=== PATIENT | female | born 1980 | race Caucasian/White ===

== ENCOUNTER 2019-05-23 13:44 | Day surgery (SDC) | payer MEDICAID ==
[2019-05-23] VITALS (8 sets, daily range): BP systolic 81–105; BP diastolic 53–72
[~2019-05-23] VITALS: Ht 157.4 cm; Wt 50.0 kg
[~2019-05-23 13:44] MED LIST: CEPH250S PO; DOXY-233 PO; IBP600T1 PO; LANS15CA5 PO; LORA10TA2 PO; METH0.2T45 PO; ONDN4T PO; PROM12.59 PO
--- NOTE | 2019-05-23 13:57 | ED Abdominal Pain ---
General Stated Complaint: R SIDE ABD PAIN, N/V Source of Information: Patient History of Present Illness Date Seen by Provider: May 23, 2019 Time Seen by Provider: 13:54 Initial Comments To ER with severe right-sided lower abdominal pain that began last night associated with nausea and vomiting. History of a partial hysterectomy but she still has both ovaries. States that her only medical history is of degenerative disc disease and scoliosis, she states that she is also diabetic but doesn't take any medications for it. She is from [facility], just moved here. Keeps her eyes closed when talking to us, has a shaved head, no teeth. Timing/Duration: 1-2 Days Severity/Quality: Moderate Radiation: No Radiation Activities at Onset: None Allergies and Home Medications Allergies Coded Allergies: Bleach (Sodium Hypochlorite) (Unverified Allergy, Unknown, 05/23/19) Latex, Natural Rubber (Unverified Allergy, Unknown, 05/23/19) Penicillins (Verified Allergy, Unknown, 05/23/19) alprazolam (Unverified Allergy, Unknown, 05/23/19) cinnamon (Unverified Allergy, Unknown, 05/23/19) clonidine (Verified Allergy, Unknown, 05/23/19) codeine (Verified Allergy, Unknown, 05/23/19) cyclobenzaprine (Unverified Allergy, Unknown, 05/23/19) hydrocodone (Verified Allergy, Unknown, 05/23/19) iodine (Verified Allergy, Unknown, 05/23/19) RASH methocarbamol (Unverified Allergy, Unknown, 05/23/19) pneumococcal vaccine (Unverified Allergy, Unknown, 05/23/19) tramadol (Unverified Allergy, Unknown, 05/23/19) Uncoded Allergies: BEES (Allergy, Unknown, 05/23/19) BODY POWDER (Allergy, Unknown, 05/23/19) FLU SHOT (Allergy, Unknown, 05/23/19) STEROIDS (Allergy, Unknown, 05/23/19) WASP (Allergy, Unknown, 05/23/19) Home Medications Doxycycline Monohydrate 100 Mg Tablet, 100 MG PO BID Prescribed by: XANDER BRANDT on 11/11/121845 Ibuprofen 600 Mg Tab, 600 MG PO Q6H Prescribed by: XANDER BRANDT on 11/11/121845 Methylergonovine Maleate 0.2 Mg Tab, 1 EACH PO TID Prescribed by: XANDER BRANDT on 11/11/12 1846 Ondansetron Hcl 4 Mg Tab, 1 TAB PO BID, (Reported) Patient Home Medication List Home Medication List Reviewed: Yes Review of Systems Review of Systems Constitutional: see HPI EENTM: No Symptoms Reported Respiratory: No Symptoms Reported Cardiovascular: No Symptoms Reported Gastrointestinal: See HPI, Abdominal Pain, Nausea Genitourinary: No Symptoms Reported Musculoskeletal: no symptoms reported Skin: no symptoms reported Psychiatric/Neurological: No Symptoms Reported Endocrine: No Symptoms Reported Hematologic/Lymphatic: No Symptoms Reported Past Vxkdrhe-Ajgyzt-Tctcxl Hx Patient Social History Recent Foreign Travel: No Past Medical History Asthma Reproductive Disorders: No Female Reproductive Disorders: Menstrual Problems Sexually Transmitted Disease: No HIV/AIDS: No Bladder Infection Cervical ADD/ADHD, Bipolar, Schizophrenia, Depression Family Medical History No Pertinent Family Hx Physical Exam Vital Signs Vital Signs - First Documented 05/23/19 13:44 Temp 38.1 Pulse 98 Resp 18 B/P (MAP) 84/44 (57) Pulse Ox 99 O2 Delivery Room Air Capillary Refill : Height/Weight/BMI Height: '" Weight: 97lbs. oz. [id number]; BMI Method:Stated General Appearance: WD/WN, no apparent distress HEENT: PERRL/EOMI, normal ENT inspection Respiratory: no respiratory distress, no accessory muscle use Gastrointestinal: normal bowel sounds, soft, tenderness Extremities: normal range of motion, non-tender Neurologic/Psychiatric: alert, normal mood/affect, oriented x 3 Skin: normal color, warm/dry Progress/Results/Core Measures Results/Orders Lab Results Laboratory Tests Test 05/23/19 13:55 05/23/19 14:13 Range/Units White Blood Count 10.7 4.3-11.0 10^3/uL Red Blood Count 4.92 4.35-5.85 10^6/uL Hemoglobin 14.7 11.5-16.0 G/DL Hematocrit 42 35-52 % Mean Corpuscular Volume 86 80-99 FL Mean Corpuscular Hemoglobin 30 25-34 PG Mean Corpuscular Hemoglobin Concent 35 32-36 G/DL Red Cell Distribution Width 12.7 10.0-14.5 % Platelet Count 160 130-400 10^3/uL Mean Platelet Volume 10.9 H 7.4-10.4 FL Neutrophils (%) (Auto) 92 H 42-75 % Lymphocytes (%) (Auto) 4 L 12-44 % Monocytes (%) (Auto) 3 0-12 % Eosinophils (%) (Auto) 1 0-10 % Basophils (%) (Auto) 0 0-10 % Neutrophils # (Auto) 9.8 H 1.8-7.8 X 10^3 Lymphocytes # (Auto) 0.5 L 1.0-4.0 X 10^3 Monocytes # (Auto) 0.4 0.0-1.0 X 10^3 Eosinophils # (Auto) 0.1 0.0-0.3 10^3/uL Basophils # (Auto) 0.0 0.0-0.1 10^3/uL Neutrophils % (Manual) 92 % Lymphocytes % (Manual) 2 % Monocytes % (Manual) 3 % Eosinophils % (Manual) 1 % Band Neutrophils 2 % Toxic Granulation 1+ Dohle Bodies MODERATE Blood Morphology Comment NORMAL Sodium Level 138 135-145 MMOL/L Potassium Level 3.9 3.6-5.0 MMOL/L Chloride Level 107 98-107 MMOL/L Carbon Dioxide Level 22 21-32 MMOL/L Anion Gap 9 5-14 MMOL/L Blood Urea Nitrogen 15 7-18 MG/DL Creatinine 0.75 0.60-1.30 MG/DL Estimat Glomerular Filtration Rate > 60 BUN/Creatinine Ratio 20 Glucose Level 110 H 70-105 MG/DL Calcium Level 9.5 8.5-10.1 MG/DL Corrected Calcium 9.1 8.5-10.1 MG/DL Total Bilirubin 0.6 0.1-1.0 MG/DL Aspartate Amino Transf (AST/SGOT) 12 5-34 U/L Alanine Aminotransferase (ALT/SGPT) 7 0-55 U/L Alkaline Phosphatase 56 40-136 U/L Total Protein 6.6 6.4-8.2 GM/DL Albumin 4.5 3.2-4.5 GM/DL Urine Color ORANGE Urine Clarity SL CLOUDY Urine pH 6.5 5-9 Urine Specific [place] 1.020 1.016-1.022 Urine Protein 1+ H NEGATIVE Urine Glucose (UA) NEGATIVE NEGATIVE Urine Ketones 1+ H NEGATIVE Urine Nitrite NEGATIVE NEGATIVE Urine Bilirubin 1+ H NEGATIVE Urine Urobilinogen 2.0 < = 1.0 MG/DL Urine Leukocyte Esterase 2+ H NEGATIVE Urine RBC (Auto) NEGATIVE NEGATIVE Urine RBC NONE /HPF Urine WBC 10-25 H /HPF Urine Crystals NONE /LPF Urine Bacteria MODERATE H /HPF Urine Casts NONE /LPF Urine Mucus MODERATE H /LPF Urine Culture Indicated YES Urine Opiates Screen NEGATIVE NEGATIVE Urine Oxycodone Screen NEGATIVE NEGATIVE Urine Methadone Screen NEGATIVE NEGATIVE Urine Propoxyphene Screen NEGATIVE NEGATIVE Urine Barbiturates Screen NEGATIVE NEGATIVE Ur Tricyclic Antidepressants Screen NEGATIVE NEGATIVE Urine Phencyclidine Screen NEGATIVE NEGATIVE Urine Amphetamines Screen NEGATIVE NEGATIVE Urine Methamphetamines Screen NEGATIVE NEGATIVE Urine Benzodiazepines Screen NEGATIVE NEGATIVE Urine Cocaine Screen NEGATIVE NEGATIVE Urine Cannabinoids Screen NEGATIVE NEGATIVE My Orders Orders - MARTIN HUFF [employer] Cbc With Automated Diff (05/23/19 13:52) Comprehensive Metabolic Panel (05/23/19 13:52) Ua Culture If Indicated (05/23/19 13:52) Drug Screen Stat (Urine) (05/23/19 13:52) Ed Iv/Invasive Line Start (05/23/19 13:52) Ns Iv 1000 Ml (Sodium Chloride 0.9%) (05/23/19 14:00) Ketorolac Injection (Toradol Injection) (05/23/19 14:00) Ct Abd/Pelvis Wo(Kidney Stone) (05/23/19 13:52) Ondansetron Injection (Zofran Injectio (05/23/19 14:15) Manual Differential (05/23/19 13:55) Medications Given in ED Current Medications Medications Dose Ordered Sig/Delon Route Start Time Stop Time Status Last Admin Dose Admin Ketorolac Tromethamine 15 mg ONCE ONCE IVP 05/23/19 14:00 05/23/19 14:01 DC 05/23/19 14:15 15 MG Ondansetron HCl 8 mg ONCE ONCE IVP 05/23/19 14:15 05/23/19 14:16 DC 05/23/19 14:15 8 MG Vital Signs/I&O 05/23/19 13:44 Temp 38.1 Pulse 98 Resp 18 B/P (MAP) 84/44 (57) Pulse Ox 99 O2 Delivery Room Air Departure Communication (Admissions) Time/Spoke to Admitting Phy: 15:[address] Bills, recommends appendectomy Impression Primary Impression: Urinary tract infection Additional Impressions: Right lower quadrant pain Appendicolith Disposition: ADMITTED INPATIENT Condition: Stable Admissions Decision to Admit Reason: Admit from ER (General) Decision to Admit/Date: May 23, 2019 Time/Decision to Admit Time: 15:39 Departure-Patient Inst. Referrals: NO,LOCAL PHYSICIAN (PCP/Family) Primary Care Physician MARTIN HUFF APRN May 23, 2019 13:57
[2019-05-23] MEDS ORDERED: NS IV 1000 ML 1,000 ML IV SCH (14:00)
[2019-05-23] MEDS ORDERED: KETOROLAC 30 MG/ML VIAL IVP ONE (14:00)
[2019-05-23 14:03] LABS: BASOPHILS % (AUTO) 0 % (0-10); EOSINOPHILS # (AUTO) 0.1 10^3/uL (0.0-0.3); EOSINOPHILS % (AUTO) 1 % (0-10); HEMATOCRIT 42 % (35-52); HEMOGLOBIN 14.7 G/DL (11.5-16.0); LYMPHOCYTES # (AUTO) 0.5 X 10^3 (1.0-4.0); LYMPHOCYTES % (AUTO) 4 % (12-44); MEAN CORPUSCULAR HEMOGLOBIN 30 PG (25-34); MEAN CORPUSCULAR HGB CONC 35 G/DL (32-36); MEAN CORPUSCULAR VOLUME 86 FL (80-99); MEAN PLATELET VOLUME 10.9 FL (7.4-10.4); MONOCYTES # (AUTO) 0.4 X 10^3 (0.0-1.0); MONOCYTES % (AUTO) 3 % (0-12); NEUTROPHILS # (AUTO) 9.8 X 10^3 (1.8-7.8); NEUTROPHILS % (AUTO) 92 % (42-75); PLATELET COUNT 160 10^3/uL (130-400); RED CELL DISTRIBUTION WIDTH 12.7 % (10.0-14.5); WHITE BLOOD COUNT 10.7 10^3/uL (4.3-11.0)
[2019-05-23] MEDS ORDERED: ONDANSETRON 4 MG/2 ML (SDV) Z0FRAN IVP ONE (14:15)
[2019-05-23 14:20] LABS: CLARITY,URINE SL CLOUDY; COLOR,URINE ORANGE; GLUCOSE, URINE (UA) NEGATIVE (NEGATIVE); KETONES,URINE 1+ (NEGATIVE); LEUKOCYTE ESTERASE ,URINE 2+ (NEGATIVE); NITRITE,URINE NEGATIVE (NEGATIVE); PH,URINE 6.5 (5-9); PROTEIN,URINE 1+ (NEGATIVE)
[2019-05-23 14:27] LABS: ALANINE AMINOTRANSFERASE 7 U/L (0-55); ALBUMIN 4.5 GM/DL (3.2-4.5); ALKALINE PHOSPHATASE 56 U/L (40-136); BILIRUBIN,TOTAL 0.6 MG/DL (0.1-1.0); BUN/CREATININE RATIO 20; CALCIUM 9.5 MG/DL (8.5-10.1); CARBON DIOXIDE 22 MMOL/L (21-32); CHLORIDE 107 MMOL/L (98-107); CREATININE SERUM 0.75 MG/DL (0.60-1.30); GFR ESTIMATED > 60; GLUCOSE 110 MG/DL (70-105); POTASSIUM 3.9 MMOL/L (3.6-5.0); SODIUM 138 MMOL/L (135-145); TOTAL PROTEIN 6.6 GM/DL (6.4-8.2)
[2019-05-23 14:33] LABS: AMPHETAMINE SCREEN, URINE NEGATIVE (NEGATIVE); BARBITURATE SCREEN URINE NEGATIVE (NEGATIVE); BENZODIAZEPINES SCREEN URINE NEGATIVE (NEGATIVE); CANNABINOID SCREEN, URINE NEGATIVE (NEGATIVE); COCAINE SCREEN URINE NEGATIVE (NEGATIVE); METHADONE STAT NEGATIVE (NEGATIVE); METHAMPHETAMINE SCREEN URINE S NEGATIVE (NEGATIVE); OPIATE SCREEN URINE NEGATIVE (NEGATIVE); OXYCODONE STAT NEGATIVE (NEGATIVE); PROPOXYPHENE STAT NEGATIVE (NEGATIVE); TRICYCLIC ANTIDEPRESSANTS SCRE NEGATIVE (NEGATIVE)
[2019-05-23 14:34] LABS: BAND NEUTROPHILS 2 %; EOSINOPHILS % (MANUAL) 1 %; LYMPHOCYTES % (MANUAL) 2 %; MONOCYTES % (MANUAL) 3 %; NEUTROPHILS % (MANUAL) 92 %; RBC MORPH NORMAL
[2019-05-23 14:35] LABS: TOXIC GRANULATION/VACUOLAZATIO 1+
[2019-05-23 14:45] LABS: BACTERIA,URINE MODERATE /HPF
[2019-05-23 14:46] LABS: BILIRUBIN,URINE 1+ (NEGATIVE)
--- NOTE | 2019-05-23 15:19 | Diagnostic Imaging Report ---
CLINICAL INDICATION: Patient with nausea, vomiting, right lower quadrant pain, and fever with onset last night and is worse today. Patient has history of kidney stones. EXAM: CT exam of the abdomen and pelvis is performed without IV or oral contrast using stone protocol. Coronal and sagittal reformatted images were created. Auto Exposure Controls were utilized during the CT exam to meet ALARA standards for radiation dose reduction. COMPARISONS: None. FINDINGS: Visualized lung bases: Unremarkable. Liver: Unremarkable as visualized. Gallbladder: Unremarkable. Pancreas: Unremarkable as visualized. Spleen: Unremarkable as visualized. Adrenal glands: Unremarkable. Kidneys/ ureters: Unremarkable as visualized. Aorta: Unremarkable as visualized. Intra-abdominal/retroperitoneal contents: Unremarkable. Intestines: Unremarkable as visualized. Appendix: There is high-density material seen within the proximal appendix. The distal aspect of the appendix is partially obscured by closely adjacent small bowel. There is no adjacent fat stranding and the visualized portion of the appendix is unremarkable. Bladder: Unremarkable as visualized. Pelvic organs: The uterus is surgically resected. The expected regions of the adnexa bilaterally show no significant abnormality. There is a small amount of free fluid in the pelvis. Extra-abdominal/ pelvis regions: Unremarkable. Abdominal wall: Unremarkable. Bones: There is chronic bilateral L5 spondylolysis with grade 1 anterolisthesis of L5 on S1. IMPRESSION: 1: The appendix is not completely visualized, but the proximal and mid portions show no dilation or adjacent fat stranding. There is high density within the proximal appendix which may represent appendicolith or ingested debris. The distal portion of the appendix is obscured by closely adjacent small bowel. There is no adjacent fat stranding seen. If there is continued concern for appendicitis, then repeat CT scan with long oral contrast prep to opacify the distal intestines and cecum would help better evaluate. 2: Small amount of free fluid in the pelvis is seen which may be physiologic. 3: Chronic bilateral L5 spondylolysis with grade 1 anterolisthesis of L5 on S1. Dictated by: Dictated on workstation # [id number]
--- NOTE | 2019-05-23 15:22 | NUR ---
PT RESTING QUIETLY, FAMILY AT BEDSIDE. NO DISTRESS OR DISCOMFORT NOTED. NO OTHER C/O VOICED
[2019-05-23] MEDS ORDERED: metroNIDAZOLE 500MG/100ML IVPB 100 ML IV ONE (15:45)
[2019-05-23] MEDS ORDERED: CIPROFLOXACIN IV 400MG/200ML 200 ML IV ONE (15:45)
--- NOTE | 2019-05-23 15:52 | NUR ---
ANESTHESIA ET MED STUDENTS TO BEDSIDE
[2019-05-23] MEDS ORDERED: ROCURONIUM 10 MG/ML 5 ML SYRINGE IV ONE (16:00)
[2019-05-23] MEDS ORDERED: SEVOFLURANE (ULTANE) 15 ML INHAL SOLN ONE (16:00)
[2019-05-23] MEDS ORDERED: LIDOCAINE PF 2% 5 ML (XYLOCAINE) VIAL ONE (16:00)
[2019-05-23] MEDS ORDERED: ONDANSETRON 4 MG/2 ML (SDV) Z0FRAN ONE (16:00)
[2019-05-23] MEDS ORDERED: SUCCINYLCHOLINE INJ 100 MG/5 ML SYR ONE (16:00)
[2019-05-23] MEDS ORDERED: fentaNYL INJECTION 100 MCG/2 ML AMP ONE (16:00)
[2019-05-23] MEDS ORDERED: proPOfol 200 MG/20 ML (DIPRIVAN) VIAL IV ONE (16:00)
[2019-05-23] MEDS ORDERED: MIDAZOLAM 2 MG/2 ML (VERSED) VIAL ONE (16:01)
[2019-05-23] MEDS ORDERED: BUP/EPI 0.5% 1:200,000 (SENSORCAINE) 30 ML VIAL ONE (16:08)
--- NOTE | 2019-05-23 16:10 | Consultation - Surgery ---
[facility] 05/23/19 1610: History of Present Illness History of Present Illness Patient Consulted On(natalie/time) 05/23/19 16:02 Date Seen by Provider: May 23, 2019 Time Seen by Provider: 16:02 History of Present Illness Kecia is a 38 year old female that presented to [facility] ER with RLQ abdominal pain. General surgery was consulted by Gael lion at the ER. Patient started having pain last nigh with subjective fever and associated N/V. Pain is localized to the RLQ and she denies radiation of pain at this time. It is exacerbated by movement and laying flat on back, She has not had food since 7pm last night and no drink since 4am today. She has not taken any pain Meds or ant- pyretics prior to arrival. Pertinent medical hx includes partial hystrectomy, rupture of ovarian cyst, "tympanostomy" and myringotomy. She also states she has an active right otitis media infection and is taking abx ear drops for it. She admits that her bp usually runs low in the 80s over 50s. Patient was positive for McBurney test and heal strike. CT findings showed appendicolith present and minimal fluid in peritoneum, but no sign of fat stranding or dilation of appendix. Patient states she had a bowel movement yesterday and no blood was noted she has not noticed changes in bowel caliper. Allergies and Home Medications Allergies Coded Allergies: Bleach (Sodium Hypochlorite) (Unverified Allergy, Unknown, 05/23/19) Latex, Natural Rubber (Unverified Allergy, Unknown, 05/23/19) Penicillins (Verified Allergy, Unknown, 05/23/19) alprazolam (Unverified Allergy, Unknown, 05/23/19) cinnamon (Unverified Allergy, Unknown, 05/23/19) clonidine (Verified Allergy, Unknown, 05/23/19) codeine (Verified Allergy, Unknown, 05/23/19) cyclobenzaprine (Unverified Allergy, Unknown, 05/23/19) hydrocodone (Verified Allergy, Unknown, 05/23/19) iodine (Verified Allergy, Unknown, 05/23/19) RASH methocarbamol (Unverified Allergy, Unknown, 05/23/19) pneumococcal vaccine (Unverified Allergy, Unknown, 05/23/19) tramadol (Unverified Allergy, Unknown, 05/23/19) Uncoded Allergies: BEES (Allergy, Unknown, 05/23/19) BODY POWDER (Allergy, Unknown, 05/23/19) FLU SHOT (Allergy, Unknown, 05/23/19) STEROIDS (Allergy, Unknown, 05/23/19) WASP (Allergy, Unknown, 05/23/19) Home Medications Doxycycline Monohydrate 100 Mg Tablet, 100 MG PO BID Prescribed by: XANDER BRANDT on 11/11/121845 Ibuprofen 600 Mg Tab, 600 MG PO Q6H Prescribed by: XANDER BRANDT on 11/11/121845 Methylergonovine Maleate 0.2 Mg Tab, 1 EACH PO TID Prescribed by: XANDER BRANDT on 11/11/121845 Ondansetron Hcl 4 Mg Tab, 1 TAB PO BID, (Reported) Past Rqrxpib-Wblfvv-Bhwwfe Hx Patient Social History Alcohol Use: Denies Use Recreational Drug Use: No Smoking Status: Current Everyday Smoker Type Used: Cigarettes Recent Foreign Travel: No Contact w/Someone Who Travel: No Recent Infectious Disease Expo: No Surgeries History of Surgeries: Yes (BMT) Surgeries: Adenoidectomy, Hysterectomy, Tonsillectomy Respiratory History of Respiratory Disorde: Yes Respiratory Disorders: Asthma Cardiovascular History of Cardiac Disorders: No Neurological History of Neurological Disord: No Reproductive System Hx Reproductive Disorders: No Sexually Transmitted Disease: No HIV/AIDS: No Female Reproductive Disorders: Menstrual Problems, Ovarian Cyst (ruptured ) Genitourinary Genitourinary Disorders: Bladder Infection Gastrointestinal History of Gastrointestinal Di: No Gastrointestinal Disorders: Gastroesophageal Reflux Musculoskeletal History of Musculoskeletal Dis: No Endocrine History of Endocrine Disorders: Yes (HYPOGLYCEMIC. ) Endocrine Disorders: Diabetes, Non-Insulin dep Cancer History of Cancer: Yes Cancer: Cervical Psychosocial History of Psychiatric Problem: Yes Behavioral Health Disorders: ADD/ADHD, Anxiety, Bipolar, Schizophrenia, Depression Integumentary History of Skin or Integumenta: No Blood Transfusions History of Blood Disorders: Yes (ANEMIA) Family Medical History Significant Family History: No Pertinent Family Hx Review of Systems-General Constitutional: fever, weakness EENTM: dental problems (missing teath ), other (bilateral blue tubes in ear, with right ear pain); No vision loss, No hoarseness Cardiovascular: no symptoms reported Gastrointestinal: abdominal pain (RLQ); No constipation; loss of appetite, nausea, vomiting Genitourinary: no symptoms reported Musculoskeletal: no symptoms reported Skin: no symptoms reported Psychiatric/Neurological: No Symptoms Reported Physical Exam-General Problems Physical Exam Vital Signs Vital Signs - First Documented 05/23/19 13:44 Temp 38.1 Pulse 98 Resp 18 B/P (MAP) 84/44 (57) Pulse Ox 99 O2 Delivery Room Air Capillary Refill : Less Than 3 Seconds General Appearance: WD/WN, no apparent distress, thin, other (SHAVED HEAD, SITTING IN BED, SITTING IN BED COMFORTABLY, USING PHONE, CONVERSING WITH FAMILY) Eyes: Bilateral Eye PERRL, Bilateral Eye EOMI HEENT: PERRL/EOMI, normal ENT inspection, pharynx normal, other (bl TYMPANOSTOMY TUBES VISUALIZED, NO ERYTHEMA NOT VISULAIZED; POOR DENTITION) Neck: non-tender, full range of motion Respiratory: chest non-tender, lungs clear, no respiratory distress, no accessory muscle use Cardiovascular: normal peripheral pulses (1/4 DORSAL PEDAL, 2/4 RADIAL ), no edema, tachycardia Gastrointestinal: No distended; guarding; No rebound; tenderness (rlq, Distractable); No hepatomegaly, No spleenomegaly; other (+ heal strike on right and + tenderness Mcburney ) 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, no motor/sensory deficits, alert, oriented x 3 Skin: normal color, warm/dry Lymphatic: no adenopathy Data Review Labs Laboratory Tests 05/23/19 13:55: White Blood Count 10.7, Red Blood Count 4.92, Hemoglobin 14.7, Hematocrit 42, Mean Corpuscular Volume 86, Mean Corpuscular Hemoglobin 30, Mean Corpuscular Hemoglobin Concent 35, Red Cell Distribution Width 12.7, Platelet Count 160, Mean Platelet Volume 10.9H, Neutrophils (%) (Auto) 92H, Lymphocytes (%) (Auto) 4L, Monocytes (%) (Auto) 3, Eosinophils (%) (Auto) 1, Basophils (%) (Auto) 0, Neutrophils # (Auto) 9.8H, Lymphocytes # (Auto) 0.5L, Monocytes # (Auto) 0.4, Eosinophils # (Auto) 0.1, Basophils # (Auto) 0.0, Neutrophils % (Manual) 92, Lymphocytes % (Manual) 2, Monocytes % (Manual) 3, Eosinophils % (Manual) 1, Band Neutrophils 2, Toxic Granulation 1+, Dohle Bodies MODERATE, Blood Morphology Comment NORMAL, Sodium Level 138, Potassium Level 3.9, Chloride Level 107, Carbon Dioxide Level 22, Anion Gap 9, Blood Urea Nitrogen 15, Creatinine 0.75, Estimat Glomerular Filtration Rate > 60, BUN/Creatinine Ratio 20, Glucose Level 110H, Calcium Level 9.5, Corrected Calcium 9.1, Total Bilirubin 0.6, Aspartate Amino Transf (AST/SGOT) 12, Alanine Aminotransferase (ALT/SGPT) 7, Alkaline Phosphatase 56, Total Protein 6.6, Albumin 4.5 05/23/19 14:13: Urine Color ORANGE, Urine Clarity SL CLOUDY, Urine pH 6.5, Urine Specific [place] 1.020, Urine Protein 1+H, Urine Glucose (UA) NEGATIVE, Urine Ketones 1+H , Urine Nitrite NEGATIVE, Urine Bilirubin 1+H, Urine Urobilinogen 2.0, Urine Leukocyte Esterase 2+H, Urine RBC (Auto) NEGATIVE, Urine RBC NONE, Urine WBC 10- 25H, Urine Crystals NONE, Urine Bacteria MODERATEH, Urine Casts NONE, Urine Mucus MODERATEH, Urine Culture Indicated YES, Urine Opiates Screen NEGATIVE, Urine Oxycodone Screen NEGATIVE, Urine Methadone Screen NEGATIVE, Urine Propoxyphene Screen NEGATIVE, Urine Barbiturates Screen NEGATIVE, Ur Tricyclic Antidepressants Screen NEGATIVE, Urine Phencyclidine Screen NEGATIVE, Urine Amphetamines Screen NEGATIVE, Urine Methamphetamines Screen NEGATIVE, Urine Benzodiazepines Screen NEGATIVE, Urine Cocaine Screen NEGATIVE, Urine Cannabinoids Screen NEGATIVE Assessment/Plan Assessment/Plan Admission Diagonsis 1. RLQ abdominal pain 2. Appendicolith with suspected appendicitis Assessment/Plan Appendicolith with suspected appendicitis, will perform appendectomy. Patient has been informed of risk, benefits of the procedure and understand. ADAM SHARMA DO 05/23/19 4258: History of Present Illness History of Present Illness History of Present Illness seen and evaluated in ed. rlq abd pain since around 4 am. constant no radiation. movement makes worse. pain medication made better. ct scan not visualize all of the appendix completely and appears to have appendicolith in portion visualized. Allergies and Home Medications Allergies Coded Allergies: Bleach (Sodium Hypochlorite) (Unverified Allergy, Unknown, 05/23/19) Latex, Natural Rubber (Unverified Allergy, Unknown, 05/23/19) Penicillins (Verified Allergy, Unknown, 05/23/19) alprazolam (Unverified Allergy, Unknown, 05/23/19) cinnamon (Unverified Allergy, Unknown, 05/23/19) clonidine (Verified Allergy, Unknown, 05/23/19) codeine (Verified Allergy, Unknown, 05/23/19) cyclobenzaprine (Unverified Allergy, Unknown, 05/23/19) hydrocodone (Verified Allergy, Unknown, 05/23/19) iodine (Verified Allergy, Unknown, 05/23/19) RASH methocarbamol (Unverified Allergy, Unknown, 05/23/19) pneumococcal vaccine (Unverified Allergy, Unknown, 05/23/19) tramadol (Unverified Allergy, Unknown, 05/23/19) Uncoded Allergies: BEES (Allergy, Unknown, 05/23/19) BODY POWDER (Allergy, Unknown, 05/23/19) FLU SHOT (Allergy, Unknown, 05/23/19) STEROIDS (Allergy, Unknown, 05/23/19) WASP (Allergy, Unknown, 05/23/19) Home Medications Doxycycline Monohydrate 100 Mg Tablet, 100 MG PO BID Prescribed by: XANDER BRANDT on 11/11/121845 Ibuprofen 600 Mg Tab, 600 MG PO Q6H Prescribed by: XANDER BRANDT on 11/11/121845 Methylergonovine Maleate 0.2 Mg Tab, 1 EACH PO TID Prescribed by: XANDER BRANDT on 11/11/121845 Ondansetron Hcl 4 Mg Tab, 1 TAB PO BID, (Reported) Patient Home Medication List Home Medication List Reviewed: Yes Past Ahmdage-Ucwvfb-Mnkkst Hx Reviewed Nursing Assessment Reviewed/Agree w Nursing PMH: Yes Family Medical History Significant Family History: No Pertinent Family Hx Review of Systems-General Constitutional: fever, weakness EENTM: dental problems (missing teath ), other (bilateral blue tubes in ear, with right ear pain) Respiratory: No cough, No short of breath Gastrointestinal: abdominal pain (RLQ), loss of appetite, nausea, vomiting Genitourinary: no symptoms reported Musculoskeletal: no symptoms reported Skin: no symptoms reported; No change in color, No change in hair/nails Psychiatric/Neurological: No Symptoms Reported; Denies Depressed, Denies Emotional Problems Physical Exam-General Problems Physical Exam General Appearance: WD/WN, no apparent distress HEENT: PERRL/EOMI, normal ENT inspection, other (POOR DENTITION) Neck: non-tender, full range of motion Respiratory: chest non-tender, no respiratory distress, no accessory muscle use Cardiovascular: normal peripheral pulses, tachycardia Gastrointestinal: soft, tenderness (rlq), other ( + Mcburney ) Rectal: deferred Back: no CVA tenderness Extremities: non-tender 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 Supervisory-Addendum Brief Verification & Attestation Participated in pt care: history, MDM, physical Personally performed: exam, history, MDM, supervision of care Care discussed with: Medical Student Procedures: n/a Results interpretation: Verified all documentation Verification and Attestation of Medical Student E/M Service A medical student performed and documented this service in my presence. I reviewed and verified all information documented by the medical student and made modifications to such information, when appropriate. I personally performed the physical exam and medical decision making. Adam Sharma, May 23, 2019,16:56 [facility] May 23, 2019 16:10 ADAM SHARMA DO May 23, 2019 16:53
[2019-05-23] MEDS: LACTATED RINGERS 1,000 ML IV PRN ×2 (16:12→17:37)
[2019-05-23] MEDS ORDERED: LACTATED RINGERS 1,000 ML IV PRN ×2 (16:16→16:45)
[2019-05-23] MEDS ORDERED: morphine INJ 10 MG/ML 1ML (SYR OR VIAL) IVP ONE ×2 (16:30)
[2019-05-23] MEDS ORDERED: ONDANSETRON 4 MG/2 ML (SDV) Z0FRAN IVP PRN ×2 (16:30→16:45)
[2019-05-23] MEDS ORDERED: fentaNYL INJECTION 100 MCG/2 ML AMP IVP ONE ×2 (16:30)
--- NOTE | 2019-05-23 16:43 | NUR ---
PT TO SURGERY PER DAMARIS DIEGO RN AT THIS TIME.
[2019-05-23] MEDS ORDERED: morphine INJ 10 MG/ML 1ML (SYR OR VIAL) ONE (17:26)
[2019-05-23] MEDS ORDERED: GLYCOPYRROLATE 0.2 MG/ML (ROBINUL) 2 ML VIAL ONE (17:33)
[2019-05-23] MEDS ORDERED: NEOSTIGMINE 3 MG/3 ML VIAL ONE (17:33)
--- NOTE | 2019-05-23 17:52 | Progress Note-Post Operative ---
Post-Operative Progess Note Surgeon (s)/Vender (s) Surgeon JENNIFFER SHARMA DO Vender: na Pre-Operative Diagnosis rlq abd pain, appendicolith suspected appendicitis Post-Operative Diagnosis appendicolith, right and left ovarian cysts Procedure & Operative Findings Date of Procedure 05/23/19 Procedure Performed/Findings laparoscopic appendectomy Anesthesia Type gen Estimated Blood Loss Estimated blood loss (mL): min Specimens/Packing Specimens Removed appendix JENNIFFER SHARMA DO May 23, 2019 17:52
[2019-05-23] MEDS ORDERED: CIPR-226 PO (17:56)
[2019-05-23] MEDS ORDERED: ACHD5005 PO (17:56)
[2019-05-23] MEDS ORDERED: DOCU-143 PO (17:56)
--- NOTE | 2019-05-23 17:57 | Discharge Inst-Simple/Standard ---
Discharge Inst-Standard Discharge Medications New, Converted or Re-Newed RX: RX on Chart Patient Instructions/Follow Up Plan of Care/Instructions/FU: 2 weeks Negar Activity as Tolerated: No Discharge Diet: Regular Diet Other Inst to Patient Follow up Appt: Make appointment for 2 week. Instructions: No lifting greater than 10 pounds. No strenuous activity. May shower in 24 hours, no tub bath or soaking. Use incentive spirometer at home as directed. No Smoking Skin/Wound Care: You have special glue over your incision that will fall off on it's own. Symptoms to Report: Appetite Changes, Extremity Discoloration, Numbness/Tingling, Swelling Increased, Bleeding Excessive, Eyesight Changes, Pain Increased, Urine Color Change, Constipation(Persistent), Fever over 101 degree F, Pain/Pressure in chest, Urinating Difficulty, Cough Up/Vomit Blood, Heart Beat Irreg/Pounding, Pain/Pressure in jaw, Vaginal Bleeding Increase, Cramps in feet or legs, Lightheadedness, Pain/Pressure in shoulder, Diarrhea(Persistent), Memory Changes Suddenly, Questions/Concerns, Weight gain consecutive days, Dizziness/Fainting, Nausea/Vomiting, Shortness of Breath, Weight gain over 2 pounds If questions or concerns contact your physician Or seek help at emergency department. JENNIFFER SHARMA DO May 23, 2019 17:57
--- NOTE | 2019-05-23 20:15 | NUR ---
pt family voiced concerns about going home without pain medication. this nurse explain that would have scripts for pain medication, antiboitic and stool softners.. Signifatcant other states that pharmacy is closed and what would she do for pain meds.
--- NOTE | 2019-05-23 20:25 | NUR ---
child care supervisor discuss with Dr Bills about pt concerns, dispense pack ordered our of ER,
[2019-05-23] MEDS ORDERED: RX-HYDROCODONE/APAP 5/325 MG #4 TAB PK PO ONE (20:29)
[2019-05-23] MEDS ORDERED: RX-HYDROCODONE/APAP 5/325 MG #4 TAB PK PO PRN (20:30)
--- NOTE | 2019-05-23 20:55 | NUR ---
discharge instructions gone over with patient and family members. all voices understanding of instructions. Incentive spirometry given to pt and instruction on how to use. pt able to reach 1200,
--- NOTE | 2019-05-23 21:00 | NUR ---
pt discharge per WC. to private car in care of mother and significant other.
--- NOTE | 2019-05-28 07:28 | Anesthesia-General Post-Op ---
General Patient Condition Mental Status/LOC: Same as Preop Cardiovascular: Satisfactory Nausea/Vomiting: Absent Respiratory: Satisfactory Pain: Controlled Complications: Absent Post Op Complications Complications None Follow Up Care/Instructions Patient Instructions None needed. Anesthesia/Patient Condition Patient Condition Patient is doing well, no complaints, stable vital signs, no apparent adverse anesthesia problems. No complications reported per nursing. ISI STREET CRNA May 28, 2019 07:28
--- OUTSIDE RECORDS SUMMARY | 2019-05-29 09:22 | XMS REPORT ---
Author Author Kecia Jha Organization [employer] Address Unknown Phone Unavailable Care Team Providers Care Complaint Adjuster Name Role Phone Belinda Jha CP Unavailable Allergies, Adverse Reactions, Alerts Substance Reaction Event Type Wasp Venom Info Not Available Drug Allergy Pneumovax 23 Info Not Available Drug Allergy Penicillin G Benzathine Info Not Available Drug Allergy Iodine Info Not Available Drug Allergy Influenza Virus Vacc Split PF Info Not Available Drug Aller gy Clonidine-Chlorthalidone Info Not Available Drug Allergy Cinnamon Flavor Info Not Available Drug Allergy Bee Pollen Info Not Available Drug Allergy Problems Problem Type Condition ICD-9 Code Onset Dates Condition Statu s Assessment Abnormal chest x-ray 793.19 Active Medications Medication Code System Code Instructions Start Date End Date Status D[facility]age [facility] [address]-56 10 MG Orally Three times a day Active 1 tablet Claritin 10mg tab Unknown 0 Active Unknown Zofran 4 mg tablet Unknown 0 Active Unkno wn Prevacid dr 30 mg capsule Unknown 0 Active Unknown Hydrocodone-Acetaminophen MEDISPAN [address]-39 10-500 MG Orally e very 6 hrs Active 1 tablet as needed ibuprofen Unknown 0 Oral Active 1 tab Ventolin Unknown 0 Active Unknown Xanax MEDISPAN [address]-62 1 MG Orally Twice a day A ctive 1 tablet Procedures Procedure Coding System Code Date OFFICE VISIT NEW PATIENT LEVEL 3 CPT-4 41992 Nov 09, 2013 Vital Signs Date/Time: Nov 09, 2013 Weight 99 lbs Height 63 in Blood Pressure Diastolic 68 mm Hg Blood Pressure Systolic 102 mm Hg Cardiac Monitoring Heart Rate 68 /min Temperature 98.1 F Respiratory Rate 12 /min Results CT Chest with Contrast Summary Purpose [employer] Submission
--- OUTSIDE RECORDS SUMMARY | 2019-05-29 09:22 | XMS REPORT ---
Author Author Kecia Laguerre Organization [employer] Address Unknown Phone Unavailable Care Team Providers Care Cut Off Saw Set Up Operator Name Role Phone Rena Laguerre CP Unavailable Allergies No Known Allergies Problems Problem Type Condition ICD-9 Code Onset Dates Condition Statu s Problem Smoker 305.1 Active Problem Bee sting allergy V15.06 Active Problem Anxiety 300.00 Active Problem Back pain 724.5 Active Problem GERD (gastroesophageal reflux disease) 530.81 Active Problem Asthma 493.90 Active Problem Scoliosis 737.30 Active Problem Allergic rhinitis 477.9 Active Medications No Known Medications Results No Known Results Summary Purpose [employer] Submission
--- OUTSIDE RECORDS SUMMARY | 2019-05-29 09:22 | XMS REPORT ---
Author Author Kecia Laguerre Organization [employer] Address Unknown Phone Unavailable Care Team Providers Care Senior Applications Architect Name Role Phone Rena Laguerre CP Unavailable Allergies No Known Allergies Problems Problem Type Condition ICD-9 Code Onset Dates Condition Statu s Problem Anxiety 300.00 Active Problem Scoliosis 737.30 Active Problem Bee sting allergy V15.06 Active Problem Asthma 493.90 Active Problem Smoker 305.1 Active Problem Allergic rhinitis 477.9 Active Problem GERD (gastroesophageal reflux disease) 530.81 Active Medications No Known Medications Results No Known Results Summary Purpose [employer] Submission
--- OUTSIDE RECORDS SUMMARY | 2019-05-29 09:22 | XMS REPORT ---
Author Author Kecia Laguerre Organization [employer] Address Unknown Phone Unavailable Care Team Providers Care Ore Crusher Name Role Phone Rena Laguerre CP Unavailable Allergies No Known Allergies Problems Problem Type Condition ICD-9 Code Onset Dates Condition Statu s Problem Smoker 305.1 Active Problem Bee sting allergy V15.06 Active Problem Anxiety 300.00 Active Problem History of breast cancer V10.3 Act bharath Problem GERD (gastroesophageal reflux disease) 530.81 Active Problem Asthma 493.90 Active Problem Scoliosis 737.30 Active Problem Allergic rhinitis 477.9 Active Medications No Known Medications Results No Known Results Summary Purpose [employer] Submission
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
--- OUTSIDE RECORDS SUMMARY | 2019-05-29 09:23 | XMS REPORT | Summary of Care ---
Author Author Kecia Ambriz D.O. Organization Unknown Address [address] [place], [place] [id number] Phone Unavailable Care Team Providers Care Reverberatory Furnace Operator Name Role Phone Nidia Ambriz D.O. Unavailable Unavailable Nidia Ambriz PP Unavailable Unavailable Unavailable Functional Status Functional Status Health Issues* Name Dates Details Functional status health issues are not documented Status: Cognitive Status Health Issues* Name Dates Details Cognitive status health issues are not d ocumented Status: Problems Name Dates Details Migraine headache (346.90, G43.909) Status: Active Arthritis of knee (716.96, M12.9) Status: Active Scoliosis (737.30, M41.9) Status: Active Amenorrhea (626.0, N91.2) Status: Active Lumbar disc disease (722.93, M51.9) Status: Active Asthma (493.90, J45.909) Status: Active Anterolisthesis (756.12, Q76.2) Status: Active Neck strain (847.0, S16.1XXA) Status: Active Pain of right clavicle (733.90, M25.511) Status: Active Right hip pain (719.45, M25.551) Status: Active GERD (gastroesophageal reflux disease) ( 530.81, K21.9) Status: Active Gastroenteritis (558.9, K52.9) Status: Active Acute bronchitis (466.0, J20.9) Status: Active Knee pain, left (719.46, M25.562) Status: Active Lumbago (724.2, M54.5) Status: Active 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 Quantity: 30 Nidia Ambriz D.O.ActiveVentolin HFA AERS * Refills: 0 ActiveCeleXA 10 MG Oral Tablet take one tablet by mouth every day * Quantity: 30 Refills: 6 Nidia Ambriz D.O.* Started 15-Feb-2014 ActiveMeloxicam 7.5 MG Oral Tablet TAKE 1 TABLET ONCE TO TWICE DAILY NEEDED WITH FOOD * Quantity: 30 Refills: 2 Nidia Ambriz D.O.* Started 15-Feb-2014 ActiveOndansetron 4 MG Oral Tablet Dispersible 1 po q 8 hrs PRN * Quantity: 10 Refills: 0 Nidia Ambriz.O.* Started 25-Feb-2014 ActivePantoprazole Sodium 40 MG Oral Tablet Delayed Release take one tablet by mouth every day * Quantity: 30 Refills: 2 Nidia Ambriz.O.* Started 02-Apr-2014 ActiveZithromax Z-Gibson 250 MG Oral Tablet TAKE 2 TABLETS ON DAY 1 THEN TAKE 1 TABLET A DAY FOR 4 DAYS. * Quantity: 1 Refills: 0 Nidia Ambriz.O.* Started 19-Apr-2014 Active6 Tablet Disp Pack Doxycycline Monohydrate 100 MG Oral Capsule TAKE 1 CAPSULE TWICE DAILY WITH FOOD. * Quantity: 14 Refills: 0 Nidia Ambriz D.O.* Started 07-May-2014 ActivePredniSONE 10 MG Oral Tablet TAKE 6 TABLETS TODAY, THEN DECREASE BY 1 TABLET EACH DAY UNTIL GONE. * Quantity: 21 Refills: 0 Manjinder Ambriz. Prakash D.O.* Started 07-May-2014 ActiveMeloxicam 7.5 MG Oral Tablet Take 1 tablet twice daily * Quantity: 60 Refills: 2 Nidia Ambriz D.O.* Started 02-Jun-2014 ActiveMethocarbamol 500 MG Oral Tablet TAKE 1 TABLET Every 8 hours prn spasm * Quantity: 30 Refills: 1 Nidia Ambriz D.O.* Started 02-Jun-2014 Active Allergies and Adverse Reactions Name Dates Details clonidine Status: Active Codeine Status: Active iodine Status: Active KlonoPIN TABS Status: Active Penicillins Reaction: Anaphylaxi s (Severe) Status: Active Bee sting Status: Active Cinnamon Status: Active Past Medical History Name Dates Details History of Illicit Drug Use (305.90, F19 .90) Status: Resolved History of malignant neoplasm of breast (V10.3, Z85.3) Status: Resolved Procedures Procedure Dates Details History of Knee Surgery History of Hysterectomy Procedures not documented Immunization Name Dates Details Immunizations not documented Social History Smoking Status* Unknown if ever smoked Vital Signs Date Test Result Details 02-Jun-2014 09:18 BP Systolic 110 mm[Hg] Status: BP Diastolic 74 mm[Hg] Status: Heart Rate 90 /min Status: Temperature 97.3 f Status: Weight 96.1875 lb Status: O2 SAT 98 % Status: Body Mass Index Calculated 17.31 kg/m2 Status: Body Surface Area Calculated 1.41 m2 Status: Results Date Description Value Details 09-Jun-2014 12:26 MRI KNEE LEFT Comments: Exa m Date: 09:57Dictation Date: 12:26 XMR EXT KNEE LEFT (Better) Plan of Care Planned Observations* Name Dates Details Planned Goals not documented Goal Planned Encounters* Appointment; Provider: Nidia Ambriz On 11-Aug-2014 10:30 * Appointment; Provider: Nidia Ambriz On 21-Jun-2014 14:45 Instructions * Instructions not documented Encounters Appointment; Nidia Ambriz Encounter Diagnosis: Problem not documented On 02-Jun-2014 09:15 Appointment; Nidia Ambriz Encounter Diagnosis: Problem not documented On 07-May-2014 13:15 Appointment; Nidia Ambriz Encounter Diagnosis: Problem not documented On 05-May-2014 14:00 Appointment; Nidia Ambriz Encounter Diagnosis: Problem not documented On 19-Apr-2014 11:00 Appointment; Nidia Ambriz Encounter Diagnosis: Problem not documented On 02-Apr-2014 14:30 Appointment; Ezekiel Blanc Encounter Diagnosis: Problem not documented On 08-Mar-2014 16:00 Appointment; Nidia Ambriz Encounter Diagnosis: Problem not documented On 25-Feb-2014 13:30 Appointment; Nidia Ambriz Encounter Diagnosis: Problem not documented On 15-Feb-2014 10:30 Appointment; Piotr Myers Encounter Diagnosis: Problem not documented On 08-Feb-2014 12:45 Appointment; Jordon Telles Encounter Diagnosis: Problem not documented On 01-Dec-2013 08:30
--- OUTSIDE RECORDS SUMMARY | 2019-05-29 09:23 | XMS REPORT | Summary of Care ---
Author Author Kecia Ambriz D.O. Organization Unknown Address [address] [place], [place] [id number] Phone Unavailable Care Team Providers Care Records Administrator Name Role Phone Nidia Ambriz D.O. Unavailable [...] Status: Active Asthma (493.90, J45.909) Status: Active Lumbago (724.2, M54.5) Status: Active Anterolisthesis (756.12, Q76.2) Status: Active Neck strain (847.0, S16.1XXA) Status: Active Pain of right clavicle (733.90, M25.511) Status: Active Right hip pain (719.45, M25.551) Status: Active GERD (gastroesophageal reflux disease) ( 530.81, K21.9) Status: Active Medications Name Dates Details Loratadine 10 MG Oral Tablet ActiveVentolin HFA AERS * Refills: 0 ActiveCeleXA 10 MG Oral Tablet take one tablet by mouth every day * Quantity: 30 Refills: 6 Nidia Ambriz.Demarco.* Started 15-Feb-2014 ActiveCyclobenzaprine HCl - 10 MG Oral Tablet TAKE 1 TABLET Bedtime * Quantity: 7 Refills: 0 Nidia Ambriz D.O.* Started 15-Feb-2014 ActiveOndansetron 4 MG Oral Tablet Dispersible 1 po q 8 hrs PRN * Quantity: 10 Refills: 0 Nidia Ambriz.O.* Started 25-Feb-2014 ActivePantoprazole Sodium 40 MG Oral Tablet Delayed Release take one tablet by mouth every day * Quantity: 30 Refills: 2 Nidia Ambriz D.O.* Started 02-Apr-2014 ActiveMeloxicam 7.5 MG Oral Tablet TAKE 1 TABLET ONCE TO TWICE DAILY NEEDED WITH FOOD * Quantity: 30 Refills: 2 Nidia Ambriz.O.* Started 15-Feb-2014 Active Allergies and Adverse Reactions Name Dates [...] History of Knee Surgery History of Hysterectomy Comprehensive Metabolic Panel 1212 Ordered:15-Feb-2014 LIPID PROFILE 1184 Ordered:15-Feb-2014 Immunization Name Dates Details Immunizations not documented Social History Smoking Status* Unknown if ever smoked Vital Signs Date Test Result Details 02-Apr-2014 14:34 Temperature 97.7 f Status: Weight 100.25 lb Status: Body Mass Index Calculated 18.04 kg/m2 Status: Body Surface Area Calculated 1.43 m2 Status: Results Date Description Value Details Results not documented Plan of Care Planned Observations* Name Dates Details Planned Goals not documented Goal Planned Encounters* Appointment; Provider: Nidia Ambriz On 11-Aug-2014 10:30 Instructions * Instructions not documented Encounters Appointment; [...]
--- OUTSIDE RECORDS SUMMARY | 2019-05-29 09:23 | XMS REPORT ---
Author Author Kecia Jha Organization [employer] Address Unknown Phone Unavailable Care Team Providers Care Gold Assayer Name Role Phone Belinda Jha CP Unavailable [...] Bee Pollen Info Not Available Drug Allergy latex Info Not Available Non Drug Allergy Problems Problem Type Condition ICD-9 Code Onset Dates Condition Statu s Assessment Acute bronchitis 466.0 Active Problem Anxiety 300.00 Active Problem Scoliosis 737.30 Active Problem Bee sting allergy V15.06 Active Problem Asthma 493.90 Active Problem Smoker 305.1 Active Problem Allergic rhinitis 477.9 Active Problem GERD (gastroesophageal reflux disease) 530.81 Active Medications Medication Code System Code Instructions Start Date End Date Status Dosage PredniSONE [facility] [address]-55 20 MG Orally Once a day Dec 21, 2013 Dec 26, 2013 Active [address] 30 mg capsule [facility] [address]-62 Active Unknown Ventolin Unknown 0 as needed Active 2 puffs EpiPen [facility] [address]-95 0.3 MG/0.3ML Injection As indicat ed Nov 16, 2013 Active as directed Flexeril [facility] [address]-29 10 MG Orally Three times a day Active 1 tablet Claritin 10mg tab [facility] [address]-99 A ctive Unknown Alprazolam [facility] [address]-25 0.25 MG Orally Three times a day as needed Nov 16, 2013 Active 1 tablet Hydrocodone-Acetaminophen [facility] [address]-02 5-325 MG orally every 4 hours as needed Active 1 tablet as need ed ibuprofen Unknown 0 Oral Active 1 tab Procedures Procedure Coding System Code Date OFFICE VISIT EST PATIENT LEVEL 3 CPT-4 93455 Dec 21, 2013 Vital Signs Date/Time: Dec 21, 2013 Weight 96.4 lbs Height 63 in Blood Pressure Diastolic 60 mm Hg Blood Pressure Systolic 92 mm Hg Cardiac Monitoring Heart Rate 80 /min Temperature 98.1 F Respiratory Rate 18 /min Results No Known Results Summary Purpose eClinicalWorks Submission
--- OUTSIDE RECORDS SUMMARY | 2019-05-29 09:23 | XMS REPORT ---
Author JYOTI Mirza Organization Unknown Address Unknown Phone Unavailable Care Team Providers Care Patient Care Representative Name Role Phone UNASSIGNED DOCTOR , DOCTOR PP [phone] Reason For Visit Chief Complaint ABDOMINAL PAIN Social History Functional Status Vital Signs Results Problems Encounter Diagnosis No relevant problems exist. Encounters Encounter Diagnosis No relevant problems exist. Plan of Care Procedures No relevant procedures performed. Immunizations No immunizations administered or ordered. Hospital Course Hospital Discharge Instructions Allergies, Adverse Reactions, Alerts * Iodinated Contrast Media - IV Dye causes Hives and Swelling/Edema. * Latex Allergy has not been assessed. * IV Contrast Allergy has not been assessed. Medication Medication reconciliation has not been performed.
--- OUTSIDE RECORDS SUMMARY | 2019-05-29 09:23 | XMS REPORT | Summary of Care ---
Author Author Kecia Blanc M.D. Organization Unknown Address [address], [place] [id number] Phone Unavailable Care Team Providers Care Special Needs Babysitter Name Role Phone Nidia Ambriz D.O. Unavailable [...] K21.9) Status: Active Medications Name Dates Details Meloxicam 7.5 MG Oral Tablet TAKE 1 TABLET ONCE TO TWICE DAILY NEEDED WITH FOOD Quantity: 30 Nidia Ambriz D.O.* Started 15-Feb-2014 ActivePantoprazole Sodium 40 MG Oral Tablet Delayed Release take one tablet by mouth every day * Quantity: 30 Refills: 2 Nidia Ambriz D.O.* Started 02-Apr-2014 ActiveOndansetron 4 MG Oral Tablet Dispersible 1 po q 8 hrs PRN * Quantity: 10 Refills: 0 Nidia Ambriz D.O.* Started 25-Feb-2014 ActiveCyclobenzaprine HCl - 10 MG Oral Tablet TAKE 1 TABLET Bedtime * Quantity: 7 Refills: 0 Nidia Ambriz D.O.* Started 15-Feb-2014 ActiveCeleXA 10 MG Oral Tablet take one tablet by mouth every day * Quantity: 30 Refills: 6 Nidia Ambriz D.O.* Started 15-Feb-2014 ActiveVentolin HFA AERS * Refills: 0 ActiveLoratadine 10 MG Oral Tablet * Refills: 0 Active Allergies and Adverse Reactions Name Dates [...] History of Knee Surgery History of Hysterectomy LIPID PROFILE 1184 Ordered:15-Feb-2014 Comprehensive Metabolic Panel 1212 Ordered:15-Feb-2014 Immunization Name Dates Details Immunizations not [...]
--- OUTSIDE RECORDS SUMMARY | 2019-05-29 09:23 | XMS REPORT | Summary of Care ---
Author Author Kecia Ambriz D.O. Organization Unknown Address [address], [place] [id number] Phone Unavailable Care Team Providers Care Tool Design Engineer Name Role Phone Nidia Ambriz D.O. Unavailable [...] day * Quantity: 30 Refills: 6 Nidia Ambriz.O.* Started 15-Feb-2014 ActiveCyclobenzaprine HCl - 10 MG Oral Tablet TAKE 1 TABLET Bedtime * Quantity: 7 Refills: 0 Nidia Ambriz.ODaniela* Started 15-Feb-2014 ActiveMeloxicam 7.5 MG Oral Tablet TAKE 1 TABLET ONCE TO TWICE DAILY NEEDED WITH FOOD * Quantity: 30 Refills: 2 Nidia Ambriz.ODaniela* Started 15-Feb-2014 ActiveOndansetron 4 MG Oral Tablet Dispersible 1 po q 8 hrs PRN * Quantity: 10 Refills: 0 Nidia Ambriz D.O.* Started 25-Feb-2014 ActivePantoprazole Sodium 40 MG Oral Tablet Delayed Release take one tablet by mouth every day * Quantity: 30 Refills: 2 Nidia Ambriz D.O.* Started 02-Apr-2014 Active Allergies and Adverse Reactions Name Dates [...] Body Surface Area Calculated 1.43 m2 Status: 08-Mar-2014 16:15 BP Systolic 122 mm[Hg] Status: BP Diastolic 86 mm[Hg] Status: Heart Rate 84 /min Status: Respiration Rate 16 /min Status: Results Date Description Value Details 08-Mar-2014 16:51 XRay CLAVICLE-Right Comments : Exam Date: 16:33Dictation Date: 16:51 X CLAVICLE RIGHT ([facility]) 16:52 XRay HIP-Right Comments: Exam Date: 16:33Dictation Date: 16:52 X HIP COMP (MIN 2V) RT ([facility]) Plan of Care Planned Observations* Name [...]
--- OUTSIDE RECORDS SUMMARY | 2019-05-29 09:23 | XMS REPORT | Summary of Care ---
Author Author Koki Matthew, Kecia Ruvalcaba Organization Unknown Address [address] [place], [place] [id number] Phone Unavailable Functional Status Functional Status Health Issues* Name Dates Details No known functional status health issues Status: Cognitive Status Health Issues* Name Dates Details No known cognitive status health issues Status: Problems Name Dates Details Positive test (V72.42, Z32.01) Status: Active Medications Name Dates Details No Reported Medications Active Allergies and Adverse Reactions Name Dates Details Penicillins Status: Active Procedures Procedure Dates Details Surgical history not documented BETA HCG 3500 Comprehensive Metabolic Panel 1212 CBC w/ Auto Diff 7150 PROLACTIN 3612 Urinalysis, Reflex to Microscopic or Culture PRN 8005 ULTRASOUND PELVIC SONO Immunization Name Dates Details Immunizations not documented Social History Smoking Status* Unknown if ever smoked Vital Signs Date Test Result Details 01-Dec-2013 08:53 BP Systolic 87 mm[Hg] Status: BP Diastolic 56 mm[Hg] Status: Heart Rate 65 /min Status: Temperature 99 f Status: O2 SAT 100 % Status: Results Date Description Value Details Results not documented Plan of Care Instructions* Instructions not documented Planned Observations* Name Dates Details Planned Goals not documented Goal Instructions * No Known Instructions Encounters Appointment; Jordon Telles Encounter Diagnosis: Problem not documented On 01-Dec-2013 08:30
--- OUTSIDE RECORDS SUMMARY | 2019-05-29 09:23 | XMS REPORT ---
Author Author Kecia Jha Organization [employer] Address Unknown Phone Unavailable Care Team Providers Care Bottom Ironer Name Role Phone Belinda Jha CP Unavailable Allergies No Known Allergies Problems [...]
--- OUTSIDE RECORDS SUMMARY | 2019-05-29 09:23 | XMS REPORT ---
Author Author Kecia Laguerre Organization [employer] Address Unknown Phone Unavailable Care Team Providers Care Senior Administrative Support Name Role Phone Rena Laguerre CP Unavailable Allergies, Adverse Reactions, Alerts Substance [...] Code Onset Dates Condition Statu s Assessment History of breast cancer V10.3 Act bharath Problem Smoker 305.1 Active Assessment Screening breast examination V76.10 Active Problem Bee sting allergy V15.06 Active Problem Anxiety 300.00 Active Problem History of breast cancer V10.3 Act bharath Problem GERD (gastroesophageal reflux disease) 530.81 Active Problem Asthma 493.90 Active Problem Scoliosis 737.30 Active Problem Allergic rhinitis 477.9 Active Assessment Smoker 305.1 Active Assessment Allergic rhinitis 477.9 Active Assessment Scoliosis 737.30 Active Assessment Asthma 493.90 Active Assessment Anxiety 300.00 Active Assessment GERD (gastroesophageal reflux disease) 530.81 Active Assessment Bee sting allergy V15.06 Active Medications Medication Code System Code Instructions Start Date End Date Status Dosage Partridge [facility] [address]-86 5-325 MG Orally every 6 hrs Oct 242013Nov 30, 2013 Active 1 tablet as needed ibuprofen Unknown 0 Oral Active 1 tab Zofran 4 mg tablet Unknown 0 Active Unkno wn Prevacid dr 30 mg capsule [facility] [address]-84 Active Unknown Flexeril [facility] [address]-76 10 MG Orally Three times a day Active 1 tablet EpiPen [facility] [address]-12 0.3 MG/0.3ML Injection As indicat ed Nov 16, 2013 Active as directed Alprazolam [facility] [address]-82 0.25 MG Orally Three times a day as needed Nov 16, 2013 Active 1 tablet Claritin 10mg tab [facility] [address]-08 A ctive Unknown Ventolin [facility] [address]-21 Active Unknown Hydrocodone-Acetaminophen [facility] [address]-73 10-500 MG Orally e very 6 hrs Active 1 tablet as needed Xanax [facility] [address]-13 1 MG Orally Twice a day A ctive 1 tablet Procedures Procedure Coding System Code Date OFFICE VISIT EST PATIENT LEVEL 3 CPT-4 23938 Nov 16, 2013 Vital Signs Date/Time: Nov 16, 2013 Weight 98.2 lbs Height 63 in Blood Pressure Diastolic 64 mm Hg Blood Pressure Systolic 90 mm Hg Cardiac Monitoring Heart Rate 64 /min Temperature 98.0 F Respiratory Rate 16 /min Results No Known Results Summary Purpose [employer] Submission
--- OUTSIDE RECORDS SUMMARY | 2019-05-29 09:23 | XMS REPORT ---
Author Author Kecia Laguerre Organization [employer] Address Unknown Phone Unavailable Care Team Providers Care Dining Services Manager Name Role Phone Rena Laguerre Unavailable Allergies, Adverse Reactions, Alerts Substance Reaction Event Type Latex Gloves Info Not Available Drug Allergy Wasp Venom Info Not Available Drug Allergy [...] Code Onset Dates Condition Statu s Assessment Scoliosis 737.30 Active Problem Smoker 305.1 Active Assessment Back pain 724.5 Active Assessment Acne 706.1 Active Problem Bee sting allergy V15.06 Active Problem Anxiety 300.00 Active Problem Back pain 724.5 Active Problem GERD (gastroesophageal reflux disease) 530.81 Active Problem Asthma 493.90 Active Problem Scoliosis 737.30 Active Problem Allergic rhinitis 477.9 Active Medications Medication Code System Code Instructions Start Date End Date Status Dosage ibuprofen [facility] [address]-14 Oral Active 1 tab Alprazolam [facility] [address]-41 0.25 MG Orally daily as nee ded for anixety Nov 16, 2013 Active 1 tablet EpiPen [facility] [address]-00 0.3 MG/0.3ML Injection As indicated Nov 16, 2013 Active as directed Prevacid dr 30 mg capsule [facility] [address]-43 Active not defined Clindagel [facility] [address]-92 1 % Externally Twice a day JanApr 02, 2014 Active 1 application to affected ar ea Flexeril [facility] [address]-94 10 MG Orally Three times a day Jan 28 14 Active 1 tablet Ventolin [facility] [address]-69 Active not defin ed Citalopram Hydrobromide [facility] [address]-13 20 MG Orally Once a day Active 1 tablet Claritin [facility] [address]-61 10 MG Orally Once a day Dec 31, 2013 Mar 31, 2014 Active 1 tablet Hydrocodone-Acetaminophen [facility] [address]-30 5-325 MG orally every 4 hours as needed Active 1 tablet as need ed Ibuprofen [facility] [address]-73 800 MG Orally Three times a day Active 1 tablet Procedures Procedure Coding System Code Date OFFICE VISIT EST PATIENT LEVEL 3 CPT-4 72496 Feb 01, 2014 Vital Signs Date/Time: Feb 01, 2014 BMI 17.36 Index Weight 98 lbs Height 63 in Blood Pressure Diastolic 52 mm Hg Blood Pressure Systolic 98 mm Hg Cardiac Monitoring Heart Rate 80 /min Temperature 97.5 F Respiratory Rate 18 /min Results No Known Results Summary Purpose [employer] Submission
--- OUTSIDE RECORDS SUMMARY | 2019-05-29 09:23 | XMS REPORT ---
Author Author Kecia Laguerre Organization [employer] Address Unknown Phone Unavailable Care Team Providers Care Soa Architect Name Role Phone Rena Laguerre CP [...] Instructions Start Date End Date Status Dosage Ventolin [facility] [address]-49 Inactive not defi kathleen Ventolin HFA [facility] [address]-43 108 (90 Base) MCG/ACT Inhal ation every 4 hrs Feb 02, 2014 Active 2 puffs as needed Citalopram Hydrobromide [facility] [address]-90 20 MG Orally Once a day Active 1 tablet Hydrocodone-Acetaminophen [facility] [address]-65 5-325 MG orally every 4 hours as needed Active 1 tablet as need ed Clindagel [facility] [address]-00 1 % Externally Twice a day JanApr 02, 2014 Active 1 application to affected ar ea Claritin [facility] [address]-29 10 MG Orally Once a day Dec 31, 2013 Mar 31, 2014 Active 1 tablet EpiPen [facility] [address]-33 0.3 MG/0.3ML Injection As indicated Nov 16, 2013 Active as directed Prevacid dr 30 mg capsule [facility] [address]-70 Active not defined Ibuprofen [facility] [address]-62 800 MG Orally Three times a day Active 1 tablet Flexeril [facility] [address]-93 10 MG Orally Three times a day Jan 28 Active 1 tablet Results No Known Results Summary Purpose [employer] Submission
--- OUTSIDE RECORDS SUMMARY | 2019-05-29 09:23 | XMS REPORT | Summary of Care ---
Author Author Kecai Ambriz D.O. Organization Unknown Address [address] [place], [place] [id number] Phone Unavailable Care Team Providers Care Repulping Supervisor Name Role Phone Nidia Ambriz D.O. Unavailable [...]
--- OUTSIDE RECORDS SUMMARY | 2019-05-29 09:23 | XMS REPORT ---
Author Author JYOTI MAN Organization Unknown Address Unknown Phone Unavailable Care Team Providers Care Field Radio Technician Name Role Phone [facility] PP Unavailable Reason For Visit Chief Complaint JOINT PAIN-PELVIS,HIP PAIN,JOINT PAIN-PELVIS,DM2/NOS UNCOMP NSU Social History Functional Status Vital Signs Results Problems Encounter Diagnosis No relevant problems exist. Encounters Encounter Diagnosis No relevant problems exist. Plan of Care Procedures No relevant procedures performed. Immunizations No immunizations administered or ordered. Hospital Course Hospital Discharge Instructions Allergies, Adverse Reactions, Alerts * latex causes Unknown. * hornet (as Animals allergen) causes Anaphylaxis. * wasp venom protein causes Anaphylaxis. * Wasp Venom causes Anaphylaxis. * bee venom (honey bee) causes Anaphylaxis. * Bee Sting (as Environmental allergen) causes Anaphylaxis. * Bee Pollen causes Anaphylaxis. * Cinnamon causes Anaphylaxis. * Bleach (as Miscellaneous allergen) causes Hives. Onset unknown. * Penicillins causes Hives. Onset unknown. * clonidine causes Rash. Onset unknown. * Iodinated Contrast Media - IV Dye causes Hives and Swelling/Edema. * Latex Allergy has not been assessed. * IV Contrast Allergy has not been assessed. Medication Medication reconciliation has not been performed.
--- OUTSIDE RECORDS SUMMARY | 2019-05-29 09:24 | XMS REPORT | Continuity of Care Document ---
Author Author [facility] Organization [facility] Address Unknown Phone Unavailable Care Team Providers Care Population Health Coach Name Role Phone NO, LOCAL PHYSICIAN PP Unavailable Insurance Providers Payer Name Policy Number Subscriber Name Relationship [facility] [employer] [id number] Kecia Swift 01 Self / Same As Patient Advance Directives Directive Response Recor ded Date Advance Directives N 8:21pm Problems No Known Problems or Medical conditions. Social History History Response Recorde d Date/Time Alcohol Use Denies Use 0 11/11/12 2:23pm Recreational Drug Use N 11/11/12 2:23pm Recent Foreign Travel N 11/11/12 2:23pm Recent Infectious Disease Exposure N 11/11/12 2:23pm Sexually Transmitted Disease N 11/11/12 2:23pm HIV/AIDS N 11/11/12 2:23 pm Allergies, Adverse Reactions, Alerts Allergen Type Severity Reaction Last Updated Penicillins Allergy 11/09/12 iodine Allergy 11/09/12 Codeine Allergy 11/09/12 Hydrocodone Allergy 11/09/12 clonidine Allergy 11/09/12 Medications Medication Dose Units Route Sig Qty Days Doxycycline Monohydrate 100 Mg PO BID 20 Methylergonovine Maleate (Methergine Tab) 1 Each PO TID 15 Ibuprofen (Motrin) 600 Mg PO Q6H 40 Promethazine Hcl (Phenergan) 25 Mg PO Lansoprazole 15 Mg PO Loratadine 10 Mg PO Ondansetron HCl (Zofran) 1 Tab PO BID 20 Cephalexin Monohydrate (Cephalexin) 250 Mg PO Response Recorded Date/Time Status not known Unknown Results Test Date Result Interp. Ref. Range Anisocytosis November 11, 2012 2:20pm SLIGHT - BUN/Creatinine Ratio November 09, 2012 9:05p m 12 - Band Neutrophils November 11, 2012 2:20pm 0 % - Basophils # (Auto) November 11, 2012 2:20pm 0.0 10^3/uL N 0.0-0.1 Basophils % (Manual) November 11, 2012 2:20p m 0 % - Basophils (%) (Auto) November 11, 2012 2:20p m 0 % N 0-10 Blood Urea Nitrogen November 09, 2012 9:05pm 7 MG/DL N 7-18 Calcium Level November 09, 2012 9:05pm 8.7 MG/DL N 8.5-10.1 Carbon Dioxide Level November 09, 2012 9:05p m 22 MMOL/L N 21-32 Chloride Level November 09, 2012 9:05pm 103 MMOL/L N 101-110 Creatinine November 09, 2012 9:05pm 0.6 MG/DL N 0.6-1.3 Crenated Cell November 11, 2012 2:20pm SLIGHT - Elliptocytes November 11, 2012 2:20pm SLIGHT - Eosinophils # (Auto) November 11, 2012 2:20p m 0.1 10^3/uL N 0.0-0.3 Eosinophils % (Manual) November 11 13 2:20pm 0 % - Eosinophils (%) (Auto) November 11 13 2:20pm 1 % N 0-10 Glucose Level November 09, 2012 9:05pm 79 MG/DL N 74-106 Hematocrit November 11, 2012 2:20pm 30 % L 35-52 Hemoglobin November 11, 2012 2:20pm 10.3 G/DL L 11.5-16.0 Human Chorionic Gonadotropin, Quant November 09, 2012 9:05pm 91490 MIU/ML H -6 Lymphocytes # (Auto) November 11, 2012 2:20p m 0.8 X 10^3 L 1.0-4.0 Lymphocytes % (Manual) November 11 13 2:20pm 9 % - Lymphocytes (%) (Auto) November 11 13 2:20pm 7 % L 12-44 Mean Corpuscular Hemoglobin October 242012 2:20pm 29 PG N 25-34 Mean Corpuscular Hemoglobin Concent November 11, 2012 2:20pm 34 G/DL N 32-36 Mean Corpuscular Volume November 11 013 2:20pm 85 FL N 80-99 Mean Platelet Volume November 11, 2012 2:20p m 10.8 FL H 7.4-10.4 Monocytes # (Auto) November 11, 2012 2:20pm 0.8 X 10^3 N 0.0-1.0 Monocytes % (Manual) November 11, 2012 2:20p m 7 % - Monocytes (%) (Auto) November 11, 2012 2:20p m 7 % N 0-12 Neutrophils # (Auto) November 11, 2012 2:20p m 9.6 X 10^3 H 1.8-7.8 Neutrophils % (Manual) November 11 13 2:20pm 84 % - Neutrophils (%) (Auto) November 11 2:20pm 85 % H 42-75 Platelet Count November 11, 2012 2:20pm 161 10^3/uL N 130-400 Potassium Level November 09, 2012 9:05pm 3.7 MMOL/L N 3.6-5.0 Red Blood Count November 11, 2012 2:20pm 3.53 10^6/uL L 4.35-5.85 Red Cell Distribution Width October 242012 2:20pm 14.1 % N 10.0-14.5 Sodium Level November 09, 2012 9:05pm 134 MMOL/L L 135-145 Ur Tricyclic Antidepressants Screen November 09, 2012 9:21pm NEGATIVE - Urine Amphetamines Screen November 09, 2012 9:21pm NEGATIVE - Urine Bacteria November 09, 2012 9:21pm TRACE /HPF - Urine Barbiturates Screen November 09, 2012 9:21pm NEGATIVE - Urine Benzodiazepines Screen November 09, 2012 9:21pm NEGATIVE - Urine Bilirubin November 09, 2012 9:21pm 1+ H - Urine Calcium Oxalate Crystals Augus 2012 9:21pm MODERATE /LPF H - Urine Casts November 09, 2012 9:21pm NONE /LPF - Urine Clarity November 09, 2012 9:21pm SLIGHTLY CLOUDY - Urine Cocaine Screen November 09, 2012 9:21p m NEGATIVE - Urine Color November 09, 2012 9:21pm YELLOW - Urine Crystals November 09, 2012 9:21pm PRESENT /LPF H - Urine Culture Indicated November 09 013 9:21pm NO - Urine Glucose (UA) November 09, 2012 9:21pm NEGATIVE - Urine Ketones November 09, 2012 9:21pm 1+ H - Urine Leukocyte Esterase November 09, 2012 9:21pm 1+ H - Urine Methamphetamines Screen November 09, 2012 9:21pm NEGATIVE - Urine Mucus November 09, 2012 9:21pm LARGE /LPF H - Urine Nitrite November 09, 2012 9:21pm NEGATIVE - Urine Opiates Screen November 09, 2012 9:21p m NEGATIVE - Urine Phencyclidine Screen October 9:21pm NEGATIVE - Urine Propoxyphene Screen November 09, 2012 9:21pm NEGATIVE - Urine Protein November 09, 2012 9:21pm 2+ H - Urine RBC November 09, 2012 9:21pm NONE /HPF - Urine Renal Epithelial Cells November 09, 2012 9:21pm NONE /HPF - Urine Specific [place] November 09 9:21pm 1.020 - Urine Squamous Epithelial Cells Augu 2012 9:21pm >50 /HPF H - Urine Urobilinogen November 09, 2012 9:21pm 8 MG/DL H - Urine WBC November 09, 2012 9:21pm RARE /HPF - Urine pH November 09, 2012 9:21pm 6.5 - White Blood Count November 11, 2012 2:20pm 11.2 10^3/uL H 4.3-11.0 Estimat Glomerular Filtration Rate A ugust 2012 9:05pm > 60 - Urine Oxycodone Screen November 09 13 9:21pm NEGATIVE - Urine Methadone Screen November 09 13 9:21pm NEGATIVE - Urine Cannabinoids Screen November 09, 2012 9:21pm NEGATIVE - Urine Buprenorphine November 09, 2012 9:21pm NEGATIVE - Urine RBC (Auto) November 09, 2012 9:21pm NEGATIVE - Encounters Encounter Location Date/ Time Departed Emergency Room [facility] 11/09/12 8:19pm
--- OUTSIDE RECORDS SUMMARY | 2019-05-29 09:24 | XMS REPORT ---
Author Author JYOTI MAN Organization Unknown Address Unknown Phone Unavailable Care Team Providers Care Machine Technician Name Role Phone [facility] PP Unavailable Reason For Visit Chief Complaint FALL- HEAD TRAUMA Social History Functional Status Vital Signs Results [...]
--- OUTSIDE RECORDS SUMMARY | 2019-05-29 09:24 | XMS REPORT ---
Author Author Kecia Laguerre Organization [employer] Address Unknown Phone Unavailable Care Team Providers Care Bridge Attacher Name Role Phone Rena Laguerre CP Unavailable [...]
--- OUTSIDE RECORDS SUMMARY | 2019-05-29 09:24 | XMS REPORT | CCD ---
Author JYOTI Pinto Organization Unknown Address [address] [facility] [address] [place] [id number] Care Team Providers Care Wide Piece Goods Inspector Name Role Phone TIERNEY COOK MD Attphys C., JOSÉ MIGUEL NASST S., ASHLEY NASST S., JOSÉ MIGUEL NASST W., ANDRA NASST Vital Signs Vital Sign Value Unit Weight Measured 107 lbs Height 61 in BMI (Body Mass Index) 20.22 kg/m^2 BSA (Body Surface Area) 1.45 m^2 BP Systolic 107 mmHg BP Diastolic 58 mmHg BP Systolic 93 mmHg BP Diastolic 43 mmHg BP Systolic 76 mmHg BP Diastolic 40 mmHg BP Systolic 91 mmHg BP Diastolic 50 mmHg BP Systolic 88 mmHg BP Diastolic 48 mmHg BP Systolic 93 mmHg BP Diastolic 56 mmHg BP Systolic 93 mmHg BP Diastolic 56 mmHg BP Systolic 89 mmHg BP Diastolic 51 mmHg BP Systolic 89 mmHg BP Diastolic 57 mmHg BP Systolic 84 mmHg BP Diastolic 42 mmHg BP Systolic 87 mmHg BP Diastolic 51 mmHg BP Systolic 90 mmHg BP Diastolic 60 mmHg BP Systolic 75 mmHg BP Diastolic 34 mmHg BP Systolic 89 mmHg BP Diastolic 40 mmHg BP Systolic 91 mmHg BP Diastolic 45 mmHg Respiratory Rate 16 bpm Respiratory Rate 21 bpm Respiratory Rate 16 bpm Respiratory Rate 18 bpm Respiratory Rate 18 bpm Respiratory Rate 18 bpm Respiratory Rate 16 bpm Respiratory Rate 16 bpm Respiratory Rate 16 bpm Respiratory Rate 16 bpm Respiratory Rate 16 bpm Respiratory Rate 16 bpm Respiratory Rate 16 bpm Heart Rate 66 bpm Heart Rate 72 bpm Heart Rate 100 bpm Heart Rate 77 bpm Heart Rate 73 bpm Heart Rate 82 bpm Heart Rate 76 bpm Heart Rate 70 bpm Heart Rate 68 bpm Heart Rate 58 bpm Heart Rate 55 bpm Heart Rate 57 bpm Heart Rate 62 bpm O2 % BldC Oximetry 99 % O2 % BldC Oximetry 99 % O2 % BldC Oximetry 100 % O2 % BldC Oximetry 99 % O2 % BldC Oximetry 99 % O2 % BldC Oximetry 99 % O2 % BldC Oximetry 99 % O2 % BldC Oximetry 99 % O2 % BldC Oximetry 99 % O2 % BldC Oximetry 100 % O2 % BldC Oximetry 97 % O2 % BldC Oximetry 100 % O2 % BldC Oximetry 100 % Body Temperature 96.9 degrees Body Temperature 98.2 degrees Body Temperature 98.2 degrees Body Temperature 98.2 degrees Body Temperature 98.3 degrees Body Temperature 98.4 degrees Body Temperature 98.8 degrees Body Temperature 98.5 degrees Body Temperature 98 degrees Body Temperature 97.4 degrees Body Temperature 98.5 degrees Body Temperature 98.7 degrees Body Temperature 98.8 degrees Allergies Allergy Code Allergy Type Reaction Status CLONIDINE 0 Drug allergy (disorder) Active PCN (penicillin) 0 Drug allergy (disorder) Active FLU VACCINE 0 Drug allergy (disorder) Active CODEINE 0 Drug allergy (disorder) Active BLEACH {Clinical monitoring unavailable} 0 Allergy to substance (disorder) Active CINNAMON 0 Food allergy (disorder) Active IODINE-CONTAINING 0 Drug allergy (disorder) Active Procedures Unknown. History of Immunizations Unknown. 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 15670 Active VAGINAL DELIVERY 650 Activ e Results HEMOGRAM Test Name Code Test Result Test Units Melba t Date/Time WBC 44425-0 7.4000 TH/CMM 07/15/2013 07: 05 RBC 789-8 3.8500 ML/CMM 07/15/2013 07:0 5 HGB 718-7 9.8000 G/DL 07/15/2013 07:0 5 HCT 4544-3 30.6000 % 07/15/2013 07: 05 MCV 80.0000 FL 07/15/2013 07: 05 MCH 25.5000 PG 07/15/2013 07: 05 MCHC 32.0000 G/DL 07/15/2013 07: 05 RDW SD 64.0000 FL 07/15/2013 07: 05 RDW CV 22.3000 % 07/15/2013 07: 05 MPV 10.9000 FL 07/15/2013 07: 05 PLT 777-3 120.0000 TH/CMM 07/15/2013 07 :05 NRBC# 0.0000 TH/CMM 07/15/2013 07:0 5 NRBC% 0.0000 /100WBC 07/15/2013 07: 05 BASIC METABOLIC PANEL Test Name Code Test Result Test Units Melba t Date/Time GLUCOSE 2345-7 92.0000 MG/DL 07/15/2013 07 :05 SODIUM 2951-2 140.0000 MEQ/L 07/15/2013 07 :05 POTASSIUM 2823-3 3.8000 MEQ/L 07/15/2013 0 7:05 CHLORIDE 2075-0 111.0000 MEQ/L 07/15/2013 07:05 CO2 2028-9 21.0000 MEQ/L 07/15/2013 07: 05 BUN 3094-0 9.0000 MG/DL 07/15/2013 07:0 5 CREATININE 2160-0 0.7000 MG/DL 07/15/2013 07:05 CALCIUM 01171-2 8.4000 MG/DL 07/15/2013 07 :05 AGE 32.0000 yrs 07/15/2013 07: 05 GFR NonAA 98.0000 07/15/2013 07:05 GFR AA 119.0000 07/15/2013 07 :05 eGFR 60.0000 mL/min/1.7 07/15/2013 07:05 eGFR AA* 60.0000 mL/min/1.7 07/16/19 14 07:05 TEST URINE Test Name Code Test Result Test Units Melba t Date/Time TEST UR 2106-3 NEGATIVE N/A 07:25 Medications Medication Code Dose Units Frequency Rou te Modification Start Date/Time Stop Date/Time LORATADINE [CLARITIN] TABLET: 10 MG 260231 10 MG DAILY PO 07/14/2013 09:04 PANTOPRAZOLE [PROTONIX] TABLET : 20 MG 200456 20 MG DAILY PO 07/14/2013 09:04 LORAZEPAM (ATIVAN)TAB:0.5MG 749479 0.5 MG PRN Q 8 HRS PO 07/14/2013 09:04 ALBUTEROL [VENTOLIN] HFA INHALER (MDI) 208880 1 EA PRN INHALE 07/14/2013 09:04 MORPHINE INJ: 2MG/ML 1 ML SYRINGE 957272 4 MG PRN IVP 07/14/2013 09:06 KETOROLAC (TORADOL) VIAL: 30 MG/ML 1 ML 274913 30 MG PRN IVP 07/14/2013 09:06 4 09:06 DIPHENHYDRAMINE (BENADRYL) CAP : 25 MG 0895492 25 MG PRN PO 07/14/2013 09:06 DIPHENHYDRAMINE (BENADRYL)INJ : 50MG/ML 8592840 25 MG PRN SIVP 07/14/2013 09:06 ONDANSETRON [ZOFRAN] INJ 4 MG/2 ML VIAL 372539 4 MG PRN SIVP 07/14/2013 09:06 PROMETHAZINE [PHENERGAN] INJ 25 MG/ML 319439 6.25 MG PRN IV 07/14/2013 09:06 PERCOCET 5/325 MG TABLET (ROXICET) 3327084 1 EA PRN PO 07/14/2013 09:06 FLUACCINE (FLUVIRIN) 0.5ML DOSE [id number] 0.5 ML X1 IM 07/14/2013 09:06 4 09:06 PNEUMOCOCCAL VACCINE(PNU-IMUNE/PNEUMOVAX 656468 0.5 ML PRN IM 07/14/2013 09:06 IBUPROFEN (MOTRIN) TAB:800 MG 964494 800 MG PRN PO 07/14/2013 09:06 DOCUSATE SODIUM 100 MG [COLACE] CAPSULE 9623704 100 MG PRN PO 07/14/2013 09:06 NICOTINE (NICODERM) PATCH: 14MG/24HR [id number] 14 MG DAILY TOPICAL 07/14/2013 15:06 LR 1000ML IV [PREDEFINED] 668427 CO NT IV IV 07/14/2013 16:23 ~~ LR 1000 ML (7953) IV BAG 287188 5668 ML Claritin 10MG Oral Tablet 544371 10 MILLIGRAM S DAILY ORAL 07/15/2013 08:06 Prevacid 30MG Oral Capsule, Delayed Release 791300 30 MILLIGRAMS DAILY ORAL 07/15/2013 08:06 Ventolin HFA 0.09MG/Actuation Inhalation Aerosol Powder 863501 1 EACH NEEDED INHALATION 07/15/2013 08: 06 Xanax 0.5MG Oral Tablet 977292 0.5 MILLIGRAMS DAILY ORAL 07/15/2013 08:06 Oxycodone And Acetaminophen 325MG-5MG Oral Tablet 5922769 1 EACH NEEDED EVERY 8 HR BY MOUTH FOR PAIN 07/15 08:06 Ibuprofen 800MG Oral Tablet 966831 800 MILLIGR AMS NEEDED EVERY 8 HR BY MOUTH FOR PAIN 07/15/2013 08:06 Docusate Sodium 100MG Oral Capsule 5791711 100 MILLIGRAMS NEEDED EVERY 12 H BY MOUTH for constipation 07/15/2013 08:06 Ferrous Sulfate 325MG Oral Tablet, Enteric Coated 925431 1 TABLET DAILY BY MOUTH 07/15/2013 08:16 Ventolin HFA 0.09MG/Actuation Inhalation Aerosol Powder 486008 1 EACH NEEDED INHALATION Claritin 10MG Oral Tablet 116292 10 MILLIGRAM S DAILY ORAL Claritin 10MG Oral Tablet 250293 10 MILLIGRAM S DAILY ORAL Prevacid 30MG Oral Capsule, Delayed Release 913395 30 MILLIGRAMS DAILY ORAL Ventolin HFA 0.09MG/Actuation Inhalation Aerosol Powder 997377 1 EACH NEEDED INHALATION Xanax 0.5MG Oral Tablet 201269 0.5 MILLIGRAMS DAILY ORAL Ibuprofen 800MG Oral Tablet 806522 800 MILLIGR AMS NEEDED ORAL Ibuprofen 800MG Oral Tablet 578647 800 MILLIGR AMS NEEDED ORAL Xanax 0.5MG Oral Tablet 141689 0.5 MILLIGRAMS DAILY ORAL Ventolin HFA 0.09MG/Actuation Inhalation Aerosol Powder 519122 1 EACH NEEDED INHALATION Prevacid 30MG Oral Capsule, Delayed Release 201144 30 MILLIGRAMS DAILY ORAL Claritin 10MG Oral Tablet 719672 10 MILLIGRAM S DAILY ORAL Medications Administered Medication Dose Units Frequency Route D ate/Time of Last Dose LORATADINE [CLARITIN] TABLET: 10 MG 10 MG DAILY PO 07/15/2013 07:54 PANTOPRAZOLE [PROTONIX] TABLET : 20 MG 20 MG DAILY PO 07/15/2013 07:54 MORPHINE INJ: 2MG/ML 1 ML SYRINGE 4 MG PRN IVP 07/14/2013 15:24 KETOROLAC (TORADOL) VIAL: 30 MG/ML 1 ML 30 MG PRN IVP 07/14/2013 20:26 ONDANSETRON [ZOFRAN] INJ 4 MG/2 ML VIAL 4 MG PRN SIVP 07/14/2013 23:39 PERCOCET 5/325 MG TABLET (ROXICET) 1 TAB PRN PO 07/14/2013 20:26 LR 1000ML IV [PREDEFINED] X1 IV 07/14/2013 15:23 NICOTINE (NICODERM) PATCH: 14MG/24HR 14 MG DAILY TOPICAL 07/15/2013 07:54 LR 1000ML IV [PREDEFINED] CONT IV IV 07/15/2013 02:51 Encounters Encounter Diagnosis Diagnosis Code Start Date MODERATE DYSPLASIA OF CERVIX 30263 07/14 Social History Smoking Status Code Start Date End Date Current every day smoker 329559055 Patient Decision Aids Unknown. Instructions You were admitted to [facility] on 07/14/2013 with a principle diagnosis of MODERATE DYSPLASIA OF CERVIX. You had the following procedures done: VAGINAL HYSTERECTOMY You were discharged from [facility] on 07/15/2013. Should you have any questions prior to discharge, please contact a member of your healthcare team. If you have left the hospital and have any questions, please contact your primary care physician. HOME DIET: Regular. CONDITION AT DISMISSAL Stable. HOME MEDICATION INSTRUCTIONS: Take only the medications listed above.. Verbalizes understanding of instructions. HOME MEDS RETURNED TO PATIENT: N/A. ACTIVITY INSTRUCTIONS(list limitations): no liftinf anything greater than 15lbs for 6 weeks, no driving for 1 week or while taking narcotics RETURN TO WORK/SCHOOL: N/A. WEIGHT MONITORING DISCUSSED (CHF PT) No. SPECIAL INSTRUCTIONS: nothing per vagina for 6weeks, you make shower, call with any incisional redness, drainage, or swelling RELEVANT CONTACT INFORMATION: Physician: [phone] SCRIPTS WRITTEN BY DOCTOR GIVEN TO PATIENT? Yes, for percocet, ibuprofen, docusate sodium, and iron Education performed on new medications.. PAIN MANAGEMENT: Non drug control methods, When to contact physician. Verbalizes understanding of instructions. FOLLOW UP CARE - SEE YOUR PHYSICIAN: follow up - SaturdayAugust 26 at 3:30pm with Dr. Cook FOLLOW UP APPOINTMENT: appointment has been made for you PRIMARY CARE PHYSICIAN OR PRACTITIONER: Dr. Tierney Cook, . CONTACT YOUR PHYSICIAN IF YOU EXPERIENCE ANY: pain, bleeding, numbness in your hands/feet, fever, Shortness of Breath. Nausea/Vomiting, Redness or soreness in calf area. Odor or drainage from incision, Difficulty urinating. Swelling of extremities, Difficulty swallowing. PERSONAL ITEMS RETURNED: Yes. INSTRUCTED TO BRING THESE INSTR TO NEXT OFFICE VISIT Yes. INSTRUCTIONS GIVEN AND DISCHARGE TO: Patient. VOICES UNDERSTANDING OF INSTRUCTIONS: Yes. INSTRUCTIONS GIVEN BY (TYPE IN NAME AND DATE) LORI Crowley SMOKING CESSATION: Smoking and second hand smoke is harmful, to your health.. Smoking has been linked to cancer, cardiac disease, COPD, and asthma.. For more information you can call:, 3-559-GFS-[employer], or 6-096-DGRC-[place].. A pamphlet on smoking was given to you, at admission.. 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 Plan of Care Unknown. Referral/Transition of Care Unknown.
--- OUTSIDE RECORDS SUMMARY | 2019-05-29 09:24 | XMS REPORT | CCD ---
Author Author JYOTI JASSO Organization Unknown Address [address] [facility] [address] [place], [place] [id number] Care Team Providers Care Legal Secretary Receptionist Name Role Phone VAZQUEZ, SYDNEY DO Attphys VAZQUEZ, SYDNEY DO Prisurg Vital Signs Unknown. Allergies Allergy Code Allergy Type Reaction Status CLONIDINE 0 Drug allergy (disorder) Active PCN (penicillin) 0 Drug allergy (disorder) Active FLU VACCINE 0 Drug allergy (disorder) Active CODEINE 0 Drug allergy (disorder) Active HYDROCODONE 0 Drug allergy (disorder) Active IODINE-CONTAINING 0 Drug allergy (disorder) Active Procedures Unknown. History of Immunizations Unknown. 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 Medications Administered Unknown. Encounters Encounter Diagnosis Diagnosis Code Start Date NONINFLAM DIS VAGINA NEC 6238 4 Social History Smoking Status Code Start Date End Date Current every day smoker [id number] Patient Decision Aids Unknown. Instructions You were admitted to [facility] on 05/23/2013 with a principle diagnosis of NONINFLAM DIS VAGINA NEC. You were discharged from [facility] on 05/23/2013. Should you have any questions prior to discharge, please contact a member of your healthcare team. If you have left the hospital and have any questions, please contact your primary care physician. Chief Complaint and Reason For Visit Chief Complaint Date of Onset VAGINAL BLEEDING Function Status Unknown. Referral/Transition of Care Unknown.
--- OUTSIDE RECORDS SUMMARY | 2019-05-29 09:24 | XMS REPORT ---
Author Author JYOTI MAN Organization Unknown Address Unknown Phone Unavailable Care Team Providers Care Ripshear Operator Name Role Phone [facility] PP Unavailable Reason For Visit Chief Complaint HEAD INJURY Social History Functional Status Vital Signs Results [...]
--- OUTSIDE RECORDS SUMMARY | 2019-05-29 09:24 | XMS REPORT ---
Author JYOTI Mirza Organization Unknown Address Unknown Phone Unavailable Care Team Providers Care Technology Training Associate Name Role Phone UNASSIGNED DOCTORMD DOCTOR PP [phone] Reason For Visit Chief Complaint 793.19 ABNORMAL CHEST XRAY,CT CHEST WITH CONTRAST Social History Functional Status Vital Signs Results Problems Encounter Diagnosis No relevant problems exist. Encounters Encounter Diagnosis No relevant problems exist. Plan of Care Procedures No relevant procedures performed. Immunizations No immunizations administered or ordered. Hospital Course Hospital Discharge Instructions Allergies, Adverse Reactions, Alerts * Iodinated Contrast Media - IV Dye causes Hives and Swelling/Edema. * No Latex Allergy. Medication Medication reconciliation has not been performed.
--- OUTSIDE RECORDS SUMMARY | 2019-05-29 09:24 | XMS REPORT ---
Author Author JYOTI MAN Organization Unknown Address Unknown Phone Unavailable Care Team Providers Care Electrical Continuity Tester Name Role Phone [facility] PP Unavailable Reason For Visit Chief Complaint 724.5,BACK PAIN Social History Functional Status Vital Signs [...]
--- OUTSIDE RECORDS SUMMARY | 2019-05-29 09:24 | XMS REPORT ---
Author JYOTI Mirza Organization Unknown Address Unknown Phone Unavailable Care Team Providers Care Quick Mixer Operator Name Role Phone UNASSIGNED DOCTOR , DOCTOR PP Reason For Visit Chief Complaint ABD PAIN Social History Functional Status Vital Signs Results Chemistry from 12/14/2013 2:45 PMSODIUM 137 MMOL/L (136-145 MMOL/L) POTASSIUM 3.7 MMOL/L (3.5-5.1 MMOL/L) CHLORIDE 106 MMOL/L (98-107 MMOL/L) TCO2 25.8 MMOL/L (21.0-32.0 MMOL/L) ANION GAP 5.2 MMOL/L L (8.0-16.0 MMOL/L) BUN 12 MG/DL (7-18 MG/DL) CREATININE 0.58 MG/DL (0.43-0.83 MG/DL) BUN/CREATININE RATIO 20.7 H (9.1-17.0 ) GLUCOSE 81 MG/DL (65-99 MG/DL) GFR EST NON AFR [place] >90 ML/MIN GFRA EST AFR AMER >90 ML/MIN CALCIUM 8.9 MG/DL (8.5-10.1 MG/DL) TEST NEGATIVE (NEGATIVE ) Hematology from 12/14/2013 2:45 PMWBC 16.8 X10e3/UL H (3.6-11.2 X10e3/UL) RBC 4.74 X10e6/UL (3.63-4.92 X10e6/UL) HEMOGLOBIN 14.2 G/DL (11.0-14.3 G/DL) HEMATOCRIT 41.4 % (31.2-41.9 %) MCV 87.2 FL (79.0-98.0 FL) MCH 29.9 PG (27.0-33.0 PG) MCHC 34.2 G/DL (32.0-36.0 G/DL) RDW 13.4 % (12.3-17.0 %) RDWSD 40.7 (37.1-47.8 ) PLATELET 159 X10e3/UL (159-386 X10e3/UL) MPV 8.3 FL (7.4-10.4 FL) AUTOMATED DIFF PERFORMED SEGS 89.0 % LYMPHOCYTES 5.9 % MONOCYTES 4.1 % EOSINOPHILS 0.7 % BASOPHILS 0.3 % ABSOLUTE NEUTROPHILS 15.0 X10e3/UL H (1.8-7.8 X10e3/UL) ABSOLUTE LYMPHOCYTES 1.0 X10e3/UL (1.0-3.0 X10e3/UL) ABSOLUTE MONOCYTES 0.7 X10e3/UL (0.3-1.0 X10e3/UL) ABSOLUTE EOSINOPHILS 0.1 X10e3/UL (0.0-0.5 X10e3/UL) ABSOLUTE BASOPHILS 0.0 X10e3/UL (0.0-0.2 X10e3/UL) Urinalysis from 12/14/2013 3:50 PMURINE COLOR YELLOW (STRAW/YELL/DK YELL ) URINE APPEARANCE CLEAR (CLEAR ) URINE PH 7.0 (5.0-8.0 ) URINE SPECIFIC GRAVITY 1.020 (<=1.005->=1.030 ) URINE GLUCOSE NEGATIVE MG/DL (NEGATIVE MG/DL) URINE BILIRUBIN NEGATIVE (NEGATIVE ) URINE KETONES NEGATIVE MG/DL (NEGATIVE MG/DL) URINE BLOOD NEGATIVE (NEGATIVE ) URINE PROTEIN NEGATIVE MG/DL (NEGATIVE MG/DL) URINE UROBILINOGEN 0.2 EU/DL (0.2-1.0 EU/DL) URINE NITRITES NEGATIVE (NEGATIVE ) *URINE LEUKOCYTES NEGATIVE (NEGATIVE ) CT Scan from 12/14/2013 3:43 PMCT ABD/PELVIS W/O CONTRAST (Preliminary Result) DATE OF EXAM: Dec 14 2013 4:10PM Proc: CT 0231 - CT ABD/PELVIS W/O CONTRAST CPT Code(s): 57647-; ; ; INDICATION / CLINICAL HISTORY: Abdominal Pain COMPARISON: None. FINDINGS: The visualized lung bases are clear with the exception of a 3 mm nodule in the right lung base. This is of uncertain etiology. If the patient has risk factors for malignancy, a baseline chest CT and six month follow-up would be recommended. The unenhanced liver, spleen, pancreas and gallbladder are normal. The adrenals are normal. There is no urolithiasis. There is no hydronephrosis. The urinary bladder is decompressed and not well evaluated. The abdominal aorta is normal in caliber. There is no periaortic lymphadenopathy. The unopacified and unenhanced bowel is grossly unremarkable with the exception of mild constipation. What is believed to represent the appendix appears normal. There is a small amount of free fluid in the pelvis, some of this appears of slightly increased attenuation. The possibility of hemorrhage must be considered. A pelvic ultrasound may be useful for further evaluation. IMPRESSION: 1. Mild constipation. 2. Free fluid in the pelvis, which is more than that typically seen as physiologic. Additionally, there is some increased attenuation within this fluid raising the possibility of blood products. Further evaluation with pelvic ultrasound is recommended. Problems Encounter Diagnosis No relevant problems exist. [...]
--- OUTSIDE RECORDS SUMMARY | 2019-05-29 09:24 | XMS REPORT ---
Author JYOTI Mirza Organization Unknown Address Unknown Phone Unavailable Care Team Providers Care Lock Installer Name Role Phone UNASSIGNED DOCTOR, DOCTOR PP Reason For Visit Chief Complaint FEVER Social History Functional Status Vital Signs Results Chemistry from 10/30/2013 4:38 PMSODIUM 144 MMOL/L (136-145 MMOL/L) POTASSIUM 3.7 MMOL/L (3.5-5.1 MMOL/L) CHLORIDE 111 MMOL/L H (98-107 MMOL/L) TCO2 28.1 MMOL/L (21.0-32.0 MMOL/L) ANION GAP 4.9 MMOL/L L (8.0-16.0 MMOL/L) BUN 15 MG/DL (7-18 MG/DL) CREATININE 0.61 MG/DL (0.43-0.83 MG/DL) BUN/CREATININE RATIO 24.6 H (9.1-17.0 ) GLUCOSE 87 MG/DL (65-99 MG/DL) GFR EST NON AFR [place] >90 ML/MIN GFRA EST AFR AMER >90 ML/MIN CALCIUM 8.6 MG/DL (8.5-10.1 MG/DL) BILIRUBIN TOTAL 0.14 MG/DL L (0.20-1.00 MG/DL) TOTAL PROTEIN 6.1 GM/DL L (6.4-8.2 GM/DL) ALBUMIN 3.8 GM/DL (3.4-5.0 GM/DL) GLOBULIN 2.3 GM/DL (2.3-3.5 GM/DL) A/G RATIO 1.7 MG/DL (1.5-2.2 MG/DL) ALK PHOS 50 U/L (46-116 U/L) ALT (SGPT) 15 U/L (12-78 U/L) AST (SGOT) 12 U/L L (15-37 U/L) Hematology from 10/30/2013 4:38 PMWBC 5.4 X10e3/UL (3.6-11.2 X10e3/UL) RBC 4.05 X10e6/UL (3.63-4.92 X10e6/UL) HEMOGLOBIN 11.9 G/DL (11.0-14.3 G/DL) HEMATOCRIT 35.3 % (31.2-41.9 %) MCV 87.2 FL (79.0-98.0 FL) MCH 29.4 PG (27.0-33.0 PG) MCHC 33.7 G/DL (32.0-36.0 G/DL) RDW 15.7 % (12.3-17.0 %) RDWSD 47.7 (37.1-47.8 ) PLATELET 142 X10e3/UL L (159-386 X10e3/UL) MPV 9.0 FL (7.4-10.4 FL) AUTOMATED DIFF PERFORMED SEGS 64.9 % LYMPHOCYTES 25.6 % MONOCYTES 6.5 % EOSINOPHILS 2.1 % BASOPHILS 0.9 % ABSOLUTE NEUTROPHILS 3.5 X10e3/UL (1.8-7.8 X10e3/UL) ABSOLUTE LYMPHOCYTES 1.4 X10e3/UL (1.0-3.0 X10e3/UL) ABSOLUTE MONOCYTES 0.4 X10e3/UL (0.3-1.0 X10e3/UL) ABSOLUTE EOSINOPHILS 0.1 X10e3/UL (0.0-0.5 X10e3/UL) ABSOLUTE BASOPHILS 0.0 X10e3/UL (0.0-0.2 X10e3/UL) Urinalysis from 10/30/2013 4:29 PMURINE COLOR YELLOW (STRAW/YELL/DK YELL ) URINE APPEARANCE CLEAR (CLEAR ) URINE PH 7.0 (5.0-8.0 ) URINE SPECIFIC GRAVITY 1.020 (<=1.005->=1.030 ) URINE GLUCOSE NEGATIVE MG/DL (NEGATIVE MG/DL) URINE BILIRUBIN NEGATIVE (NEGATIVE ) URINE KETONES NEGATIVE MG/DL (NEGATIVE MG/DL) URINE BLOOD NEGATIVE (NEGATIVE ) URINE PROTEIN NEGATIVE MG/DL (NEGATIVE MG/DL) URINE UROBILINOGEN 1.0 EU/DL (0.2-1.0 EU/DL) URINE NITRITES NEGATIVE (NEGATIVE ) *URINE LEUKOCYTES NEGATIVE (NEGATIVE ) UR NEGATIVE (NEGATIVE ) DX Radiology from 10/30/2013 4:17 PMCHEST 1 VIEW DATE OF EXAM: Oct 30 2013 4:33PM Proc: DG 0066 - CHEST 1 VIEW CPT Code(s): 89708-; ; ; INDICATION / CLINICAL HISTORY: Asthma. Fever. COMPARISON: None. FINDINGS: The cardiac silhouette and pulmonary vasculature are within normal limits. There are no acute infiltrates or effusions. There is a 1.8 cm nodular density projected over the right lower lobe. This is of uncertain etiology. This could be related to the tip of the rib or represent a nipple shadow. Underlying pulmonary nodule is not excluded, however. Further evaluation with chest CT is recommended. IMPRESSION: 1. No acute cardiopulmonary disease. 2. Questionable nodule in the right lower lobe. Follow up chest CT is recommended. Problems Encounter Diagnosis No relevant problems exist. Encounters Encounter Diagnosis No relevant problems exist. Plan of Care Procedures No relevant procedures performed. Immunizations No immunizations administered or ordered. Hospital Course Hospital Discharge Instructions Allergies, Adverse Reactions, Alerts * Latex Allergy has not been assessed. * IV Contrast Allergy has not been assessed. Medication Medication reconciliation has not been performed.
--- OUTSIDE RECORDS SUMMARY | 2019-05-29 09:24 | XMS REPORT ---
Author Author DONOVAN JYOTIMAXI LYNCH Organization Unknown Address Unknown Phone Unavailable Care Team Providers Care Ventilation Worker Name Role Phone [facility] PP Unavailable Reason For Visit Chief Complaint NECK PAIN Social History Functional Status Vital Signs Results CT Scan from 02/24/2014 11:18 AMCT CEREBRAL W/O CONTRAST DATE OF EXAM: Feb 24 2014 11:43AM Proc: CT 0001 - CT CEREBRAL W/O CONTRAST CPT Code(s): 52303-; ; ; INDICATION / CLINICAL HISTORY: Headache, neck pain. Comparison is made with 12/29/13. FINDINGS: There is an unchanged small amount of fluid in the caudal aspect of the left mastoid air cells. The remainder of the mastoid air cells appear clear. This is unchanged when compared with previous study dated 12/29/13. Visualized paranasal sinuses appear clear. No intracranial hemorrhage, midline shift or mass effect is identified. The ventricles and sulci appear within normal limits. IMPRESSION: 1. No evidence of acute intracranial process. 2. Unchanged mild left mastoid mucositis. CT SPINE CERVICAL W/O CONTRAST DATE OF EXAM: Feb 24 2014 11:43AM Proc: CT 0051 - CT SPINE CERVICAL W/O CONTRAST CPT Code(s): 69901-; ; ; INDICATION / CLINICAL HISTORY: \E\Headache, neck pain with ROM FINDINGS: Alignment appears within normal limits. No fractures or subluxations are identified. No spinal or neural foraminal stenosis is identified. IMPRESSION: Unremarkable cervical spine without evidence of fracture or subluxation. Problems Encounter Diagnosis No relevant problems exist. [...]
--- OUTSIDE RECORDS SUMMARY | 2019-05-29 09:24 | XMS REPORT ---
Author Author Kecia Laguerre Organization [employer] Address Unknown Phone Unavailable Care Team Providers Care Bath Mixer Name Role Phone Rena Laguerre CP Unavailable [...]
--- OUTSIDE RECORDS SUMMARY | 2019-05-29 09:24 | XMS REPORT ---
Author Author JYOTI MAN Organization Unknown Address Unknown Phone Unavailable Care Team Providers Care Business Office Specialist Name Role Phone [facility] PP Unavailable Reason For Visit Chief Complaint EAR PAIN Social History Functional Status Vital Signs [...]
--- OUTSIDE RECORDS SUMMARY | 2019-05-29 09:24 | XMS REPORT ---
Author Author JYOTI MAN Organization Unknown Address Unknown Phone Unavailable Care Team Providers Care Electrical Prospecting Engineer Name Role Phone [facility] PP Unavailable Reason For Visit Chief Complaint DOUBLE VISION,DIZZY Social History Functional Status Vital Signs Results CT Scan from 12/29/2013 7:30 PMCT CEREBRAL W/O CONTRAST DATE OF EXAM: Dec 29 2013 9:00PM Proc: CT 0001 - CT CEREBRAL W/O CONTRAST CPT Code(s): 56217-; ; ; INDICATION / CLINICAL HISTORY: Head Injury, headache FINDINGS: The ventricles and sulci are normal in size and configuration for the patient's age. There is no evidence of acute intracranial hemorrhage or mass effect. The basilar cisterns are patent. The calvarium is intact. There is partial opacification of the left mastoid air cells. The remainder of the visualized paranasal sinuses are clear. IMPRESSION: 1. No evidence of acute intracranial hemorrhage, mass effect, or calvarial fracture. 2. Mild left mastoid mucositis. CT SPINE CERVICAL W/O CONTRAST DATE OF EXAM: Dec 29 2013 9:00PM Proc: CT 0051 - CT SPINE CERVICAL W/O CONTRAST CPT Code(s): 73778-; ; ; INDICATION / CLINICAL HISTORY: Head Injury, neck pain Head injury and neck pain. FINDINGS: Alignment and vertebral body heights are within normal limits. There is no evidence of acute fracture or subluxation. There is no evidence of significant disk bulging or spinal stenosis. The thyroid gland is heterogeneous with tiny nodules within the right lower pole measuring up to 0.8 cm. IMPRESSION: No evidence of acute fracture, subluxation, or significant spinal stenosis. Problems Encounter Diagnosis No relevant problems exist. [...]
--- OUTSIDE RECORDS SUMMARY | 2019-05-29 09:24 | XMS REPORT | Continuity of Care Document ---
Author Author [facility] Organization [facility] Address Unknown Phone Unavailable Care Team Providers Care Balance Engineer Name Role Phone NO, LOCAL PHYSICIAN PP Unavailable Insurance Providers Payer Name Policy Number Subscriber Name Relationship Unknown Jessica Swift Advance Directives Directive Response Recor ded Date Advance Directives N 8:28pm Problems No Known Problems or Medical conditions. Social History History Response Recorde d Date/Time Alcohol Use Denies Use 0 11/09/12 8:28pm Recreational Drug Use N 11/09/12 8:28pm Sexually Transmitted Disease N 11/09/12 8:28pm HIV/AIDS N 11/09/12 8:28 pm Allergies, Adverse Reactions, Alerts Allergen Type Severity Reaction Last Updated Penicillins Allergy 11/09/12 iodine Allergy 11/09/12 Codeine Allergy 11/09/12 Hydrocodone Allergy 11/09/12 clonidine Allergy 11/09/12 Medications Medication Dose Units Route Sig Qty Days Cephalexin Monohydrate (Cephalexin) 250 Mg PO Promethazine Hcl (Phenergan) 25 Mg PO Lansoprazole 15 Mg PO Loratadine 10 Mg PO Ondansetron HCl (Zofran) 1 Tab PO BID 20 Response Recorded Date/Time Status not known Unknown Results No Known Relevant Diagnostic Tests, Laboratory Data and/or Discharge Summary. Encounters Encounter Location Date/ Time Departed Emergency [facility] 11/09/12 8:19pm
--- OUTSIDE RECORDS SUMMARY | 2019-05-29 09:24 | XMS REPORT ---
Author Author JYOTI MAN Organization Unknown Address Unknown Phone Unavailable Care Team Providers Care Advertising Sales Representative Name Role Phone [facility] PP Unavailable Reason For Visit Reason for Visit from 01/06/2014 11:27 AM:* Pt Stated Reason for Adm : Mood Disorder NOS Chief Complaint MOOD DISORDER NOS Social History Social History from 01/07/2014 3:16 PM:* Tobacco Use? : Current Everyday Smoker Social History from 01/06/2014 11:27 AM:* Tobacco Use? : Current Everyday Smoker Functional Status Functional Status from 01/07/2014 8:06 AM:* LOC : Alert * Oriented To : Person,Place,Time,Event * Weight Bearing Status : Full * Assist Level : Independent * # Assists : Independent Functional Status from 01/06/2014 8:15 PM:* LOC : Alert * Oriented To : Person,Place * Weight Bearing Status : Full * Assist Level : Independent * # Assists : Independent Functional Status from 01/06/2014 11:27 AM:* LOC : Alert * Oriented To : Person,Place,Time,Event * Weight Bearing Status : Full * Assist Level : Independent * # Assists : Independent Vital Signs Hospital Vital Signs from 01/07/2014 8:33 AM:* Height : 5/3 ft,in Hospital Vital Signs from 01/07/2014 6:28 AM:* Height : 5/3 ft,in * Temperature : 99.5 F * Pulse : 84 * Respirations : 19 * BP : 98/54 Hospital Vital Signs from 01/06/2014 9:49 PM:* Height : 5/3 ft,in * Temperature : 97.8 F * Pulse : 71 * Respirations : 19 * BP : 89/63 Hospital Vital Signs from 01/06/2014 11:27 AM:* Weight : 44.5/ kg * Height : 5/3 ft,in Hospital Vital Signs from 01/06/2014 10:55 AM:* Weight : 44.5/ kg * Height : 5/3 ft,in * Temperature : 98.4 F * Pulse : 94 * Respirations : 20 * BP : 88/55 Results Chemistry from 01/06/2014 2:50 PMSODIUM 139 MMOL/L (136-145 MMOL/L) POTASSIUM 3.7 MMOL/L (3.5-5.1 MMOL/L) CHLORIDE 104 MMOL/L (98-107 MMOL/L) TCO2 30.9 MMOL/L (21.0-32.0 MMOL/L) ANION GAP 4.1 MMOL/L L (8.0-16.0 MMOL/L) BUN 9 MG/DL (7-18 MG/DL) CREATININE 0.63 MG/DL (0.43-0.83 MG/DL) BUN/CREATININE RATIO 14.3 (9.1-17.0 ) GLUCOSE 120 MG/DL H (65-99 MG/DL) GFR EST NON AFR GRE[place] >90 ML/MIN GFRA EST AFR AMER >90 ML/MIN CALCIUM 9.3 MG/DL (8.5-10.1 MG/DL) BILIRUBIN TOTAL 0.36 MG/DL (0.20-1.00 MG/DL) TOTAL PROTEIN 7.0 GM/DL (6.4-8.2 GM/DL) ALBUMIN 4.4 GM/DL (3.4-5.0 GM/DL) GLOBULIN 2.6 GM/DL (2.3-3.5 GM/DL) A/G RATIO 1.7 MG/DL (1.5-2.2 MG/DL) ALK PHOS 54 U/L (46-116 U/L) ALT (SGPT) 13 U/L (12-78 U/L) AST (SGOT) 12 U/L L (15-37 U/L) TSH 0.48 UIU/ML (0.34-4.82 UIU/ML) THYROXINE FREE 0.68 NG/DL (0.59-1.19 NG/DL) Chemistry from 01/06/2014 2:32 PMCOCAINE NEGATIVE (NEG <150 ) PCP NEGATIVE (NEG <25 ) OXYCODONE NEGATIVE (NEG <100 ) *PROPOXYPHENE (NORPROPOXYPHENE) (LAB) NEGATIVE (NEG <300 ) CANNABINOIDS NEGATIVE (NEG <50 ) BENZODIAZEINE POSITIVE A (NEG <150 ) AMPHETAMINE NEGATIVE (NEG <500 ) BARBITURATES NEGATIVE (NEG <200 ) METHAMPHETAMINES NEGATIVE (NEG <500 ) METHADONE (UR) NEGATIVE (NEG <200 ) OPIATES POSITIVE A (NEG <100 ) TRICYCLICS NEGATIVE (NEG <300 ) Hematology from 01/06/2014 2:50 PMWBC 13.6 X10e3/UL H (3.6-11.2 X10e3/UL) RBC 4.83 X10e6/UL (3.63-4.92 X10e6/UL) HEMOGLOBIN 14.4 G/DL H (11.0-14.3 G/DL) HEMATOCRIT 42.3 % H (31.2-41.9 %) MCV 87.5 FL (79.0-98.0 FL) MCH 29.8 PG (27.0-33.0 PG) MCHC 34.0 G/DL (32.0-36.0 G/DL) RDW 13.2 % (12.3-17.0 %) RDWSD 40.3 (37.1-47.8 ) PLATELET 209 X10e3/UL (159-386 X10e3/UL) MPV 8.9 FL (7.4-10.4 FL) Urinalysis from 01/06/2014 2:32 PMURINE COLOR YELLOW (STRAW/YELL/DK YELL ) URINE APPEARANCE CLEAR (CLEAR ) URINE PH 6.0 (5.0-8.0 ) URINE SPECIFIC GRAVITY 1.020 (<=1.005->=1.030 ) URINE GLUCOSE NEGATIVE MG/DL (NEGATIVE MG/DL) URINE BILIRUBIN NEGATIVE (NEGATIVE ) URINE KETONES NEGATIVE MG/DL (NEGATIVE MG/DL) URINE BLOOD NEGATIVE (NEGATIVE ) URINE PROTEIN NEGATIVE MG/DL (NEGATIVE MG/DL) URINE UROBILINOGEN 0.2 EU/DL (0.2-1.0 EU/DL) URINE NITRITES NEGATIVE (NEGATIVE ) *URINE LEUKOCYTES NEGATIVE (NEGATIVE ) UR NEGATIVE (NEGATIVE ) Problems Encounter Diagnosis No relevant problems exist. Encounters Encounter Diagnosis No relevant problems exist. Plan of Care Follow-up Appointments from 01/07/2014 3:16 PM:* #1 Office appointment: : Teresa Rea * #1 Date/Time : 01/14/2014 11:00 AM * Address # 1 : [facility]: [address], [address], [place] - * #2 Office appointment: : Angelita Mc * #2 Date/Time : 01/18/2014 1:00 PM * Address # 2 : [facility]: [address], [address], [place] Procedures No relevant procedures performed. Immunizations No immunizations administered or ordered. Hospital Course Hospital Discharge Instructions How to care for yourself at home from 01/07/2014 3:16 PM:* Discharge Activity : Activity as tolerated * Discharge Diet : As before hospitalization * Discharge Diet: : regular * Call your doctor if: : Fever over 101 F or severe chills,Chest pain or other unexplained symptoms,Tingling or numbness develops,A sudden increase or decrease in weight,You have persistent or worsening symptoms,If you have Heart Failure and you gain 3 pounds within 1 week or your symptoms worsen. (Weigh at home tomorrow morning) Allergies, Adverse Reactions, Alerts * latex causes [...] - IV Dye causes Hives and Swelling/Edema. Medication It is the responsibility of the patient or patient construction representative to confirm the list of medications with either the patient's personal care provider or the [facility] ient's follow-up care provider to ensure the patient has an appropriate list of medications to take at home. Discharge medications New medications* citalopram 20 mg Tablet, Ordered By: JYOTI FISHMAN PAC Directions: 1 tablet oral daily for depression Additional Instructions: #30 NR * pantoprazole 40 mg tablet,delayed release (DR/EC), Ordered By: JYOTI FISHMAN PAC Directions: 1 tablet oral daily before breakfast Additional Instructions: WITH A MEAL Continued medications* loratadine 10 mg Tablet, Ordered By: JYOTI FISHMAN, PAC Directions: 1 tablet oral daily Changed medications* cyclobenzaprine 10 mg Tablet, Ordered By: JYOTI FISHMAN PAC Directions: 1 tablet oral three times a day PRN PAIN * HYDROcodone-acetaminophen 5 mg-325 mg Tablet, Ordered By: SUKI CUADRA Directions: 1 tablet oral every six hours PRN PAIN * albuterol sulfate (Ventolin HFA) 90 mcg HFA Aerosol Inhaler, Ordered By: SUKI CUADRA Directions: 1 puff by inhalation four times daily PRN DYSPNEA Additional Instructions: GIVE NEEDED FOR DYSPNEA Stopped medications* lansoprazole 30 mg capsule,delayed release(DR/EC) Directions: 1 capsule oral daily Additional Instructions: with a meal * ALPRAZolam 0.25 mg Tablet Directions: 1 tablet oral daily PRN anxiety * diphenhydrAMINE HCl 25 mg Tablet Directions: 1-2 tablet oral PRN allergies * EPINEPHrine (EpiPen) 0.3 mg/0.3 mL (1:1,000) Auto-Injector * acetaminophen 325 mg Directions: 2 tablet oral every four hours PRN pain
--- OUTSIDE RECORDS SUMMARY | 2019-05-29 09:24 | XMS REPORT ---
Author Author Kecia Laguerre Organization [employer] Address Unknown Phone Unavailable Care Team Providers Care Dispenser Operator Name Role Phone Rena Laguerre CP [...] Code Onset Dates Condition Statu s Assessment Left lower quadrant pain 789.04 Act bharath Assessment Abnormal pelvic ultrasound 793.5 A ctive Problem Anxiety 300.00 Active Problem Scoliosis 737.30 Active Problem Bee sting allergy V15.06 Active Problem Asthma 493.90 Active Problem Smoker 305.1 Active Problem Allergic rhinitis 477.9 Active Problem GERD (gastroesophageal reflux disease) 530.81 Active Medications Medication Code System Code Instructions Start Date End Date Status Dosage ibuprofen NDC 0 Oral Active 1 tab Hydrocodone-Acetaminophen [facility] [address]-40 10-500 MG Orally erick ry 6 hrs Active 1 tablet as needed Claritin 10mg tab [facility] [address]-91 Ac tive not defined Flexeril [facility] [address]-64 10 MG Orally Three times a day Active 1 tablet EpiPen [facility] [address]-91 0.3 MG/0.3ML Injection As indicated Nov 16, 2013 Active as directed Ventolin [facility] [address]-63 Active not defin ed [place] [facility] [address]-86 5-325 MG Orally every 6 hrs Nov 16, 2013 Nov 30, 2013 Active 1 tablet as needed Prevacid dr 30 mg capsule [facility] [address]-89 Active not defined Alprazolam [facility] [address]-40 0.25 MG Orally Three times a day as needed Nov 16, 2013 Active 1 tablet Procedures Procedure Coding System Code Date ROUTINE VENIPUNCTURE CPT-4 52962 Dec 17 14 COMPLETE CBC W/AUTO DIFF [facility]BC.[facility] CPT-4 87800 Dec 17, 2013 Vital Signs Date/Time: Dec 17, 2013 BMI 17.25 Index Weight 97.4 lbs Height 63 in Blood Pressure Diastolic 60 mm Hg Blood Pressure Systolic 86 mm Hg Cardiac Monitoring Heart Rate 80 /min Temperature 97.8 F Respiratory Rate 18 /min Results Name Result Date Reference Range Unit Venipuncture CBC With Platelet and Differential ----MCHC 33.1 31730281 -32.0-36.0 g/dL ----MCH 29.2 [id number] -27.0-32.0 pg ----MPV 10.9 91885071 -8.8-14.8 fL ----RDW 13.4 47547833 -11.5-14.5 % ----Eosinophils 2 48290491 -0-4 % ----Basophils 1 89573370 -0-2 % ----Immature Granulocytes 0.2 27260452 -0.0-1.0 % ----Absolute Neutrophils 3.34 52141989 -1.90-7.00 THO US ----Platelet Count 162 [id number] -150-400 K/uL ----Absolute Eosinophils 0.13 87822488 -0.00-0.50 THO US ----HCT 41.7 01390754 -37.0-47.0 % ----Absolute Basophils 0.03 30896698 -0.00-0.20 THOUS ----MCV 88.3 59738064 -82.0-99.0 fL ----RBC 4.72 14178525 -4.00-5.20 M/uL ----Absolute Lymphocytes 1.09 [id number] -0.80-3.30 THO US ----Absolute Monocytes 0.76 27077256 -0.30-1.00 THOUS ----HGB 13.8 30891898 -12.0-16.0 g/dL ----Monocytes 14 41311258 -4-11 % ----WBC 5.4 [id number] -4.8-10.8 K/uL ----Neutrophils 62 17323538 -51-75 % ----Lymphocytes 20 41004131 -20-46 % Summary Purpose [employer] Submission
--- OUTSIDE RECORDS SUMMARY | 2019-05-29 09:25 | XMS REPORT | CCD ---
Author JYOTI Pinto Organization Unknown Address [address] [facility] [address] [place], [place] [id number] Care Team Providers Care O And M Supervisor Name Role Phone CARLEE PAULSON, XANDER Jimenez Attphys XANDER BEJARANO MDsuhay Vital Signs Unknown. Allergies Allergy Code Allergy Type Reaction Status CLONIDINE 2599 Drug allergy (disorder) Active PCN (penicillin) 0 Drug allergy (disorder) Active FLU VACCINE 0 Drug allergy (disorder) Active CODEINE 2670 Drug allergy (disorder) Active BLEACH {Clinical monitoring unavailable} 0 Allergy to substance (disorder) Active CINNAMON 047616 Food allergy (disorder) Active IODINE-CONTAINING 0 Drug allergy (disorder) Active Procedures Unknown. History of Immunizations Unknown. Problems Problem Code Start Date Resolved Date Sta tus LABOR AND DELIVERY, INDICATION FOR CARE 48295 Active VAGINAL DELIVERY 650 Activ e Results Unknown. Medications Medication Code Dose Units Frequency Rou te Modification Start Date/Time Stop Date/Time Claritin 10MG Oral Tablet 082774 10 MILLIGRAM S DAILY ORAL 07/15/2013 08:06 Prevacid 30MG Oral Capsule, Delayed Release 552669 30 MILLIGRAMS DAILY ORAL 07/15/2013 08:06 Ventolin HFA 0.09MG/Actuation Inhalation Aerosol Powder 484491 1 EACH NEEDED INHALATION 07/15/2013 08: 06 Xanax 0.5MG Oral Tablet 569427 0.5 MILLIGRAMS DAILY ORAL 07/15/2013 08:06 Oxycodone And Acetaminophen 325MG-5MG Oral Tablet 9802858 1 EACH NEEDED EVERY 8 HR BY MOUTH FOR PAIN 07/15 08:06 Ibuprofen 800MG Oral Tablet 892191 800 MILLIGR AMS NEEDED EVERY 8 HR BY MOUTH FOR PAIN 07/15/2013 08:06 Docusate Sodium 100MG Oral Capsule 2340703 100 MILLIGRAMS NEEDED EVERY 12 H BY MOUTH for constipation 07/15/2013 08:06 Ferrous Sulfate 325MG Oral Tablet, Enteric Coated 101264 1 TABLET DAILY BY MOUTH 07/15/2013 08:16 Medications Administered Unknown. Encounters Encounter Diagnosis Diagnosis Code Start Date SPRAIN OF KNEE & LEG NOS 8449 4 Social History Smoking Status Code Start Date End Date Current every day smoker 896625500 Patient Decision Aids Unknown. Discharge Instructions You were admitted to [facility] on 10/05/2013 with a principle diagnosis of SPRAIN OF KNEE & LEG NOS. You were discharged from [facility] on 10/06/2013. Should you have any questions prior to discharge, please contact a member of your healthcare team. If you have left the hospital and have any questions, please contact your primary care physician. Chief Complaint and Reason For Visit Chief Complaint Date of Onset LEG INJURY Function Status Unknown. Referral/Transition of Care Unknown.
--- OUTSIDE RECORDS SUMMARY | 2019-05-29 09:25 | XMS REPORT | Summary of Care ---
Author Author Kecia Ambriz D.O. Organization Unknown Address [address] [place], [place] [phone] Phone Unavailable Care Team Providers Care Clinical Trainer Name Role Phone Nidia Ambriz D.O. Unavailable [...] Active Acute bronchitis (466.0, J20.9) Status: Active Medications Name Dates Details Loratadine 10 MG Oral Tablet ActiveVentolin HFA AERS * Refills: 0 ActiveCeleXA 10 MG Oral Tablet take one tablet by mouth every day * Quantity: 30 Refills: 6 Nidia Ambriz D.O.* Started 15-Feb-2014 ActiveCyclobenzaprine HCl - 10 MG Oral Tablet TAKE 1 TABLET Bedtime * Quantity: 7 Refills: 0 Nidia Ambriz D.O.* Started 15-Feb-2014 ActiveMeloxicam 7.5 MG Oral Tablet TAKE 1 TABLET ONCE TO TWICE DAILY NEEDED WITH FOOD * Quantity: 30 Refills: 2 Nidia Ambriz D.O.* Started 15-Feb-2014 ActiveOndansetron 4 MG Oral Tablet Dispersible 1 po q 8 hrs PRN * Quantity: 10 Refills: 0 Pb RDaniela Randall D.O.* Started 25-Feb-2014 ActivePantoprazole Sodium 40 MG Oral Tablet Delayed Release take one tablet by mouth every day * Quantity: 30 Refills: 2 Nidia Ambriz D.O.* Started 02-Apr-2014 ActiveZithromax Z-Gibson 250 MG Oral Tablet TAKE 2 TABLETS ON DAY 1 THEN TAKE 1 TABLET A DAY FOR 4 DAYS. * Quantity: 1 Refills: 0 Nidia Ambriz D.O.* Started 19-Apr-2014 Active6 Tablet Disp Pack Doxycycline Monohydrate 100 MG Oral Capsule TAKE 1 CAPSULE TWICE DAILY WITH FOOD. * Quantity: 14 Refills: 0 Nidia Ambriz D.O.* Started 07-May-2014 ActivePredniSONE 10 MG Oral Tablet TAKE 6 TABLETS TODAY, THEN DECREASE BY 1 TABLET EACH DAY UNTIL GONE. * Quantity: 21 Refills: 0 Nidia Ambriz D.O.* Started 07-May-2014 Active Allergies and Adverse Reactions Name Dates [...] smoked Vital Signs Date Test Result Details 07-May-2014 13:35 Temperature 97.9 f Status: Weight 93 lb Status: Body Mass Index Calculated 16.74 kg/m2 Status: Body Surface Area Calculated 1.39 m2 Status: 19-Apr-2014 11:22 Temperature 97 f Status: Weight 99.375 lb Status: Body Mass Index Calculated 17.89 kg/m2 Status: Body Surface Area Calculated 1.43 [...]
--- OUTSIDE RECORDS SUMMARY | 2019-05-29 09:25 | XMS REPORT | Summary of Care ---
Author Author Kecia Myers D.O. Organization Unknown Address [address] [place], [place] [phone] Phone Unavailable Care Team Providers Care Technology Lab Teacher Name Role Phone Nidia Ambriz D.O. Unavailable [...]
--- OUTSIDE RECORDS SUMMARY | 2019-05-29 09:25 | XMS REPORT | Continuity of Care Document ---
Author Organization Unknown Address Unknown Phone Unavailable Allergies Active Description Code Type Severity Reaction Onset Reported/Identified Relationship to Patient Clinical Status Yes alprazolam [id number] Drug Allerg y Unknown N/A 05/23/2019 Yes BEES BEES Unknown N/A 05/23/2019 Yes Bleach (Sodium Hypochlorite) [id number] Drug Allergy Unknown N/A 05/23/2019 Yes BODY POWDER BODY POWDER Unknown N/A 05/23/2019 Yes cinnamon [id number] Drug Allergy Unknown N/A 05/23/2019 Yes clonidine [id number] Drug Allergy Unknown N/A 05/23/2019 Yes codeine [id number] Drug Allergy Unknown N/A 05/23/2019 Yes cyclobenzaprine [id number] D rug Allergy Unknown N/A 05/23/2019 Yes FLU SHOT FLU SHOT Un known N/A 05/23/2019 Yes hydrocodone [id number] Drug Aller gy Unknown N/A 05/23/2019 Yes iodine [id number] Drug Allergy Unknown N/A 05/23/2019 Yes Latex, Natural Rubber [id number] Drug Allergy Unknown N/A 05/23/2019 Yes methocarbamol [id number] Durga g Allergy Unknown N/A 05/23/2019 Yes Penicillins [id number] Drug Aller gy Unknown N/A 05/23/2019 Yes pneumococcal vaccine [id number] Drug Allergy Unknown N/A 05/23/2019 Yes STEROIDS STEROIDS Un known N/A 05/23/2019 Yes tramadol [id number] Drug Allergy Unknown N/A 05/23/2019 Yes WASP WASP Unknown N/A 05/23/2019 Medications There is no data. Problems Date Dx Coded Attending Type Code Diagnosis Diagnosed By 11/11/2012 XANDER BRANDT DO Ot 634.91 SPON ABORT UNCOMPL-INC Procedures There is no data. Results Test Result Range CULTURE, URINE - 03/22/19 12:42 CULTURE, URINE, ROUTINE SEE NOTE NRG Complete blood count (CBC) with automate d white blood cell (WBC) differential - 05/23/19 13:55 Blood leukocytes automated count (number/volume) 10.7 10*3/uL 4.3-11.0 Blood erythrocytes automated count (number/volume) 4.92 10*6/uL 4.35-5.85 Venous blood hemoglobin measurement (mass/volume) 14.7 g/dL 11.5-16.0 Blood hematocrit (volume fraction) 42 % 35-52 Automated erythrocyte mean corpuscular volume 86 [ foz_us] 80-99 Automated erythrocyte mean corpuscular h emoglobin (mass per erythrocyte) 30 pg 25-34 Automated erythrocyte mean corpuscular h emoglobin concentration measurement (mass/volume) 35 g/dL 32-36 Automated erythrocyte distribution width ratio 12. 7 % 10.0- 14.5 Automated blood platelet count (count/volume) 160 10*3/uL 130-400 Automated blood platelet mean volume measurement 10.9 [foz_us] 7.4-10.4 Automated blood neutrophils/100 leukocytes 92 % 42-75 Automated blood lymphocytes/100 leukocytes 4 % 12-44 Blood monocytes/100 leukocytes 3 % 0-12 Automated blood eosinophils/100 leukocytes 1 % 0-10 Automated blood basophils/100 leukocytes 0 % 0-10 Blood neutrophils automated count (number/volume) 9.8 10*3 1.8-7.8 Blood lymphocytes automated count (number/volume) 0.5 10*3 1.0-4.0 Blood monocytes automated count (number/volume) 0. 4 10*3 0.0-1.0 Automated eosinophil count 0.1 10*3/uL 0 .0-0.3 Automated blood basophil count (count/volume) 0.0 10*3/uL 0.0-0.1 Comprehensive metabolic panel - 05/23/19 13:55 Serum or plasma sodium measurement (moles/volume) 138 mmol/L 135-145 Serum or plasma potassium measurement (moles/volume) 3.9 mmol/L 3.6-5.0 Serum or plasma chloride measurement (moles/volume) 107 mmol/L 98-107 Carbon dioxide 22 mmol/L 21-32 Serum or plasma anion gap determination (moles/volume) 9 mmol/L 5-14 Serum or plasma urea nitrogen measurement (mass/volume ) 15 mg/dL 7-18 Serum or plasma creatinine measurement (mass/volume) 0.75 mg/dL 0.60-1.30 Serum or plasma urea nitrogen/creatinine mass ratio 20 NRG Serum or plasma creatinine measurement w ith calculation of estimated glomerular filtration rate > NRG Serum or plasma glucose measurement (mass/volume) 110 mg/dL 70-105 Serum or plasma calcium measurement (mass/volume) 9.5 mg/dL 8.5-10.1 Serum or plasma total bilirubin measurement (mass/volu me) 0.6 mg/dL 0.1-1.0 Serum or plasma alkaline phosphatase narciso surement (enzymatic activity/volume) 56 U/L 40-136 Serum or plasma aspartate aminotransfera se measurement (enzymatic activity/volume) 12 U/L 5-34 Serum or plasma alanine aminotransferase measurement (enzymatic activity/volume) 7 U/L 0-55 Serum or plasma protein measurement (mass/volume) 6.6 g/dL 6.4-8.2 Serum or plasma albumin measurement (mass/volume) 4.5 g/dL 3.2-4.5 CALCIUM CORRECTED 9.1 mg/dL 8.5-10.1 Manual absolute plasma cell count - 04/26 12/12 13:55 Blood monocytes/100 leukocytes 3 % NRG Manual blood segmented neutrophils/100 leukocytes 92 % NRG Blood band neutrophils/100 leukocytes 2 % NRG Manual blood lymphocytes/100 leukocytes 2 % NRG Manual eosinophils/100 leukocytes in nose 1 % NRG Blood erythrocyte morphology finding identification NORMAL NRG Blood toxic granules detection by light microscopy 1+ NRG Blood dohle body detection by light microscopy MOD ERATE NRG Complete urinalysis with reflex to cultu re - 05/23/19 14:13 Urine color determination ORANGE NRG Urine clarity determination SL CLOUDY N RG Urine pH measurement by test strip 6.5 5-9 Specific gravity of urine by test strip 1.020 1.016-1.022 Urine protein assay by test strip, semi-quantitative 1+ NEGATIVE Urine glucose detection by automated test strip NE GATIVE NEGATIVE Erythrocytes detection in urine sediment by light micr oscopy NEGATIVE NEGATIVE Urine ketones detection by automated test strip 1+ NEGATIVE Urine nitrite detection by test strip NEGATIVE NEGATIVE Urine total bilirubin detection by test strip 1+ NEGATIVE Urine urobilinogen measurement by automated test strip (mass/volume) 2.0 mg/dL < = 1.0 Urine leukocyte esterase detection by dipstick 2+ NEGATIVE Automated urine sediment erythrocyte cou nt by microscopy (number/high power field) NONE NRG Automated urine sediment leukocyte count by microscopy (number/high power field) [HPF] NRG Bacteria detection in urine sediment by light microsco py MODERATE NRG Crystals detection in urine sediment by light microsco py NONE NRG Casts detection in urine sediment by light microscopy NONE NRG Mucus detection in urine sediment by light microscopy MODERATE NRG Complete urinalysis with reflex to culture YES NRG Urine drug screening test - 05/23/19 14: 13 Urine phencyclidine detection by screening method NEGATIVE NEGATIVE Urine benzodiazepines detection by screening method NEGATIVE NEGATIVE Urine cocaine detection NEGATIVE NEGATI VE Urine amphetamines detection by screening method N EGATIVE NEGATIVE Urine methamphetamine detection by screening method NEGATIVE NEGATIVE Urine cannabinoids detection by screening method N EGATIVE NEGATIVE Urine opiates detection by screening method NEGATI VE NEGATIVE Urine barbiturates detection NEGATIVE N EGATIVE Screening urine tricyclic antidepressants detection NEGATIVE NEGATIVE Urine methadone detection by screening method NEGA TIVE NEGATIVE Urine oxycodone detection NEGATIVE NEGA TIVE Urine propoxyphene detection NEGATIVE N EGATIVE Encounters ACCT No. Visit Date/Time Discharge Status Pt. Type Provider Facility Loc./Unit Complaint [id number] 02/27/2019 13:46:57 02/27/2019 23:59: 59 CLS Outpatient Jose Caputoisten [id number] 02/08/2019 13:56:54 02/08/2019 23:59: 59 CLS Outpatient Yadira Balderas [id number] 01/22/2019 10:20:16 01/22/2019 23:59: 59 CLS Outpatient Mickey Patel [id number] 01/07/2019 10:47:32 01/07/2019 23:59: 59 CLS Outpatient Aristeo Rangel [id number] 12/02/2018 09:54:22 12/02/2018 23:59: 59 CLS Outpatient Mickey Patel [id number] 11/03/2018 15:37:38 11/03/2018 23:59: 59 CLS Outpatient Mickey Patel [id number] 10/15/2018 10:59:09 10/15/2018 23:59: 59 SEGUNDO Outpatient Mickey Patel [id number] 09/04/2018 09:37:13 09/04/2018 23:59: 59 CLS Outpatient Mickey Patel [id number] 07/31/2018 15:12:57 07/31/2018 23:59: 59 CLS Outpatient Hetlinger, Mickey [id number] 07/10/2018 09:18:04 07/10/2018 23:59: 59 CLS Outpatient Hetlinger, Mickey [id number] 06/24/2018 10:43:23 06/24/2018 23:59: 59 CLS Outpatient Hetlinger, Mickey [id number] 06/04/2018 11:20:22 06/04/2018 23:59: 59 CLS Outpatient Yadira Balderas [id number] 05/06/2018 15:32:30 05/06/2018 23:59: 59 CLS Outpatient Hetlinger, Mickey [id number] 04/03/2018 09:37:50 04/03/2018 23:59: 59 CLS Outpatient Hetlinger, Mickey [id number] 03/20/2018 11:11:28 03/20/2018 23:59: 59 CLS Outpatient HetlingerMickey [id number] 03/11/2018 10:50:55 03/11/2018 23:59: 59 CLS Outpatient Laura Saravanan [id number] 02/18/2018 13:28:03 02/18/2018 23:59: 59 CLS Outpatient HetlingerMickey [id number] 02/10/2018 10:51:33 02/10/2018 23:59: 59 CLS Outpatient HetlingerMickey [id number] 12/20/2017 14:19:13 12/20/2017 23:59: 59 CLS Outpatient Sanchez Saravanan [id number] 12/10/2017 14:32:02 12/10/2017 23:59: 59 CLS Outpatient LitlingerMickey [id number] 12/03/2017 12:57:15 12/03/2017 23:59: 59 CLS Outpatient Eb Renetta [id number] 11/20/2017 14:04:08 11/20/2017 23:59: 59 CLS Outpatient Laura Saravanan [id number] 09/30/2017 17:19:48 09/30/2017 23:59: 59 CLS Outpatient HetlingerMickey [id number] 09/13/2017 12:27:47 09/13/2017 23:59: 59 CLS Outpatient Laura Saravanan [id number] 09/10/2017 14:29:38 09/10/2017 23:59: 59 CLS Outpatient HetlingerMickey [id number] 09/03/2017 14:05:51 09/03/2017 23:59: 59 CLS Outpatient Caroline Crystal [id number] 08/29/2017 09:24:21 08/29/2017 23:59: 59 CLS Outpatient LitlingMickey quiroz [id number] 08/02/2017 09:47:02 08/02/2017 23:59: 59 CLS Outpatient Sanchez Saravanan [id number] 07/05/2017 10:07:35 07/05/2017 23:59: 59 CLS Outpatient Sanchez Saravanan [id number] 07/01/2017 14:31:22 07/01/2017 23:59: 59 CLS Outpatient LitlingerMickey [id number] 05/23/2017 10:13:42 05/23/2017 23:59: 59 CLS Outpatient Mickey Patel [id number] 05/09/2017 11:24:04 05/09/2017 23:59: 59 CLS Outpatient LitlingMickey quiroz [id number] 05/02/2017 10:38:44 05/02/2017 23:59: 59 CLS Outpatient Laura Saravanan [id number] 04/04/2017 10:18:56 04/04/2017 23:59: 59 CLS Outpatient HetlingMickey quiroz [id number] 03/19/2017 14:48:27 03/19/2017 23:59: 59 CLS Outpatient Mickey Patel [id number] 03/11/2017 11:48:50 03/11/2017 23:59: 59 CLS Outpatient Andrey Yadira [id number] 02/20/2017 10:52:16 02/20/2017 23:59: 59 CLS Outpatient LitlingMickey quiroz [id number] 02/20/2017 09:46:45 02/20/2017 23:59: 59 CLS Outpatient Sanchez Saravanan [id number] 01/30/2017 15:43:51 01/30/2017 23:59: 59 CLS Outpatient Yadira Balderas [id number] 01/09/2017 09:57:07 01/09/2017 23:59: 59 CLS Outpatient Sanchez Saravanan [id number] 01/08/2017 09:33:15 01/08/2017 23:59: 59 CLS Outpatient HetlingerMickey [id number] 12/28/2016 10:42:30 12/28/2016 23:59: 59 CLS Outpatient Walker, Yadira [id number] 12/19/2016 11:53:01 12/19/2016 23:59: 59 CLS Outpatient Mickey Patel [id number] 12/12/2016 11:17:08 12/12/2016 23:59: 59 CLS Outpatient Mickey Patel [id number] 11/29/2016 16:13:40 11/29/2016 23:59: 59 CLS Outpatient Saravanan Sanchez [id number] 10/17/2016 11:41:04 10/17/2016 23:59: 59 CLS Outpatient Mickey Patel [id number] 10/13/2016 11:59:53 10/13/2016 23:59: 59 CLS Outpatient Miriam Ireland [id number] 10/12/2016 18:00:26 10/12/2016 23:59: 59 CLS Outpatient Aristeo Rangel [id number] 10/02/2016 10:37:18 10/02/2016 23:59: 59 CLS Outpatient Mickey Patel [id number] 09/05/2016 10:45:51 09/05/2016 23:59: 59 CLS Outpatient Mickey Patel [id number] 08/27/2016 16:18:10 08/27/2016 23:59: 59 CLS Outpatient Mickey Patel [id number] 08/21/2016 18:04:56 08/21/2016 23:59: 59 CLS Outpatient Miriam Ireland [id number] 08/26/2013 16:37:35 08/26/2013 23:59: 59 CLS Outpatient Andres Cook [id number] 07/26/2013 21:10:03 07/26/2013 23:59: 59 CLS Outpatient Kristi Fierro [id number] 07/26/2013 21:07:42 07/26/2013 23:59: 59 CLS Outpatient Andres Cook [id number] 07/09/2013 16:06:37 07/09/2013 23:59: 59 CLS Outpatient Andres Cook [id number] 06/29/2013 15:13:43 06/29/2013 23:59: 59 CLS Outpatient Andres Cook [id number] 06/04/2013 11:38:01 06/04/2013 23:59: 59 CLS Outpatient Andres Cook [id number] 04/09/2013 15:44:05 04/09/2013 23:59: 59 CLS Outpatient Andres Cook [id number] 05/20/2019 16:05:00 05/20/2019 23:59: 59 CLS Outpatient [facility] [id number] 03/22/2019 12:05:00 Document Registration [id number] 05/23/2019 18:50:00 020 21:00:00 DIS Inpatient JENNIFFER SHARMA DO Via [facility] 4TH R SIDE ABD PAIN, N/V [id number] 11/11/2012 17:15:00 013 21:35:00 DIS Outpatient XANDER BRANDT DO Via [facility] [id number] 11/09/2012 20:19:00 013 23:36:00 DIS Emergency
--- OUTSIDE RECORDS SUMMARY | 2019-05-29 09:25 | XMS REPORT | Summary of Care ---
Author Author Kecia Ambriz D.O. Organization Unknown Address [address], [place] [id number] Phone Unavailable Care Team Providers Care Mobility Specialist Name Role Phone Nidia Ambriz D.O. Unavailable [...] Knee pain, left (719.46, M25.562) Status: Active Medications Name Dates Details Loratadine [...] 4 DAYS. * Quantity: 1 Refills: 0 Manjinder Ambriz. Prakash D.O.* Started 19-Apr-2014 Active6 Tablet Disp Pack Doxycycline Monohydrate 100 MG Oral Capsule TAKE 1 CAPSULE TWICE DAILY WITH FOOD. * Quantity: 14 Refills: 0 Manjinder Ambriz. Prakash D.O.* Started 07-May-2014 ActivePredniSONE 10 MG Oral Tablet TAKE 6 TABLETS TODAY, THEN DECREASE BY 1 TABLET EACH DAY UNTIL GONE. * Quantity: 21 Refills: 0 Nidia Ambriz D.O.* Started 07-May-2014 ActiveMeloxicam 7.5 MG Oral [...] History of Knee Surgery History of Hysterectomy MRI KNEE LEFT Ordered:02-Jun-2014 Immunization Name Dates Details Immunizations not documented [...] Body Surface Area Calculated 1.41 m2 Status: 07-May-2014 13:35 Temperature 97.9 f Status: Weight 93 lb Status: Body Mass Index Calculated 16.74 kg/m2 Status: Body Surface Area Calculated 1.39 m2 Status: Results Date Description Value Details [...]
--- OUTSIDE RECORDS SUMMARY | 2019-05-29 09:25 | XMS REPORT | Summary of Care ---
Author Author Kecia Queen M.D. Organization Unknown Address [address], [place] [id number] Phone Unavailable Care Team Providers Care Home Stereo Equipment Installer Name Role Phone Nidia Ambriz D.O. Unavailable [...]
--- OUTSIDE RECORDS SUMMARY | 2019-05-29 09:25 | XMS REPORT ---
Author Author Kecia Laguerre Organization [employer] Address Unknown Phone Unavailable Care Team Providers Care Big Data Lead Name Role Phone Rena Laguerre CP Unavailable Allergies No Known Allergies Problems Problem Type Condition ICD-9 Code Onset Dates Condition Statu s Problem Smoker 305.1 Active Assessment Back pain 724.5 Active Problem Bee sting allergy V15.06 Active Problem Anxiety 300.00 Active Problem Back pain 724.5 Active Problem GERD (gastroesophageal reflux disease) 530.81 Active Problem Asthma 493.90 Active Problem Scoliosis 737.30 Active Problem Allergic rhinitis 477.9 Active Medications No Known Medications Results No Known Results Summary Purpose [employer] Submission
--- OUTSIDE RECORDS SUMMARY | 2019-05-29 09:25 | XMS REPORT ---
Author Author JYOTI MAN Organization Unknown Address Unknown Phone Unavailable Care Team Providers Care Equalizer Operator Name Role Phone [facility] Unavailable Reason For Visit Chief Complaint MUSCLE SPASMS IN LEGS Social History Functional Status Vital Signs Results Chemistry from 02/05/2014 6:45 PMCOCAINE NEGATIVE (NEG <150 ) PCP NEGATIVE (NEG <25 ) OXYCODONE NEGATIVE (NEG <100 ) *PROPOXYPHENE (NORPROPOXYPHENE) (LAB) NEGATIVE (NEG <300 ) CANNABINOIDS NEGATIVE (NEG <50 ) BENZODIAZEINE NEGATIVE (NEG <150 ) AMPHETAMINE NEGATIVE (NEG <500 ) BARBITURATES NEGATIVE (NEG <200 ) METHAMPHETAMINES NEGATIVE (NEG <500 ) METHADONE (UR) NEGATIVE (NEG <200 ) OPIATES NEGATIVE (NEG <100 ) TRICYCLICS NEGATIVE (NEG <300 ) Chemistry from 02/05/2014 5:10 PMSODIUM 140 MMOL/L (136-145 MMOL/L) POTASSIUM 3.7 MMOL/L (3.5-5.1 MMOL/L) CHLORIDE 107 MMOL/L (98-107 MMOL/L) TCO2 26.2 MMOL/L (21.0-32.0 MMOL/L) ANION GAP 6.8 MMOL/L L (8.0-16.0 MMOL/L) BUN 15 MG/DL (7-18 MG/DL) CREATININE 0.59 MG/DL (0.43-0.83 MG/DL) BUN/CREATININE RATIO 25.4 H (9.1-17.0 ) GLUCOSE 84 MG/DL (65-99 MG/DL) GFR EST NON AFR EMIRATI >90 ML/MIN GFRA EST AFR AMER >90 ML/MIN CALCIUM 9.1 MG/DL (8.5-10.1 MG/DL) BILIRUBIN TOTAL 0.23 MG/DL (0.20-1.00 MG/DL) TOTAL PROTEIN 6.6 GM/DL (6.4-8.2 GM/DL) ALBUMIN 3.9 GM/DL (3.4-5.0 GM/DL) GLOBULIN 2.7 GM/DL (2.3-3.5 GM/DL) A/G RATIO 1.4 MG/DL L (1.5-2.2 MG/DL) ALK PHOS 52 U/L (46-116 U/L) ALT (SGPT) 17 U/L (12-78 U/L) AST (SGOT) 14 U/L L (15-37 U/L) MAGNESIUM 1.8 MG/DL (1.8-2.4 MG/DL) ALCOHOL <0.003 GM/DL ACETAMINOPHEN <2 MCG/ML L (10-30 MCG/ML) SALICYLATE 5.2 MG/DL (2.8-20.0 MG/DL) Hematology from 02/05/2014 5:10 PMWBC 6.6 X10e3/UL (3.6-11.2 X10e3/UL) RBC 4.66 X10e6/UL (3.63-4.92 X10e6/UL) HEMOGLOBIN 13.8 G/DL (11.0-14.3 G/DL) HEMATOCRIT 40.7 % (31.2-41.9 %) MCV 87.5 FL (79.0-98.0 FL) MCH 29.7 PG (27.0-33.0 PG) MCHC 33.9 G/DL (32.0-36.0 G/DL) RDW 13.8 % (12.3-17.0 %) RDWSD 41.6 (37.1-47.8 ) PLATELET 165 X10e3/UL (159-386 X10e3/UL) MPV 8.5 FL (7.4-10.4 FL) AUTOMATED DIFF PERFORMED SEGS 66.2 % LYMPHOCYTES 23.9 % MONOCYTES 6.9 % EOSINOPHILS 2.2 % BASOPHILS 0.8 % ABSOLUTE NEUTROPHILS 4.4 X10e3/UL (1.8-7.8 X10e3/UL) ABSOLUTE LYMPHOCYTES 1.6 X10e3/UL (1.0-3.0 X10e3/UL) ABSOLUTE MONOCYTES 0.5 X10e3/UL (0.3-1.0 X10e3/UL) ABSOLUTE EOSINOPHILS 0.1 X10e3/UL (0.0-0.5 X10e3/UL) ABSOLUTE BASOPHILS 0.1 X10e3/UL (0.0-0.2 X10e3/UL) Urinalysis from 02/05/2014 6:45 PMURINE COLOR YELLOW (STRAW/YELL/DK YELL ) URINE APPEARANCE CLOUDY A (CLEAR ) URINE PH 7.0 (5.0-8.0 ) [...]
--- OUTSIDE RECORDS SUMMARY | 2019-05-29 12:05 | XMS REPORT | Continuity of Care Document ---
Author Organization Unknown Address Unknown Phone Unavailable Allergies Active Description Code Type Severity Reaction Onset Reported/Identified Relationship to Patient Clinical Status Yes alprazolam [id number] Drug Allerg y Unknown N/A 05/23/2019 Yes BEES BEES Unknown N/A 05/23/2019 Yes Bleach (Sodium Hypochlorite) [id number] 5 Drug Allergy Unknown N/A 05/23/2019 Yes BODY POWDER BODY POWDER Unknown N/A 05/23/2019 Yes cinnamon [id number] Drug Allergy Unknown N/A 05/23/2019 Yes clonidine [id number] Drug Allergy Unknown N/A 05/23/2019 Yes codeine [id number] Drug Allergy Unknown N/A 05/23/2019 Yes cyclobenzaprine [id number] D rug Allergy Unknown N/A 05/23/2019 Yes FLU SHOT FLU SHOT Un known N/A 05/23/2019 Yes hydrocodone F029241686 Drug Aller gy Unknown N/A 05/23/2019 Yes iodine [id number] Drug Allergy Unknown N/A 05/23/2019 Yes Latex, Natural Rubber [id number] Drug Allergy Unknown N/A 05/23/2019 Yes methocarbamol [id number] Durga g Allergy Unknown N/A 05/23/2019 Yes Penicillins [id number] Drug Aller gy Unknown N/A 05/23/2019 Yes pneumococcal vaccine [id number] Drug Allergy Unknown N/A 05/23/2019 Yes STEROIDS STEROIDS Un known N/A 05/23/2019 Yes tramadol [id number] Drug Allergy Unknown N/A 05/23/2019 Yes WASP [...] Status Pt. Type Provider Facility Loc./Unit Complaint [id number] 02/27/2019 13:46:57 02/27/2019 23:59: 59 CLS Outpatient Jose Caputoisten [id number] 02/08/2019 13:56:54 02/08/2019 23:59: 59 CLS Outpatient Yadira Balderas [id number] 01/22/2019 10:20:16 01/22/2019 23:59: 59 CLS Outpatient Mickey Patel [id number] 01/07/2019 10:47:32 01/07/2019 23:59: 59 CLS Outpatient Aristeo Rangel [id number] 12/02/2018 09:54:22 12/02/2018 23:59: 59 CLS Outpatient Mickey Patel [id number] 11/03/2018 15:37:38 11/03/2018 23:59: 59 CLS Outpatient Mickey Patel [id number] 10/15/2018 10:59:09 10/15/2018 23:59: 59 SEGUNDO Outpatient Mickey Patel [id number] 09/04/2018 09:37:13 09/04/2018 23:59: 59 CLS Outpatient Mickey Patel [id number] 07/31/2018 15:12:57 07/31/2018 23:59: 59 CLS Outpatient Hetlinger, Mickey [id number] 07/10/2018 09:18:04 07/10/2018 23:59: 59 CLS Outpatient Hetlinger, Mickey [id number] 06/24/2018 10:43:23 06/24/2018 23:59: 59 CLS Outpatient Hetlinger, Mickey [id number] 06/04/2018 11:20:22 06/04/2018 23:59: 59 CLS Outpatient Yadira Balderas [id number] 05/06/2018 15:32:30 05/06/2018 23:59: 59 CLS Outpatient Hetlinger, Mickey [id number] 04/03/2018 09:37:50 04/03/2018 23:59: 59 CLS Outpatient Hetlinger, Mickey [id number] 03/20/2018 11:11:28 03/20/2018 23:59: 59 CLS Outpatient HetlingerMickey [id number] 03/11/2018 10:50:55 03/11/2018 23:59: 59 CLS Outpatient Laura Saravanan [id number] 02/18/2018 13:28:03 02/18/2018 23:59: 59 CLS Outpatient HetlingerMickey [id number] 02/10/2018 10:51:33 02/10/2018 23:59: 59 CLS Outpatient HetlingerMickey [id number] 12/20/2017 14:19:13 12/20/2017 23:59: 59 CLS Outpatient Sanhcez Saravanan [id number] 12/10/2017 14:32:02 12/10/2017 23:59: 59 CLS Outpatient LitlingerMickey [id number] 12/03/2017 12:57:15 12/03/2017 23:59: 59 CLS Outpatient Eb Renetta [id number] 11/20/2017 14:04:08 11/20/2017 23:59: 59 CLS Outpatient Laura Saravanan [id number] 09/30/2017 17:19:48 09/30/2017 23:59: 59 CLS Outpatient HetlingerMickey [id number] 09/13/2017 12:27:47 09/13/2017 23:59: 59 CLS Outpatient Laura Saravanan [id number] 09/10/2017 14:29:38 09/10/2017 23:59: 59 CLS Outpatient HetlingerMickey [id number] 09/03/2017 14:05:51 09/03/2017 23:59: 59 CLS Outpatient Caroline Crystal [id number] 08/29/2017 09:24:21 08/29/2017 23:59: 59 CLS Outpatient LitlingMickey quiroz [id number] 08/02/2017 09:47:02 08/02/2017 23:59: 59 CLS Outpatient Sanchez Saravanan [id number] 07/05/2017 10:07:35 07/05/2017 23:59: 59 CLS Outpatient Sanchez Saravanan [id number] 07/01/2017 14:31:22 07/01/2017 23:59: 59 CLS Outpatient LitlingerMickey [id number] 05/23/2017 10:13:42 05/23/2017 23:59: 59 CLS Outpatient Mickey Patel [id number] 05/09/2017 11:24:04 05/09/2017 23:59: 59 CLS Outpatient LitlingMickey quiroz [id number] 05/02/2017 10:38:44 05/02/2017 23:59: 59 CLS Outpatient Laura Saravanan [id number] 04/04/2017 10:18:56 04/04/2017 23:59: 59 CLS Outpatient HetlingMickey quiroz [id number] 03/19/2017 14:48:27 03/19/2017 23:59: 59 CLS Outpatient Mickey Patel [id number] 03/11/2017 11:48:50 03/11/2017 23:59: 59 CLS Outpatient Andrey Yadira [id number] 02/20/2017 10:52:16 02/20/2017 23:59: 59 CLS Outpatient LitlingMickey quiroz [id number] 02/20/2017 09:46:45 02/20/2017 23:59: 59 CLS Outpatient Sanchez Saravanan [id number] 01/30/2017 15:43:51 01/30/2017 23:59: 59 CLS Outpatient Yadira Balderas [id number] 01/09/2017 09:57:07 01/09/2017 23:59: 59 CLS Outpatient Sanchez Saravanan [id number] 01/08/2017 09:33:15 01/08/2017 23:59: 59 CLS Outpatient HetlingerMickey [id number] 12/28/2016 10:42:30 12/28/2016 23:59: 59 CLS Outpatient Walker, Yadira [id number] 12/19/2016 11:53:01 12/19/2016 23:59: 59 CLS Outpatient Mickey Patel [id number] 12/12/2016 11:17:08 12/12/2016 23:59: 59 CLS Outpatient Mickey Patel [id number] 11/29/2016 16:13:40 11/29/2016 23:59: 59 CLS Outpatient Saravanan Sanchez [id number] 10/17/2016 11:41:04 10/17/2016 23:59: 59 CLS Outpatient Mickey Patel [id number] 10/13/2016 11:59:53 10/13/2016 23:59: 59 CLS Outpatient Miriam Ireland [id number] 10/12/2016 18:00:26 10/12/2016 23:59: 59 CLS Outpatient Aristeo Rangel [id number] 10/02/2016 10:37:18 10/02/2016 23:59: 59 CLS Outpatient Mickey Patel [id number] 09/05/2016 10:45:51 09/05/2016 23:59: 59 CLS Outpatient Mickey Patel [id number] 08/27/2016 16:18:10 08/27/2016 23:59: 59 CLS Outpatient Mickey Patel [id number] 08/21/2016 18:04:56 08/21/2016 23:59: 59 CLS Outpatient Miriam Ireland [id number] 08/26/2013 16:37:35 08/26/2013 23:59: 59 CLS Outpatient Andres Cook [id number] 07/26/2013 21:10:03 07/26/2013 23:59: 59 CLS Outpatient Kristi Fierro [id number] 07/26/2013 21:07:42 07/26/2013 23:59: 59 CLS Outpatient Andres Cook [id number] 07/09/2013 16:06:37 07/09/2013 23:59: 59 CLS Outpatient Andres Coko [id number] 06/29/2013 15:13:43 06/29/2013 23:59: 59 CLS Outpatient Andres Cook [id number] 06/04/2013 11:38:01 06/04/2013 23:59: 59 CLS Outpatient Andres Cook [id number] 04/09/2013 15:44:05 04/09/2013 23:59: 59 CLS Outpatient Andres Cook [id number] 05/20/2019 16:05:00 05/20/2019 23:59: 59 CLS Outpatient [facility] [id number] 03/22/2019 12:05:00 Document Registration [id number] 05/23/2019 18:50:00 020 21:00:00 DIS Inpatient JENNIFFER SHARMA DO [facility] 4TH R SIDE ABD PAIN, N/V [id number] 11/11/2012 17:15:00 013 21:35:00 DIS Outpatient XANDER BRANDT DO [facility] [id number] 11/09/2012 20:19:00 013 23:36:00 DIS Emergency
--- OUTSIDE RECORDS SUMMARY | 2019-06-04 15:20 | XMS REPORT | Continuity of Care Document ---
Author Organization Unknown Address Unknown Phone Unavailable Allergies Active Description Code Type Severity Reaction Onset Reported/Identified Relationship to Patient Clinical Status Yes alprazolam [id number] Drug Allerg y Unknown N/A 05/23/2019 Yes BEES BEES Unknown N/A 05/23/2019 Yes Bleach (Sodium Hypochlorite) [id number] Drug Allergy Unknown N/A 05/23/2019 Yes BODY POWDER BODY POWDER Unknown N/A 05/23/2019 Yes cinnamon [id number] Drug Allergy Unknown N/A 05/23/2019 Yes clonidine [id number] Drug Allergy Unknown N/A 05/23/2019 Yes codeine [id number] Drug Allergy Unknown N/A 05/23/2019 Yes cyclobenzaprine [id number] D rug Allergy Unknown N/A 05/23/2019 Yes FLU SHOT FLU SHOT Un known N/A 05/23/2019 Yes hydrocodone [id number] Drug Aller gy Unknown N/A 05/23/2019 Yes iodine Z441306981 Drug Allergy Unknown N/A 05/23/2019 Yes Latex, Natural Rubber [id number] Drug Allergy Unknown N/A 05/23/2019 Yes methocarbamol [id number] Durga g Allergy Unknown N/A 05/23/2019 Yes Penicillins [id number] Drug Aller gy Unknown N/A 05/23/2019 Yes pneumococcal vaccine [id number] Drug Allergy Unknown N/A 05/23/2019 Yes STEROIDS STEROIDS Un known N/A 05/23/2019 Yes tramadol [id number] Drug Allergy Unknown N/A 05/23/2019 Yes WASP WASP Unknown N/A 05/23/2019 Medications There is no data. Problems Date Dx Coded Attending Type Code Diagnosis Diagnosed By 11/11/2012 XANDER BRANDT DO Ot 634.91 SPON ABORT UNCOMPL-INC 06/03/2019 JENNIFFER SHARMA DO Ot E11. 9 TYPE 2 DIABETES MELLITUS WITHOUT COMPLIC 06/03/2019 JENNIFFER SHARMA DO Ot F17.210 NICOTINE DEPENDENCE, CIGARETTES, UNCOMPL 06/03/2019 [facility], JENNIFFER D Ot F20. 9 SCHIZOPHRENIA, UNSPECIFIED 06/03/2019 [facility], JENNIFFER D Ot F31. 9 BIPOLAR DISORDER, UNSPECIFIED 06/03/2019 [facility], JENNIFFER D Ot F90. 9 ATTENTION-DEFICIT HYPERACTIVITY DISORDER 06/03/2019 [facility], JENNIFFER D Ot G40.909 EPILEPSY, UNSP, NOT INTRACTABLE, WITHOUT 06/03/2019 [facility] JENNIFFER D Ot J45.909 UNSPECIFIED ASTHMA, UNCOMPLICATED 06[facility]03/[facility] K21. 9 GASTRO-ESOPHAGEAL REFLUX DISEASE WITHOUT [facility]/03[facility] K35. 80 UNSPECIFIED ACUTE APPENDICITIS [facility]/03/[facility] N83.201 UNSPECIFIED OVARIAN CYST, RIGHT SIDE 06/03/[facility] N83.202 UNSPECIFIED OVARIAN CYST, LEFT SIDE 06/03/[facility] Z79.899 OTHER LONGTERM (CURRENT) DRUG THERAPY 06/03/2019 [facility] Z88. 0 ALLERGY STATUS TO PENICILLIN [facility]/03/2019 [facility] Z88. 5 ALLERGY STATUS TO NARCOTIC AGENT STATUS 06/03/[facility] Z91.040 LATEX ALLERGY STATUS Procedures There is no data. Results Test [...] mg/dL 0.1-1.0 Serum or plasma alkaline phosphatase nacriso surement (enzymatic activity/volume) 56 U/L 40-136 Serum [...] Status Pt. Type Provider Facility Loc./Unit Complaint [id number] 02/27/2019 13:46:57 02/27/2019 23:59: 59 CLS Outpatient Batsheva Caputo [id number] 02/08/2019 13:56:54 02/08/2019 23:59: 59 CLS Outpatient Yadira Balderas [id number] 01/22/2019 10:20:16 01/22/2019 23:59: 59 CLS Outpatient Mickey Patel [id number] 01/07/2019 10:47:32 01/07/2019 23:59: 59 CLS Outpatient Aristeo Rangel [id number] 12/02/2018 09:54:22 12/02/2018 23:59: 59 CLS Outpatient Mickey Patel [id number] 11/03/2018 15:37:38 11/03/2018 23:59: 59 CLS Outpatient Mickey Patel [id number] 10/15/2018 10:59:09 10/15/2018 23:59: 59 CLS Outpatient Mickey Patel [id number] 09/04/2018 09:37:13 09/04/2018 23:59: 59 SEGUNDO Outpatient Mickey Patel [id number] 07/31/2018 15:12:57 07/31/2018 23:59: 59 SEGUNDO Outpatient Mickey Patel [id number] 07/10/2018 09:18:04 07/10/2018 23:59: 59 SEGUNDO Outpatient Mickey Patel [id number] 06/24/2018 10:43:23 06/24/2018 23:59: 59 SEGUNDO Outpatient Mickey Patel [id number] 06/04/2018 11:20:22 06/04/2018 23:59: 59 CLS Outpatient Yadira Balderas [id number] 05/06/2018 15:32:30 05/06/2018 23:59: 59 CLS Outpatient Mickey Patel [id number] 04/03/2018 09:37:50 04/03/2018 23:59: 59 CLS Outpatient HetlingerMickey [id number] 03/20/2018 11:11:28 03/20/2018 23:59: 59 CLS Outpatient Hetlinger, Mickey [id number] 03/11/2018 10:50:55 03/11/2018 23:59: 59 CLS Outpatient Sanchez, Saravanan [id number] 02/18/2018 13:28:03 02/18/2018 23:59: 59 CLS Outpatient HetlingerMickey [id number] 02/10/2018 10:51:33 02/10/2018 23:59: 59 CLS Outpatient HetlingerMickey [id number] 12/20/2017 14:19:13 12/20/2017 23:59: 59 CLS Outpatient Sanchez, Saravanan [id number] 12/10/2017 14:32:02 12/10/2017 23:59: 59 CLS Outpatient HetlingerMickey [id number] 12/03/2017 12:57:15 12/03/2017 23:59: 59 CLS Outpatient Renetta Parson [id number] 11/20/2017 14:04:08 11/20/2017 23:59: 59 CLS Outpatient Sanchez, Saravanan [id number] 09/30/2017 17:19:48 09/30/2017 23:59: 59 CLS Outpatient HetlingerMickey [id number] 09/13/2017 12:27:47 09/13/2017 23:59: 59 CLS Outpatient Sanchez, Saravanan [id number] 09/10/2017 14:29:38 09/10/2017 23:59: 59 CLS Outpatient HetlingerMickey [id number] 09/03/2017 14:05:51 09/03/2017 23:59: 59 CLS Outpatient Caroline Crystal [id number] 08/29/2017 09:24:21 08/29/2017 23:59: 59 CLS Outpatient HetlingerMickey [id number] 08/02/2017 09:47:02 08/02/2017 23:59: 59 CLS Outpatient Sanchez, Saravanan [id number] 07/05/2017 10:07:35 07/05/2017 23:59: 59 CLS Outpatient Sanchez, Saravanan [id number] 07/01/2017 14:31:22 07/01/2017 23:59: 59 CLS Outpatient HetlingerMickey [id number] 05/23/2017 10:13:42 05/23/2017 23:59: 59 CLS Outpatient HetlingerMickey [id number] 05/09/2017 11:24:04 05/09/2017 23:59: 59 CLS Outpatient HetlingerMickey [id number] 05/02/2017 10:38:44 05/02/2017 23:59: 59 CLS Outpatient Humberto Sanchezitya [id number] 04/04/2017 10:18:56 04/04/2017 23:59: 59 CLS Outpatient HetlingerMickey [id number] 03/19/2017 14:48:27 03/19/2017 23:59: 59 CLS Outpatient HetlingerMickey [id number] 03/11/2017 11:48:50 03/11/2017 23:59: 59 CLS Outpatient Yadira Balderas [id number] 02/20/2017 10:52:16 02/20/2017 23:59: 59 CLS Outpatient HetlingMickey quiroz [id number] 02/20/2017 09:46:45 02/20/2017 23:59: 59 CLS Outpatient Laura Saravanan [id number] 01/30/2017 15:43:51 01/30/2017 23:59: 59 CLS Outpatient Yadira Balderas [id number] 01/09/2017 09:57:07 01/09/2017 23:59: 59 CLS Outpatient Laura Saravanan [id number] 01/08/2017 09:33:15 01/08/2017 23:59: 59 CLS Outpatient iLtlingMickey quiroz [id number] 12/28/2016 10:42:30 12/28/2016 23:59: 59 CLS Outpatient Yadira Balderas [id number] 12/19/2016 11:53:01 12/19/2016 23:59: 59 CLS Outpatient HetlingerMickey [id number] 12/12/2016 11:17:08 12/12/2016 23:59: 59 CLS Outpatient HetlingerMickey [id number] 11/29/2016 16:13:40 11/29/2016 23:59: 59 CLS Outpatient Laura Saravanan [id number] 10/17/2016 11:41:04 10/17/2016 23:59: 59 CLS Outpatient HetlingMickey quiroz [id number] 10/13/2016 11:59:53 10/13/2016 23:59: 59 CLS Outpatient Miriam Ireland [id number] 10/12/2016 18:00:26 10/12/2016 23:59: 59 CLS Outpatient Aristeo Rangel [id number] 10/02/2016 10:37:18 10/02/2016 23:59: 59 CLS Outpatient Mickey Patel [id number] 09/05/2016 10:45:51 09/05/2016 23:59: 59 CLS Outpatient Mickey Patel [id number] 08/27/2016 16:18:10 08/27/2016 23:59: 59 CLS Outpatient Mickey Patel [id number] 08/21/2016 18:04:56 08/21/2016 23:59: 59 CLS Outpatient Miriam Ireland [id number] 08/26/2013 16:37:35 08/26/2013 23:59: 59 CLS Outpatient Andres Cook [id number] 07/26/2013 21:10:03 07/26/2013 23:59: 59 CLS Outpatient Kristi Fierro [id number] 07/26/2013 21:07:42 07/26/2013 23:59: 59 CLS Outpatient Andres Cook [id number] 07/09/2013 16:06:37 07/09/2013 23:59: 59 CLS Outpatient Andres Cook [id number] 06/29/2013 15:13:43 06/29/2013 23:59: 59 CLS Outpatient Andres Cook [id number] 06/04/2013 11:38:01 06/04/2013 23:59: 59 CLS Outpatient Andres Cook [id number] 04/09/2013 15:44:05 04/09/2013 23:59: 59 CLS Outpatient Andres Cook [id number] 05/20/2019 16:05:00 05/20/2019 23:59: 59 CLS Outpatient BRIEN BRIZUELA LAC [facility] [id number] 03/22/2019 12:05:00 Document Registration [id number] 05/23/2019 18:50:00 020 21:00:00 DIS Outpatient JENNIFFER SHARMA DO Via [facility] R SIDE ABD PAIN, N/V [id number] 11/11/2012 17:15:00 013 21:35:00 DIS Outpatient XANDER BRANDT DO [facility] [place] [id number] 11/09/2012 20:19:00 013 23:36:00 DIS Emergency
== END 2019-05-23 21:00 | disposition home or self-care (01) ==
LOC: EDUNIT# 13:44 → ER 13:45 → SDC 18:50 → UNDOADMIN 18:50 → 4TH 18:50 → SDC 21:00 → UNDODISIN 21:00
PROVIDERS: ATTEND Surgery
DX: K35.80 Unspecified acute appendicitis (principal); N83.201 Unspecified ovarian cyst, right side; N83.202 Unspecified ovarian cyst, left side; E11.9 Type 2 diabetes mellitus without complications; Z88.0 Allergy status to penicillin; Z88.5 Allergy status to narcotic agent; J45.909 Unspecified asthma, uncomplicated; G40.909 Epilepsy, unspecified, not intractable, without status epilepticus; F90.9 Attention-deficit hyperactivity disorder, unspecified type; K21.9 Gastro-esophageal reflux disease without esophagitis; F31.9 Bipolar disorder, unspecified; F20.9 Schizophrenia, unspecified; Z91.040 Latex allergy status; F17.210 Nicotine dependence, cigarettes, uncomplicated; Z79.899 Other long term (current) drug therapy
CPT/HCPCS: 36415; 74176; 80053; 80306; 81000; 85007; 85027; 88304; 96374; 96375

== ENCOUNTER → 2019-08-10 | Outpatient (CLI) | payer MEDICAID ==
[~2019-08-10] MED LIST changes: +ACHD5005 PO; +CIPR-226 PO; +DOCU-143 PO
--- NOTE | 2019-08-10 14:20 | Diagnostic Imaging Report ---
INDICATION: Pre MRI screening. TIME OF EXAM: 01:38 p.m. FINDINGS: No definite radiopaque orbital foreign bodies are identified. No definite radiopaque foreign bodies over the temporal bones are seen. IMPRESSION: No radiopaque foreign bodies are detected. Dictated by: Dictated on workstation # [id number]
--- NOTE | 2019-08-10 14:42 | Diagnostic Imaging Report ---
PROCEDURE: MR imaging of the brain without contrast. TECHNIQUE: Multiplanar, multisequence MR imaging of the brain was performed without contrast. INDICATION: Balance disorder. COMPARISON: None. FINDINGS: No abnormal intracranial signal. No restricted water diffusion or hemosiderin deposition. Normal morphology including the major midline structures, sella, posterior fossa, and cerebellopontine angle. Normal intracranial flow voids. No hydrocephalus or extra-axial fluid collections. Large left middle turbinate suzan bullosa and advanced rightward bowing of the nasal septum. Small mucous retention cyst in the right maxillary sinus measures 1.2 cm. There is fluid throughout the right mastoid. There is also small left mastoid effusion. Normal bone marrow signal. IMPRESSION: 1. Normal MRI of the brain without contrast. 2. Fluid throughout the right mastoid. There is also a small left mastoid effusion. Dictated by: Dictated on workstation # [id number]
== END ==
LOC: RAD 07-31 09:58
PROVIDERS: ATTEND Physical Medicine & Rehabilitation
DX: M25.48 Effusion, other site (principal); R26.89 Other abnormalities of gait and mobility; R26.9 Unspecified abnormalities of gait and mobility
CPT/HCPCS: 70250; 70551

== ENCOUNTER 2019-09-07 22:53 | Emergency (ER) | payer MEDICAID ==
[~2019-09-07] VITALS: Ht 157 cm; Wt 49.9 kg
[2019-09-07 23:52] LABS: BILIRUBIN,URINE NEGATIVE (NEGATIVE); CLARITY,URINE SL CLOUDY; COLOR,URINE DARK YELLOW; GLUCOSE, URINE (UA) NEGATIVE (NEGATIVE); KETONES,URINE TRACE (NEGATIVE); LEUKOCYTE ESTERASE ,URINE NEGATIVE (NEGATIVE); NITRITE,URINE NEGATIVE (NEGATIVE); PH,URINE 6.5 (5-9); PROTEIN,URINE NEGATIVE (NEGATIVE)
[2019-09-08 00:01] LABS: BACTERIA,URINE TRACE /HPF; SQUAMOUS EPITHELIAL CELL,UR >50 /HPF
--- OUTSIDE RECORDS SUMMARY | 2019-09-08 00:26 | XMS REPORT | Continuity of Care Document ---
Author Organization Unknown Address Unknown Phone Unavailable Allergies Active Description Code Type Severity Reaction Onset Reported/Identified Relationship to Patient Clinical Status Yes alprazolam [id number] Drug Allerg y Unknown N/A 05/23/2019 Yes BEES BEES Unknown N/A 05/23/2019 Yes Bleach (Sodium Hypochlorite) [id number] Drug Allergy Unknown N/A 05/23/2019 Yes BODY POWDER BODY POWDER Unknown N/A 05/23/2019 Yes cinnamon [id number] Drug Allergy Unknown N/A 05/23/2019 Yes clonidine [id number] Drug Allergy Unknown N/A 05/23/2019 Yes codeine [id number] Drug Allergy Unknown N/A 05/23/2019 Yes cyclobenzaprine [id number] D rug Allergy Unknown N/A 05/23/2019 Yes FLU SHOT FLU SHOT Un known N/A 05/23/2019 Yes hydrocodone [id number] Drug Aller gy Unknown N/A 05/23/2019 Yes iodine [id number] Drug Allergy Unknown N/A 05/23/2019 Yes Latex, Natural Rubber [id number] Drug Allergy Unknown N/A 05/23/2019 Yes methocarbamol [id number] Durga g Allergy Unknown N/A 05/23/2019 Yes Penicillins [id number] Drug Aller gy Unknown N/A 05/23/2019 Yes pneumococcal vaccine [id number] Drug Allergy Unknown N/A 05/23/2019 Yes STEROIDS STEROIDS Un known N/A 05/23/2019 Yes tramadol [id number] Drug Allergy Unknown N/A 05/23/2019 Yes WASP WASP Unknown N/A 05/23/2019 Medications There is no data. Problems Date Dx Coded Attending Type Code Diagnosis Diagnosed By 11/11/2012 XANDER BRANDT DO Ot 634.91 SPON ABORT UNCOMPL-INC 05/23/2019 JENNIFFER SHARMA DO Ot E11. 9 TYPE 2 DIABETES MELLITUS WITHOUT COMPLIC 05/23/2019 JENNIFFER SHARMA DO Ot F17.210 NICOTINE DEPENDENCE, CIGARETTES, UNCOMPL 05/23/2019 SHARMA DOHECTORTT Johnathan Ot F20. 9 SCHIZOPHRENIA, UNSPECIFIED 05/23/2019 SHARMA DOJENNIFFER Ot F31. 9 BIPOLAR DISORDER, UNSPECIFIED 05/23/2019 SHARMA DOJENNIFFER Ot F90. 9 ATTENTION-DEFICIT HYPERACTIVITY DISORDER 05/23/2019 SHARMA DOHECTORTT Johnathan Ot G40.909 EPILEPSY, UNSP, NOT INTRACTABLE, WITHOUT 05/23/2019 SHARMA DOHECTORTT Johnathan Ot J45.909 UNSPECIFIED ASTHMA, UNCOMPLICATED 05/23/2019 [place] DOJENNIFFER Ot K21. 9 GASTRO-ESOPHAGEAL REFLUX DISEASE WITHOUT 05/23/2019 SHARMA DOJENNIFFER Ot K35. 80 UNSPECIFIED ACUTE APPENDICITIS 05/23/2019 SHARMA DOJENNIFFER Ot N83.201 UNSPECIFIED OVARIAN CYST, RIGHT SIDE 05/23/2019 SHARMA DOJENNIFFER Ot N83.202 UNSPECIFIED OVARIAN CYST, LEFT SIDE 05/23/2019 SHARMA JENNIFFER SUNG Ot Z79.899 OTHER CUSTODIAL (CURRENT) DRUG THERAPY 05/23/2019 SHARMA JENNIFFER SUNG Ot Z88. 0 ALLERGY STATUS TO PENICILLIN 05/23/2019 SHARMA DOJENNIFFER Ot Z88. 5 ALLERGY STATUS TO NARCOTIC AGENT STATUS 05/23/2019 SHARMA JENNIFFER SUNG Ot Z91.040 LATEX ALLERGY STATUS 06/03/2019 SHARMA JENNIFFER SUNG Ot E11. 9 TYPE 2 DIABETES MELLITUS WITHOUT COMPLIC 06/03/2019 SHARMA JENNIFFER SUNG Ot F17.210 NICOTINE DEPENDENCE, CIGARETTES, UNCOMPL 06/03/2019 SHARMA JENNIFFER SUNG Ot F20. 9 SCHIZOPHRENIA, UNSPECIFIED 06/03/2019 SHARMA JENNIFFER SUNG Ot F31. 9 BIPOLAR DISORDER, UNSPECIFIED 06/03/2019 JENNIFFER SHARMA DO Ot F90. 9 ATTENTION-DEFICIT HYPERACTIVITY DISORDER 06/03/2019 SHARMA JENNIFFER SUNG Ot G40.909 EPILEPSY, UNSP, NOT INTRACTABLE, WITHOUT 06/03/2019 SHARMA HECTOR SUNGTT Johnathan Ot J45.909 UNSPECIFIED ASTHMA, UNCOMPLICATED 06/03/2019 JENNIFFER SHARMA DO Ot K21. 9 GASTRO-ESOPHAGEAL REFLUX DISEASE WITHOUT 06/03/2019 SHARMA DO, JENNIFFER D Ot K35. 80 UNSPECIFIED ACUTE APPENDICITIS 06/03/2019 SHARMA DO, JENNIFFER D Ot N83.201 UNSPECIFIED OVARIAN CYST, RIGHT SIDE 06/03/2019 SHARMA DO, JENNIFFER D Ot N83.202 UNSPECIFIED OVARIAN CYST, LEFT SIDE 06/03/2019 SHARMA DO, JENNIFFER D Ot Z79.899 OTHER CUSTODIAL (CURRENT) DRUG THERAPY 06/03/2019 SHARMA DO, JENNIFFER D Ot Z88. 0 ALLERGY STATUS TO PENICILLIN 06/03/2019 [place] DO, JENNIFFER D Ot Z88. 5 ALLERGY STATUS TO NARCOTIC AGENT STATUS 06/03/2019 [place] DO, JENNIFFER D Ot Z91.040 LATEX ALLERGY STATUS 06/05/2019 SHARMA DO, JENNIFFER D Ot E11. 9 TYPE 2 DIABETES MELLITUS WITHOUT COMPLIC 06/05/2019 SHARMA DO, JENNIFFER D Ot F17.210 NICOTINE DEPENDENCE, CIGARETTES, UNCOMPL 06/05/2019 SHARMA DO, JENNIFFER D Ot F20. 9 SCHIZOPHRENIA, UNSPECIFIED 06/05/2019 [facility], JENNIFFER D Ot F31. 9 BIPOLAR DISORDER, UNSPECIFIED 06/05/2019 [facility], JENNIFFER D Ot F90. 9 ATTENTION-DEFICIT HYPERACTIVITY DISORDER 06/05/2019 SHARMA DO, JENNIFFER D Ot G40.909 EPILEPSY, UNSP, NOT INTRACTABLE, WITHOUT 06/05/2019 SHARMA DO, JENNIFFER D Ot J45.909 UNSPECIFIED ASTHMA, UNCOMPLICATED 06/05/2019 [facility], JENNIFFER D Ot K21. 9 GASTRO-ESOPHAGEAL REFLUX DISEASE WITHOUT 06/05/2019 SHARMA DO, JENNIFFER D Ot K35. 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 0 ALLERGY STATUS TO PENICILLIN 06/05/2019 SHARMA DO, JENNIFFER D Ot Z88. 5 ALLERGY STATUS TO NARCOTIC AGENT STATUS 06/05/2019 SHARMA DO, JENNIFFER D Ot Z91.040 LATEX ALLERGY STATUS 06/15/2019 [facility], JENNIFFER D Ot E11. 9 TYPE 2 DIABETES MELLITUS WITHOUT COMPLIC 06/15/2019 SHARMA DO, JENNIFFER D Ot F17.210 NICOTINE DEPENDENCE, CIGARETTES, UNCOMPL 06/15/2019 [place] DO, JENNIFFER D Ot F20. 9 SCHIZOPHRENIA, UNSPECIFIED 06/15/2019 [place] DO, JENNIFFER D Ot F31. 9 BIPOLAR DISORDER, UNSPECIFIED 06/15/2019 [facility], JENNIFFER D Ot F90. 9 ATTENTION-DEFICIT HYPERACTIVITY DISORDER 06/15/2019 [facility], JENNIFFER D Ot G40.909 EPILEPSY, UNSP, NOT INTRACTABLE, WITHOUT 06/15/2019 [facility], JENNIFFER D Ot J45.909 UNSPECIFIED ASTHMA, UNCOMPLICATED 06/15/2019 SHARMA DO JENNIFFER D Ot K21. 9 GASTRO-ESOPHAGEAL REFLUX DISEASE WITHOUT 06/15/2019 [facility], JENNIFFER D Ot K35. 80 UNSPECIFIED ACUTE APPENDICITIS 06/15/2019 SHARMA DO JENNIFFER D Ot N83.201 UNSPECIFIED OVARIAN CYST, RIGHT SIDE 06/15/2019 [facility] Ot N83.202 UNSPECIFIED OVARIAN CYST, LEFT SIDE 06/15/2019 [facility], JENNIFFER D Ot Z79.899 OTHER PROGRAMMING SPECIALIST (CURRENT) DRUG THERAPY 06/15/2019 SHARMA DOHECTORTT D Ot Z88. 0 ALLERGY STATUS TO PENICILLIN 06/15/2019 [facility], JENNIFFER D Ot Z88. 5 ALLERGY STATUS TO NARCOTIC AGENT STATUS 06/15/2019 [facility] JENNIFFER D Ot Z91.040 LATEX ALLERGY STATUS 08/11/2019 JUAREZ DO, FERDINAND Ot M25.4 8 EFFUSION, OTHER SITE 08/11/2019 JUAREZ DO, FERDINAND Ot R26.8 9 OTHER ABNORMALITIES OF GAIT AND MOBILITY 08/11/2019 JUAREZ DO, FERDINAND Ot R26.9 UNSPECIFIED ABNORMALITIES OF GAIT AND MO Procedures There is no data. Results Test [...] TIVE Urine propoxyphene detection NEGATIVE N EGATIVE LIPID PANEL - 07/10/19 10:00 CHOLESTEROL, TOTAL 145 mg/dL <200 HDL CHOLESTEROL 30 mg/dL > OR = 50 TRIGLYCERIDES 107 mg/dL <150 LDL-CHOLESTEROL 95 mg/dL (calc) NRG CHOL/HDLC RATIO 4.8 (calc) <5.0 NON HDL CHOLESTEROL 115 mg/dL (calc) <13 0 CMP - 07/10/19 10:00 GLUCOSE 86 mg/dL 65-99 UREA NITROGEN (BUN) 11 mg/dL 7-25 CREATININE 0.58 mg/dL 0.50-1.10 eGFR NON-AFR. BHUTANESE 119 mL/min/1.73m2 > OR = 60 eGFR 137 mL/min/1.73m2 > OR = 60 BUN/CREATININE RATIO NOT APPLICABLE (calc) 6-22 SODIUM 137 mmol/L 135-146 POTASSIUM 3.9 mmol/L 3.5-5.3 CHLORIDE 106 mmol/L 98-110 CARBON DIOXIDE 24 mmol/L 20-32 CALCIUM 9.3 mg/dL 8.6-10.2 PROTEIN, TOTAL 6.1 g/dL 6.1-8.1 ALBUMIN 4.4 g/dL 3.6-5.1 GLOBULIN 1.7 g/dL (calc) 1.9-3.7 ALBUMIN/GLOBULIN RATIO 2.6 (calc) 1.0-2. 5 BILIRUBIN, TOTAL 0.5 mg/dL 0.2-1.2 ALKALINE PHOSPHATASE 58 U/L 31-125 AST 10 U/L 10-30 ALT 5 U/L 6-29 CBC - 07/10/19 10:00 WHITE BLOOD CELL COUNT 6.5 Thousand/uL 3 .8-10.8 RED BLOOD CELL COUNT 4.59 Million/uL 3.8 0-5.10 HEMOGLOBIN 13.6 g/dL 11.7-15.5 HEMATOCRIT 39.9 % 35.0-45.0 MCV 86.9 fL 80.0-100.0 MCH 29.6 pg 27.0-33.0 MCHC 34.1 g/dL 32.0-36.0 RDW 12.4 % 11.0-15.0 PLATELET COUNT 173 Thousand/uL 140-400 MPV 11.0 fL 7.5-12.5 ABSOLUTE NEUTROPHILS 4186 cells/uL 1500- 7800 ABSOLUTE LYMPHOCYTES 1580 cells/uL 850-3 900 ABSOLUTE MONOCYTES 416 cells/uL 200-950 ABSOLUTE EOSINOPHILS 260 cells/uL 15-500 ABSOLUTE BASOPHILS 59 cells/uL 0-200 NEUTROPHILS 64.4 % NRG LYMPHOCYTES 24.3 % NRG MONOCYTES 6.4 % NRG EOSINOPHILS 4.0 % NRG BASOPHILS 0.9 % NRG UA W/ MICROSCOPY - 07/10/19 10:00 COLOR DARK YELLOW YELLOW APPEARANCE TURBID CLEAR SPECIFIC GRAVITY 1.028 1.001-1.035 PH < OR = 5.0 5.0-8.0 GLUCOSE NEGATIVE NEGATIVE BILIRUBIN NEGATIVE NEGATIVE KETONES NEGATIVE NEGATIVE OCCULT BLOOD TRACE NEGATIVE PROTEIN NEGATIVE NEGATIVE NITRITE NEGATIVE NEGATIVE LEUKOCYTE ESTERASE 2+ NEGATIVE WBC 20-40 /HPF < OR = 5 RBC 0-2 /HPF < OR = 2 SQUAMOUS EPITHELIAL CELLS 10-20 /HPF < O R = 5 BACTERIA FEW /HPF NONE SEEN HYALINE CAST NONE SEEN /LPF NONE SEEN CULTURE, URINE - 07/10/19 10:00 CULTURE, URINE, ROUTINE SEE NOTE NRG A1C - 07/10/19 10:00 HEMOGLOBIN A1c 4.7 % of total Hgb <5.7 Complete urinalysis with reflex to cultu re - 09/07/19 23:30 Urine color determination DARK YELLOW N RG Urine clarity determination SL CLOUDY N RG Urine pH measurement by test strip 6.5 5-9 Specific gravity of urine by test strip 1.020 1.016-1.022 Urine protein assay by test strip, semi-quantitative NEGATIVE NEGATIVE Urine glucose detection by automated test strip NE GATIVE NEGATIVE Erythrocytes detection in urine sediment by light micr oscopy NEGATIVE NEGATIVE Urine ketones detection by automated test strip TR OVN NEGATIVE Urine nitrite detection by test strip NEGATIVE NEGATIVE Urine total bilirubin detection by test strip NEGA TIVE NEGATIVE Urine urobilinogen measurement by automated test strip (mass/volume) 4.0 mg/dL < = 1.0 Urine leukocyte esterase detection by dipstick NEG ATIVE NEGATIVE Automated urine sediment erythrocyte cou nt by microscopy (number/high power field) NONE NRG Automated urine sediment leukocyte count by microscopy (number/high power field) NONE NRG Bacteria detection in urine sediment by light microsco py TRACE NRG Squamous epithelial cells detection in u rine sediment by light microscopy >50 NRG Crystals detection in urine sediment by light microsco py NONE NRG Casts detection in urine sediment by light microscopy NONE NRG Mucus detection in urine sediment by light microscopy NEGATIVE NRG Complete urinalysis with reflex to culture NO NRG Encounters ACCT No. Visit Date/Time Discharge Status Pt. Type Provider Facility Loc./Unit Complaint [id number] 08/20/2019 14:30:32 08/20/2019 23:59: 59 CLS Outpatient Ferdinand Juarez [id number] 08/04/2019 13:56:32 08/04/2019 23:59: 59 CLS Outpatient Mickey Patel [id number] 07/29/2019 09:51:24 07/29/2019 23:59: 59 CLS Outpatient Ferdinand Juarez [id number] 07/28/2019 11:07:37 07/28/2019 23:59: 59 CLS Outpatient Ferdinand Juarez [id number] 07/23/2019 12:40:22 07/23/2019 23:59: 59 CLS Outpatient Mickey Patel [id number] 07/17/2019 10:27:22 07/17/2019 23:59: 59 CLS Outpatient Mickey Patel [id number] 07/13/2019 10:37:03 07/13/2019 23:59: 59 CLS Outpatient Ferdinand Juarez [id number] 07/09/2019 12:13:46 07/09/2019 23:59: 59 CLS Outpatient Mickey Patel [id number] 06/29/2019 11:24:10 06/29/2019 23:59: 59 CLS Outpatient Mickey Patel [id number] 02/27/2019 13:46:57 02/27/2019 23:59: 59 CLS Outpatient Batsheva Caputo [id number] 02/08/2019 13:56:54 02/08/2019 23:59: 59 CLS Outpatient Yadira Balderas [id number] 01/22/2019 10:20:16 01/22/2019 23:59: 59 CLS Outpatient HetlingerMickey [id number] 01/07/2019 10:47:32 01/07/2019 23:59: 59 CLS Outpatient Aristeo Rangel [id number] 12/02/2018 09:54:22 12/02/2018 23:59: 59 CLS Outpatient HetlingerMickey [id number] 11/03/2018 15:37:38 11/03/2018 23:59: 59 CLS Outpatient HetlingerMickey [id number] 10/15/2018 10:59:09 10/15/2018 23:59: 59 CLS Outpatient HetlingerMickey [id number] 09/04/2018 09:37:13 09/04/2018 23:59: 59 CLS Outpatient HetlingerMickey [id number] 07/31/2018 15:12:57 07/31/2018 23:59: 59 CLS Outpatient HetlingerMickey [id number] 07/10/2018 09:18:04 07/10/2018 23:59: 59 CLS Outpatient HetlingerMickey [id number] 06/24/2018 10:43:23 06/24/2018 23:59: 59 CLS Outpatient HetlingerMickey [id number] 06/04/2018 11:20:22 06/04/2018 23:59: 59 CLS Outpatient Yadira Balderas [id number] 05/06/2018 15:32:30 05/06/2018 23:59: 59 CLS Outpatient HetlingerMickey [id number] 04/03/2018 09:37:50 04/03/2018 23:59: 59 CLS Outpatient HetlingerMickey [id number] 03/20/2018 11:11:28 03/20/2018 23:59: 59 CLS Outpatient HetlingerMickey [id number] 03/11/2018 10:50:55 03/11/2018 23:59: 59 CLS Outpatient LauraFerdinand [id number] 02/18/2018 13:28:03 02/18/2018 23:59: 59 CLS Outpatient HetlingerMickey [id number] 02/10/2018 10:51:33 02/10/2018 23:59: 59 CLS Outpatient HetlingerMickey [id number] 12/20/2017 14:19:13 12/20/2017 23:59: 59 CLS Outpatient Juarez, Ferdinand [id number] 12/10/2017 14:32:02 12/10/2017 23:59: 59 CLS Outpatient HetlingerMickey [id number] 12/03/2017 12:57:15 12/03/2017 23:59: 59 CLS Outpatient Renetta Parson [id number] 11/20/2017 14:04:08 11/20/2017 23:59: 59 CLS Outpatient Juarez, Ferdinand [id number] 09/30/2017 17:19:48 09/30/2017 23:59: 59 CLS Outpatient Hetlinger, Mickey [id number] 09/13/2017 12:27:47 09/13/2017 23:59: 59 CLS Outpatient Juarez, Ferdinand [id number] 09/10/2017 14:29:38 09/10/2017 23:59: 59 CLS Outpatient HetlingerMickey [id number] 09/03/2017 14:05:51 09/03/2017 23:59: 59 CLS Outpatient Caroline Crystal [id number] 08/29/2017 09:24:21 08/29/2017 23:59: 59 CLS Outpatient LitlingerMickey [id number] 08/02/2017 09:47:02 08/02/2017 23:59: 59 CLS Outpatient Juarez, Ferdinand [id number] 07/05/2017 10:07:35 07/05/2017 23:59: 59 CLS Outpatient Juarez, Ferdinand [id number] 07/01/2017 14:31:22 07/01/2017 23:59: 59 CLS Outpatient HetlingerMickey [id number] 05/23/2017 10:13:42 05/23/2017 23:59: 59 CLS Outpatient HetlingerMickey [id number] 05/09/2017 11:24:04 05/09/2017 23:59: 59 CLS Outpatient HetlingerMickey [id number] 05/02/2017 10:38:44 05/02/2017 23:59: 59 CLS Outpatient Juarez, Ferdinand [id number] 04/04/2017 10:18:56 04/04/2017 23:59: 59 CLS Outpatient HetlingerMickey [id number] 03/19/2017 14:48:27 03/19/2017 23:59: 59 CLS Outpatient HetlingerMickey [id number] 03/11/2017 11:48:50 03/11/2017 23:59: 59 CLS Outpatient Yadira Balderas [id number] 02/20/2017 10:52:16 02/20/2017 23:59: 59 CLS Outpatient HetlingerMickey [id number] 02/20/2017 09:46:45 02/20/2017 23:59: 59 CLS Outpatient Laura Ferdinand [id number] 01/30/2017 15:43:51 01/30/2017 23:59: 59 CLS Outpatient Yadira Balderas [id number] 01/09/2017 09:57:07 01/09/2017 23:59: 59 CLS Outpatient Laura Ferdinand [id number] 01/08/2017 09:33:15 01/08/2017 23:59: 59 CLS Outpatient HetlingMickey quiroz [id number] 12/28/2016 10:42:30 12/28/2016 23:59: 59 CLS Outpatient Yadira Balderas [id number] 12/19/2016 11:53:01 12/19/2016 23:59: 59 CLS Outpatient HetlingerMickey [id number] 12/12/2016 11:17:08 12/12/2016 23:59: 59 CLS Outpatient HetMickey evans [id number] 11/29/2016 16:13:40 11/29/2016 23:59: 59 CLS Outpatient Humberto Juarezitya [id number] 10/17/2016 11:41:04 10/17/2016 23:59: 59 CLS Outpatient Jorge Mickey [id number] 10/13/2016 11:59:53 10/13/2016 23:59: 59 CLS Outpatient Miriam Ireland [id number] 10/12/2016 18:00:26 10/12/2016 23:59: 59 CLS Outpatient Aristeo Rangel [id number] 10/02/2016 10:37:18 10/02/2016 23:59: 59 CLS Outpatient HetlingMickey quiroz [id number] 09/05/2016 10:45:51 09/05/2016 23:59: 59 CLS Outpatient LitMickey evans [id number] 08/27/2016 16:18:10 08/27/2016 23:59: 59 CLS Outpatient LitlingMickey quiroz [id number] 08/21/2016 18:04:56 08/21/2016 23:59: 59 CLS Outpatient Miriam Ireland [id number] 08/26/2013 16:37:35 08/26/2013 23:59: 59 CLS Outpatient Andres Cook [id number] 07/26/2013 21:10:03 07/26/2013 23:59: 59 CLS Outpatient Kristi Fierro [id number] 07/26/2013 21:07:42 07/26/2013 23:59: 59 CLS Outpatient Andres Cook [id number] 07/09/2013 16:06:37 07/09/2013 23:59: 59 CLS Outpatient Andres Cook [id number] 06/29/2013 15:13:43 06/29/2013 23:59: 59 CLS Outpatient Andres Cook [id number] 06/04/2013 11:38:01 06/04/2013 23:59: 59 CLS Outpatient Andres Cook [id number] 04/09/2013 15:44:05 04/09/2013 23:59: 59 CLS Outpatient Andres Cook [id number] 07/22/2019 13:00:00 07/22/2019 23:59: 59 CLS [facility] [id number] 07/10/2019 09:00:00 Document Registration [id number] 03/22/2019 12:05:00 Document Registration [id number] 08/10/2019 13:11:00 020 23:59:59 CLS Outpatient JUAREZ DO, FERDINAND [facility] RAD BALANCE DISORDER, FALLS FREQUENTLY [id number] 05/23/2019 18:50:00 020 21:00:00 DIS Outpatient JENNIFFER SHARMA DO [facility] R SIDE ABD PAIN, N/V [id number] 11/11/2012 17:15:00 013 21:35:00 DIS Outpatient XANDER BRANDT DO S [facility] [id number] 11/09/2012 20:19:00 013 23:36:00 DIS Emergency [id number] 09/08/2019 00:01:00 Document Registration
--- NOTE | 2019-09-08 00:47 | ED Abdominal Pain ---
General Chief Complaint: Abdominal/GI Problems Stated Complaint: ABD PAIN,BACK PAIN,CONSTIPATION Nursing Triage Note: Pt ambulates to [facility] 5 with c/o abd pain/back pain. Pt denies any urinary or bowel changes. Sepsis Screen: No Definite Risk Source of Information: Patient Exam Limitations: No Limitations (NARCISO ROGERS,RIKI STUDENT) History of Present Illness Date Seen by Provider: Sep 08, 2019 Time Seen by Provider: 00:30 Initial Comments Ms. De La Garza is a 38 year old female that presents to the emergency department with complaints of sudden onset suprapubic abdominal pain that radiates down bilateral groins and around to her back. The pain began at 20:45 after she ate part of a chili cheese dog with onions from [employer]. She describes the pain as burning and sharp an 8/10 with rest but a 10/10 with movement including walking. Her last bowel movement was 3 days ago which she states is normal for her. She takes narcotics regularly for chronic back pain. She denies diarrhea, nausea, vomiting, chest pain, shortness of breath, fever, chills, vaginal discharge/odor/irritation, or any urinary symptoms. She is sexually active with 1 partner. Abdominal surgeries include an appendectomy and a partial hysterectomy due to cancer. Timing/Duration: 4-6 Hours Severity/Quality: Moderate Location: Suprapubic Radiation: Back, Groin Activities at Onset: Other (eating) Modifying Factors: Worsens With Eating, Worsens With Movement; Improves With Resting Associated Symptoms: No Chest Pain, No Fever/Chills, No Heartburn, No Nausea/Vomiting (NARCISO ROGERS,RIKI STUDENT) Allergies and Home Medications Allergies Coded Allergies: Bleach (Sodium Hypochlorite) (Unverified Allergy, Unknown, 05/23/19) Latex, Natural Rubber (Unverified Allergy, Unknown, 05/23/19) Penicillins (Verified Allergy, Unknown, 05/23/19) alprazolam (Unverified Allergy, Unknown, 05/23/19) cinnamon (Unverified Allergy, Unknown, 05/23/19) clonidine (Verified Allergy, Unknown, 05/23/19) codeine (Verified Allergy, Unknown, 05/23/19) cyclobenzaprine (Unverified Allergy, Unknown, 05/23/19) hydrocodone (Verified Allergy, Unknown, 05/23/19) iodine (Verified Allergy, Unknown, 05/23/19) RASH methocarbamol (Unverified Allergy, Unknown, 05/23/19) pneumococcal vaccine (Unverified Allergy, Unknown, 05/23/19) tramadol (Unverified Allergy, Unknown, 05/23/19) Uncoded Allergies: BEES (Allergy, Unknown, 05/23/19) BODY POWDER (Allergy, Unknown, 05/23/19) FLU SHOT (Allergy, Unknown, 05/23/19) STEROIDS (Allergy, Unknown, 05/23/19) WASP (Allergy, Unknown, 05/23/19) Home Medications Ciprofloxacin HCl 250 Mg Tablet, 250 MG PO BID Prescribed by: JENNIFFER SHARMA on 05/23/191755 Docusate Sodium 100 Mg Capsule, 100 MG PO BID Prescribed by: JENNIFFER SHARMA on 05/23/191755 Doxycycline Monohydrate 100 Mg Tablet, 100 MG PO BID Prescribed by: XANDER BRANDT on 11/11/121845 Hydrocodone Bit/Acetaminophen 1 Tab Tab, 1-2 TAB PO Q6H PRN for PAIN-MODERATE Prescribed by: JENNIFFER SHARMA on 05/23/191755 Methylergonovine Maleate 0.2 Mg Tab, 1 EACH PO TID Prescribed by: XANDER BRANDT on 11/11/121845 Patient Home Medication List Home Medication List Reviewed: Yes (NARCISO ROGERS MED STUDENT) Review of Systems Review of Systems Constitutional: no symptoms reported EENTM: No Symptoms Reported Respiratory: No Symptoms Reported Cardiovascular: No Symptoms Reported Gastrointestinal: Abdominal Pain; Denies Constipated, Denies Diarrhea, Denies Nausea, Denies Vomiting Genitourinary: No Symptoms Reported Musculoskeletal: no symptoms reported Skin: no symptoms reported Psychiatric/Neurological: Other (PTSD) Endocrine: No Symptoms Reported Hematologic/Lymphatic: No Symptoms Reported (NARCISO ROGERS MED STUDENT) Past Fnvneiu-Dtieue-Ckyqwn Hx Patient Social History Alcohol Use: Rarely Uses Recreational Drug Use: No Smoking Status: Current Everyday Smoker Type Used: Cigarettes Recent Foreign Travel: No Contact w/Someone Who Travel: No Recent Infectious Disease Expo: No Physical Abuse: No Sexual Abuse: No Mistreated: No Fear: No (NARCISO ROGERS MED STUDENT) Past Medical History Surgeries: Yes (BMT) Adenoidectomy, Hysterectomy, Tonsillectomy Respiratory: Yes Asthma Cardiac: No Neurological: No Reproductive Disorders: No Female Reproductive Disorders: Menstrual Problems, Ovarian Cyst Sexually Transmitted Disease: No HIV/AIDS: No Bladder Infection Gastrointestinal: No Gastroesophageal Reflux Musculoskeletal: No Endocrine: Yes (HYPOGLYCEMIC. ) Diabetes, Non-Insulin dep Cancer: Yes Cervical Psychosocial: Yes ADD/ADHD, Anxiety, Bipolar, Schizophrenia, Depression Integumentary: No Blood Disorders: Yes (ANEMIA) (NARCISO ROGERS,RIKI STUDENT) Family Medical History No Pertinent Family Hx (NARCISO ROGERS MED STUDENT) Physical Exam Vital Signs Vital Signs - First Documented 09/07/19 23:08 Temp 36.7 Pulse 71 Resp 20 B/P (MAP) 97/57 (70) Pulse Ox 97 O2 Delivery Room Air (DEANDRE EDWARDS MD) Vital Signs Capillary Refill : Less Than 3 Seconds (NARCISO ROGERS,RIKI STUDENT) Height/Weight/BMI Height: '" Weight: 97lbs. oz. [id number]; 20.00 BMI Method:Stated General Appearance: WD/WN, no apparent distress HEENT: PERRL/EOMI, other (moist mucus membranes, edentulous) Neck: non-tender, full range of motion Respiratory: chest non-tender, lungs clear, normal breath sounds, no respiratory distress, no accessory muscle use Cardiovascular: regular rate, rhythm Peripheral Pulses: 2+ Radial Pulses (R), 2+ Radial Pulses (L) Gastrointestinal: normal bowel sounds, soft, no organomegaly; No guarding, No rebound; tenderness (moderate suprapubic, LLQ, RLQ. RLQ > LLQ), other (+ heel test, - garsia) Extremities: no pedal edema, no calf tenderness, other (ambulates with walker ) Back: no CVA tenderness Neurologic/Psychiatric: alert, normal mood/affect, oriented x 3 Skin: normal color, warm/dry (NARCISO ROGERS,RIKI STUDENT) Progress/Results/Core Measures Results/Orders Lab Results Laboratory Tests Test 09/07/19 23:15 09/07/19 23:30 Range/Units White Blood Count 7.5 4.3-11.0 10^3/uL Red Blood Count 4.52 4.35-5.85 10^6/uL Hemoglobin 13.5 11.5-16.0 G/DL Hematocrit 39 35-52 % Mean Corpuscular Volume 86 80-99 FL Mean Corpuscular Hemoglobin 30 25-34 PG Mean Corpuscular Hemoglobin Concent 35 32-36 G/DL Red Cell Distribution Width 12.9 10.0-14.5 % Platelet Count 181 130-400 10^3/uL Mean Platelet Volume 11.1 H 7.4-10.4 FL Neutrophils (%) (Auto) 71 42-75 % Lymphocytes (%) (Auto) 22 12-44 % Monocytes (%) (Auto) 6 0-12 % Eosinophils (%) (Auto) 1 0-10 % Basophils (%) (Auto) 0 0-10 % Neutrophils # (Auto) 5.3 1.8-7.8 X 10^3 Lymphocytes # (Auto) 1.6 1.0-4.0 X 10^3 Monocytes # (Auto) 0.5 0.0-1.0 X 10^3 Eosinophils # (Auto) 0.1 0.0-0.3 10^3/uL Basophils # (Auto) 0.0 0.0-0.1 10^3/uL Sodium Level 141 135-145 MMOL/L Potassium Level 3.8 3.6-5.0 MMOL/L Chloride Level 111 H 98-107 MMOL/L Carbon Dioxide Level 18 L 21-32 MMOL/L Anion Gap 12 5-14 MMOL/L Blood Urea Nitrogen 11 7-18 MG/DL Creatinine 0.69 0.60-1.30 MG/DL Estimat Glomerular Filtration Rate > 60 BUN/Creatinine Ratio 16 Glucose Level 104 70-105 MG/DL Calcium Level 9.4 8.5-10.1 MG/DL Corrected Calcium 9.1 8.5-10.1 MG/DL Total Bilirubin 0.3 0.1-1.0 MG/DL Aspartate Amino Transf (AST/SGOT) 10 5-34 U/L Alanine Aminotransferase (ALT/SGPT) < 6 0-55 U/L Alkaline Phosphatase 46 40-136 U/L C-Reactive Protein High Sensitivity 0.06 0.00-0.50 MG/DL Total Protein 6.5 6.4-8.2 GM/DL Albumin 4.4 3.2-4.5 GM/DL Lipase 21 8-78 U/L Urine Color DARK YELLOW Urine Clarity SL CLOUDY Urine pH 6.5 5-9 Urine Specific Howell 1.020 1.016-1.022 Urine Protein NEGATIVE NEGATIVE Urine Glucose (UA) NEGATIVE NEGATIVE Urine Ketones TRACE H NEGATIVE Urine Nitrite NEGATIVE NEGATIVE Urine Bilirubin NEGATIVE NEGATIVE Urine Urobilinogen 4.0 < = 1.0 MG/DL Urine Leukocyte Esterase NEGATIVE NEGATIVE Urine RBC (Auto) NEGATIVE NEGATIVE Urine RBC NONE /HPF Urine WBC NONE /HPF Urine Squamous Epithelial Cells >50 H /HPF Urine Crystals NONE /LPF Urine Bacteria TRACE /HPF Urine Casts NONE /LPF Urine Mucus NEGATIVE /LPF Urine Culture Indicated NO (DEANDRE EDWARDS MD) My Orders Orders - DEANDRE EDWARDS MD Ua Culture If Indicated (09/07/19 23:38) Cbc With Automated Diff (09/08/19 01:15) Comprehensive Metabolic Panel (09/08/19 01:15) Hs C Reactive Protein (09/08/19 01:15) Lipase (09/08/19 01:15) Ed Iv/Invasive Line Start (09/08/19 01:15) Abdomen, Flat & Upright/Decub (09/08/19 01:15) Ketorolac Injection (Toradol Injection) (09/08/19 02:00) (DEANDRE EDWARDS MD) Medications Given in ED Current Medications Medications Dose Ordered Sig/Delon Route Start Time Stop Time Status Last Admin Dose Admin Ketorolac Tromethamine 15 mg ONCE ONCE IVP 09/08/19 02:00 09/08/19 01:59 DC 09/08/19 01:56 15 MG (DEANDRE EDWARDS MD) Vital Signs/I&O 09/07/19 09/08/19 23:08 01:58 Temp 36.7 36.7 Pulse 71 68 Resp 20 17 B/P (MAP) 97/57 (70) 87/58 (70) Pulse Ox 97 98 O2 Delivery Room Air Room Air (DEANDRE EDWARDS MD) Blood Pressure Mean: 70 Progress Progress Note : Progress Note Labs and x-ray were unremarkable. We discussed options for further workup which included CT. Patient states she is allergic to iodine. CT would need to be done without contrast. We discussed risks and benefits. Risks included cost and radiation exposure. I did express my concern about her pelvic pain in the context of previous cervical cancer. Patient elects to treat pain and returned home. She commits to returning to care if symptoms worsen. Toradol was given for treatment of her pain. (DEANDRE EDWARDS MD) Diagnostic Imaging Diagonstic Imaging: Xray Plain Films/CT/US/NM/MRI: abdomen, pelvis Comments KUB viewed by me. Report not yet available. No constipation or obstruction observed. (DEANDRE EDWARDS MD) Departure Impression Primary Impression: Lower abdominal pain Disposition: HOME, SELF-CARE Condition: Improved Departure-Patient Inst. Decision time for Depature: 01:52 (DEANDRE EDWARDS MD) Referrals: MARIAJOSE MILLER MD (PCP/Family) Primary Care Physician Patient Instructions: Acute Abdomen (Belly Pain), Adult (DC) Add. Discharge Instructions: You may take your usual pain medication and/or ibuprofen up to 400 mg every 6 hours as needed. Return to care if you have worsening symptoms. Observe a clear liquid diet until symptoms improve. Follow-up with your primary care provider soon as possible. All discharge instructions reviewed with patient and/or family. Voiced understanding. Patient was interviewed, seen, and examined by me personally along with JAMARCUS Tse. I agree with MS 4 history, physical, assessment, and documentation with the following additions. Exam: Gen.: Alert, oriented, thin HEENT: normocephalic and atraumatic Heart: Regular rate and rhythm without murmur Lungs: Clear to auscultation bilaterally with normal effort Abdomen: soft, tender across the pelvic region, nondistended, normal bowel sounds Neuropsych: Alert, oriented, no acute distress, no focal deficits (DEANDRE EDWARDS MD) NARCISO ROGERS,MED STUDENT Sep 08, 2019 00:47 DEANDRE EDWARDS MD Sep 08, 2019 01:52
[2019-09-08 01:21] LABS: BASOPHILS % (AUTO) 0 % (0-10); EOSINOPHILS # (AUTO) 0.1 10^3/uL (0.0-0.3); EOSINOPHILS % (AUTO) 1 % (0-10); HEMATOCRIT 39 % (35-52); HEMOGLOBIN 13.5 G/DL (11.5-16.0); LYMPHOCYTES # (AUTO) 1.6 X 10^3 (1.0-4.0); LYMPHOCYTES % (AUTO) 22 % (12-44); MEAN CORPUSCULAR HEMOGLOBIN 30 PG (25-34); MEAN CORPUSCULAR HGB CONC 35 G/DL (32-36); MEAN CORPUSCULAR VOLUME 86 FL (80-99); MEAN PLATELET VOLUME 11.1 FL (7.4-10.4); MONOCYTES # (AUTO) 0.5 X 10^3 (0.0-1.0); MONOCYTES % (AUTO) 6 % (0-12); NEUTROPHILS # (AUTO) 5.3 X 10^3 (1.8-7.8); NEUTROPHILS % (AUTO) 71 % (42-75); PLATELET COUNT 181 10^3/uL (130-400); RED CELL DISTRIBUTION WIDTH 12.9 % (10.0-14.5); WHITE BLOOD COUNT 7.5 10^3/uL (4.3-11.0)
[2019-09-08 01:33] LABS: ALANINE AMINOTRANSFERASE < 6 U/L (0-55); ALBUMIN 4.4 GM/DL (3.2-4.5); ALKALINE PHOSPHATASE 46 U/L (40-136); BILIRUBIN,TOTAL 0.3 MG/DL (0.1-1.0); BUN/CREATININE RATIO 16; CALCIUM 9.4 MG/DL (8.5-10.1); CARBON DIOXIDE 18 MMOL/L (21-32); CHLORIDE 111 MMOL/L (98-107); CREATININE SERUM 0.69 MG/DL (0.60-1.30); GFR ESTIMATED > 60; GLUCOSE 104 MG/DL (70-105); LIPASE 21 U/L (8-78); POTASSIUM 3.8 MMOL/L (3.6-5.0); SODIUM 141 MMOL/L (135-145); TOTAL PROTEIN 6.5 GM/DL (6.4-8.2)
[2019-09-08 01:58] VITALS: BP 87/58
[2019-09-08] MEDS ORDERED: KETOROLAC 30 MG/ML VIAL IVP ONE (02:00)
--- NOTE | 2019-09-08 07:03 | Diagnostic Imaging Report ---
INDICATION: Abdominal and back pain. COMPARISON: None available. FINDINGS: Nonobstructive bowel gas pattern. Small volume of colonic stool is likely physiologic. No features of fecal impaction. No abnormal soft tissue mineralizations that would suggest renal calculi by radiography. No concerning osseous abnormality. Lung bases are clear. IMPRESSION: No acute abnormality by radiography. Dictated by: Dictated on workstation # [id number]
[2019-09-09] MEDS ORDERED: DIVA250T12 (01:43)
[2019-09-09] MEDS ORDERED: PANT40TA3 (01:43)
[2019-09-09] MEDS ORDERED: BUDE10.26 (01:43)
[2019-09-09] MEDS ORDERED: ALBUTEROL (01:43)
[2019-09-09] MEDS ORDERED: MONT10TA26 (01:43)
[2019-09-09] MEDS ORDERED: FLUT16SP22 (01:43)
== END 2019-09-08 01:59 | disposition home or self-care (01) ==
LOC: EDUNIT# 22:53 → ER 22:54
DX: R10.31 Right lower quadrant pain (principal); R10.32 Left lower quadrant pain; F17.210 Nicotine dependence, cigarettes, uncomplicated; Z88.0 Allergy status to penicillin; Z91.040 Latex allergy status; Z88.8 Allergy status to other drugs, medicaments and biological substances; Z88.5 Allergy status to narcotic agent; Z85.41 Personal history of malignant neoplasm of cervix uteri
CPT/HCPCS: 36415; 74019; 80053; 81000; 83690; 85025; 86141

== ENCOUNTER 2019-09-09 01:31 | Emergency (ER) | payer MEDICAID ==
[~2019-09-09] VITALS: Ht 157 cm; Wt 50.0 kg
--- OUTSIDE RECORDS SUMMARY | 2019-09-09 01:38 | XMS REPORT | Continuity of Care Document ---
Author Organization Unknown Address Unknown Phone Unavailable Allergies Active Description Code Type Severity Reaction Onset Reported/Identified Relationship to Patient Clinical Status Yes alprazolam [id number] Drug Allerg y Unknown N/A 05/23/2019 Yes BEES BEES Unknown N/A 05/23/2019 Yes Bleach (Sodium Hypochlorite) [id number] Drug Allergy Unknown N/A 05/23/2019 Yes BODY POWDER BODY POWDER Unknown N/A 05/23/2019 Yes cinnamon [id number] Drug Allergy Unknown N/A 05/23/2019 Yes clonidine [id number] Drug Allergy Unknown N/A 05/23/2019 Yes codeine [id number] Drug Allergy Unknown N/A 05/23/2019 Yes cyclobenzaprine [id number] D rug Allergy Unknown N/A 05/23/2019 Yes FLU SHOT FLU SHOT Un known N/A 05/23/2019 Yes hydrocodone [id number] Drug Aller gy Unknown N/A 05/23/2019 Yes iodine J827296805 Drug Allergy Unknown N/A 05/23/2019 Yes Latex, Natural Rubber [id number] Drug Allergy Unknown N/A 05/23/2019 Yes methocarbamol [id number] Durga g Allergy Unknown N/A 05/23/2019 Yes Penicillins [id number] Drug Aller gy Unknown N/A 05/23/2019 Yes pneumococcal vaccine [id number] Drug Allergy Unknown N/A 05/23/2019 Yes STEROIDS STEROIDS Un known N/A 05/23/2019 Yes tramadol [id number] Drug Allergy Unknown N/A 05/23/2019 Yes WASP [...] Johnathan Ot J45.909 UNSPECIFIED ASTHMA, UNCOMPLICATED 05/23/2019 SACATON DOJENNIFFER Ot K21. 9 GASTRO-ESOPHAGEAL REFLUX DISEASE WITHOUT 05/23/2019 SHARMA DOJENNIFFER Ot K35. 80 UNSPECIFIED ACUTE APPENDICITIS 05/23/2019 SHARMA DOJENNIFFER Ot N83.201 UNSPECIFIED OVARIAN CYST, RIGHT SIDE 05/23/2019 SHARMA DOJENNIFFER Ot N83.202 UNSPECIFIED OVARIAN CYST, LEFT SIDE 05/23/2019 SHARMA JENNIFFER SUNG Ot Z79.899 OTHER [facility] (CURRENT) DRUG THERAPY 05/23/2019 SHARMA JENNIFFER SUNG Ot Z88. 0 ALLERGY STATUS TO PENICILLIN 05/23/2019 SHARMA DOJENNIFFER Ot Z88. 5 ALLERGY STATUS TO NARCOTIC AGENT STATUS 05/23/2019 SHARMA JENNIFFER SUNG Ot Z91.040 LATEX ALLERGY STATUS 06/03/2019 SHARMA JENNIFFER SUNG Ot E11. 9 TYPE 2 DIABETES MELLITUS WITHOUT COMPLIC 06/03/2019 SHARMA JENNIFFER USNG Ot F17.210 NICOTINE DEPENDENCE, CIGARETTES, UNCOMPL 06/03/2019 [...] SHARMA DO, JENNIFFER D Ot Z79.899 OTHER [facility] (CURRENT) DRUG THERAPY 06/03/2019 SHARMA DO, JENNIFFER D Ot Z88. 0 ALLERGY STATUS TO PENICILLIN 06/03/2019 SACATON DO, JENNIFFER D Ot Z88. 5 ALLERGY STATUS TO NARCOTIC AGENT STATUS 06/03/2019 SACATON DO, JENNIFFER D Ot Z91.040 LATEX ALLERGY STATUS 06/05/2019 SHARMA DO, JENNIFFER D Ot E11. 9 TYPE 2 DIABETES MELLITUS WITHOUT COMPLIC 06/05/2019 SHARMA DO, JENNIFFER D Ot F17.210 NICOTINE DEPENDENCE, CIGARETTES, UNCOMPL 06/05/2019 SHARMA DO, JENNIFFER D Ot F20. 9 SCHIZOPHRENIA, UNSPECIFIED 06/05/2019 [facility], JENNIFFER D Ot F31. 9 BIPOLAR DISORDER, UNSPECIFIED 06/05/2019 [facility], JENNIFFER D Ot F90. 9 ATTENTION-DEFICIT HYPERACTIVITY DISORDER 06/05/2019 SHARMA DO, JENNIFFER D Ot G40.909 EPILEPSY, UNSP, NOT INTRACTABLE, WITHOUT 06/05/2019 SHARMA DO, JENNIFFER D Ot J45.909 UNSPECIFIED ASTHMA, UNCOMPLICATED 06/05/2019 [facility], JENNIFFER D Ot K21. 9 GASTRO-ESOPHAGEAL REFLUX DISEASE WITHOUT 06/05/2019 SHARMA DO, JENNIFFER D Ot K35. 80 UNSPECIFIED ACUTE APPENDICITIS 06/05/2019 SHARMA DO, JENNIFFER D Ot N83.201 UNSPECIFIED OVARIAN CYST, RIGHT SIDE 06/05/2019 SHARMA DO, JENNIFFER D Ot N83.202 UNSPECIFIED OVARIAN CYST, LEFT SIDE 06/05/2019 SHARMA DO, JENNIFFER D Ot Z79.899 OTHER [facility] (CURRENT) DRUG THERAPY 06/05/2019 SHARMA DO, JENNIFFER D Ot Z88. 0 ALLERGY STATUS TO PENICILLIN 06/05/2019 SHARMA DO, JENNIFFER D Ot Z88. 5 ALLERGY STATUS TO NARCOTIC AGENT STATUS 06/05/2019 SHARMA DO, JENNIFFER D Ot Z91.040 LATEX ALLERGY STATUS 06/15/2019 [facility], JENNIFFER D Ot E11. 9 TYPE 2 DIABETES MELLITUS WITHOUT COMPLIC 06/15/2019 SHARMA DO, JENNIFFER D Ot F17.210 NICOTINE DEPENDENCE, CIGARETTES, UNCOMPL 06/15/2019 SACATON DO, JENNIFFER D Ot F20. 9 SCHIZOPHRENIA, UNSPECIFIED 06/15/2019 SACATON DO, JENNIFFER D Ot F31. 9 BIPOLAR DISORDER, UNSPECIFIED 06/15/2019 [facility], JENNIFFER D Ot F90. 9 ATTENTION-DEFICIT HYPERACTIVITY DISORDER 06/15/2019 [facility], JENNIFFER D Ot G40.909 EPILEPSY, UNSP, NOT INTRACTABLE, WITHOUT 06/15/2019 [facility], JENNIFFER D Ot J45.909 UNSPECIFIED ASTHMA, UNCOMPLICATED 06/15/2019 SHARMA DO JENNIFFER D Ot K21. 9 GASTRO-ESOPHAGEAL REFLUX DISEASE WITHOUT 06/15/2019 [facility], JENNIFFER D Ot K35. 80 UNSPECIFIED ACUTE APPENDICITIS 06/15/2019 SHARMA DO JENNIFFER D Ot N83.201 UNSPECIFIED OVARIAN CYST, RIGHT SIDE 06/15/[facility] N83.202 UNSPECIFIED OVARIAN CYST, LEFT SIDE 06/15/2019 [facility], JENNIFFER D Ot Z79.899 OTHER [facility] (CURRENT) DRUG THERAPY 06/15/2019 SHARMA DOHECTORTT D Ot Z88. 0 ALLERGY STATUS TO PENICILLIN 06/15/2019 [facility], JENNIFFER D Ot Z88. 5 ALLERGY STATUS TO NARCOTIC AGENT STATUS 06/15/2019 [facility] JENNIFFER D Ot Z91.040 LATEX ALLERGY STATUS [...] 7-25 CREATININE 0.58 mg/dL 0.50-1.10 eGFR NON-AFR. FILIPINO 119 mL/min/1.73m2 > OR = 60 eGFR [...] 4.7 % of total Hgb <5.7 Complete blood count (CBC) with automate d white blood cell (WBC) differential - 09/07/19 23:15 Blood leukocytes automated count (number/volume) 7.5 10*3/uL 4.3-11.0 Blood erythrocytes automated count (number/volume) 4.52 10*6/uL 4.35-5.85 Venous blood hemoglobin measurement (mass/volume) 13.5 g/dL 11.5-16.0 Blood hematocrit (volume fraction) 39 % 35-52 Automated erythrocyte mean corpuscular volume 86 [ foz_us] 80-99 Automated erythrocyte mean corpuscular h emoglobin (mass per erythrocyte) 30 pg 25-34 Automated erythrocyte mean corpuscular h emoglobin concentration measurement (mass/volume) 35 g/dL 32-36 Automated erythrocyte distribution width ratio 12. 9 % 10.0- 14.5 Automated blood platelet count (count/volume) 181 10*3/uL 130-400 Automated blood platelet mean volume measurement 11.1 [foz_us] 7.4-10.4 Automated blood neutrophils/100 leukocytes 71 % 42-75 Automated blood lymphocytes/100 leukocytes 22 % 12-44 Blood monocytes/100 leukocytes 6 % 0-12 Automated blood eosinophils/100 leukocytes 1 % 0-10 Automated blood basophils/100 leukocytes 0 % 0-10 Blood neutrophils automated count (number/volume) 5.3 10*3 1.8-7.8 Blood lymphocytes automated count (number/volume) 1.6 10*3 1.0-4.0 Blood monocytes automated count (number/volume) 0. 5 10*3 0.0-1.0 Automated eosinophil count 0.1 10*3/uL 0 .0-0.3 Automated blood basophil count (count/volume) 0.0 10*3/uL 0.0-0.1 Comprehensive metabolic panel - 09/07/19 23:15 Serum or plasma sodium measurement (moles/volume) 141 mmol/L 135-145 Serum or plasma potassium measurement (moles/volume) 3.8 mmol/L 3.6-5.0 Serum or plasma chloride measurement (moles/volume) 111 mmol/L 98-107 Carbon dioxide 18 mmol/L 21-32 Serum or plasma anion gap determination (moles/volume) 12 mmol/L 5-14 Serum or plasma urea nitrogen measurement (mass/volume ) 11 mg/dL 7-18 Serum or plasma creatinine measurement (mass/volume) 0.69 mg/dL 0.60-1.30 Serum or plasma urea nitrogen/creatinine mass ratio 16 NRG Serum or plasma creatinine measurement w ith calculation of estimated glomerular filtration rate > NRG Serum or plasma glucose measurement (mass/volume) 104 mg/dL 70-105 Serum or plasma calcium measurement (mass/volume) 9.4 mg/dL 8.5-10.1 Serum or plasma total bilirubin measurement (mass/volu me) 0.3 mg/dL 0.1-1.0 Serum or plasma alkaline phosphatase narciso surement (enzymatic activity/volume) 46 U/L 40-136 Serum or plasma aspartate aminotransfera se measurement (enzymatic activity/volume) 10 U/L 5-34 Serum or plasma alanine aminotransferase measurement (enzymatic activity/volume) < U/L 0-55 Serum or plasma protein measurement (mass/volume) 6.5 g/dL 6.4-8.2 Serum or plasma albumin measurement (mass/volume) 4.4 g/dL 3.2-4.5 CALCIUM CORRECTED 9.1 mg/dL 8.5-10.1 Lipase - 09/07/19 23:15 Lipase 21 U/L 8-78 Serum or plasma C reactive protein measu rement (mass/volume) - 09/07/19 23:15 Serum or plasma C reactive protein measurement (mass/v olume) 0.06 mg/dL 0.00-0.50 Complete urinalysis with reflex to cultu re [...] ketones detection by automated test strip TR VON NEGATIVE Urine nitrite detection by test strip [...] Status Pt. Type Provider Facility Loc./Unit Complaint [id number] 08/20/2019 14:30:32 08/20/2019 23:59: 59 CLS Outpatient Humberto Juarezitya [id number] 08/04/2019 13:56:32 08/04/2019 23:59: 59 CLS Outpatient LitanamMickey quiroz [id number] 07/29/2019 09:51:24 07/29/2019 23:59: 59 CLS Outpatient Humberto Juarezitya [id number] 07/28/2019 11:07:37 07/28/2019 23:59: 59 CLS Outpatient Humberto Juarezitya [id number] 07/23/2019 12:40:22 07/23/2019 23:59: 59 CLS Outpatient Litcristina Mickey [id number] 07/17/2019 10:27:22 07/17/2019 23:59: 59 CLS Outpatient LitMickey evans [id number] 07/13/2019 10:37:03 07/13/2019 23:59: 59 CLS Outpatient Humberto Juarezitya [id number] 07/09/2019 12:13:46 07/09/2019 23:59: 59 CLS Outpatient Litanamgabriella Mickey [id number] 06/29/2019 11:24:10 06/29/2019 23:59: 59 CLS Outpatient LitMickey evans [id number] 02/27/2019 13:46:57 02/27/2019 23:59: 59 CLS Outpatient CaputoJoseBatsheva [id number] 02/08/2019 13:56:54 02/08/2019 23:59: 59 CLS Outpatient Yadira Balderas [id number] 01/22/2019 10:20:16 01/22/2019 23:59: 59 CLS Outpatient Mickey Patel [id number] 01/07/2019 10:47:32 01/07/2019 23:59: 59 CLS Outpatient Aristeo Rangel [id number] 12/02/2018 09:54:22 12/02/2018 23:59: 59 CLS Outpatient Mickey Patel [id number] 11/03/2018 15:37:38 11/03/2018 23:59: 59 CLS Outpatient Mickey Patel [id number] 10/15/2018 10:59:09 10/15/2018 23:59: 59 CLS Outpatient Mickey Patel [id number] 09/04/2018 09:37:13 09/04/2018 23:59: 59 CLS Outpatient HetlingerMickey [id number] 07/31/2018 15:12:57 07/31/2018 23:59: 59 CLS Outpatient HetlingerMickey [id number] 07/10/2018 09:18:04 07/10/2018 23:59: 59 CLS Outpatient LitlingerMickey [id number] 06/24/2018 10:43:23 06/24/2018 23:59: 59 CLS Outpatient HetlingerMickye [id number] 06/04/2018 11:20:22 06/04/2018 23:59: 59 CLS Outpatient Yadira Balderas [id number] 05/06/2018 15:32:30 05/06/2018 23:59: 59 CLS Outpatient HetlingerMickey [id number] 04/03/2018 09:37:50 04/03/2018 23:59: 59 CLS Outpatient LitlingerMickey [id number] 03/20/2018 11:11:28 03/20/2018 23:59: 59 CLS Outpatient HetlingerMickey [id number] 03/11/2018 10:50:55 03/11/2018 23:59: 59 CLS Outpatient Laura Ferdinand [id number] 02/18/2018 13:28:03 02/18/2018 23:59: 59 CLS Outpatient HetlingerMickey [id number] 02/10/2018 10:51:33 02/10/2018 23:59: 59 CLS Outpatient LitlingerMickey [id number] 12/20/2017 14:19:13 12/20/2017 23:59: 59 CLS Outpatient Laura Ferdinand [id number] 12/10/2017 14:32:02 12/10/2017 23:59: 59 CLS Outpatient LtilingerMickey [id number] 12/03/2017 12:57:15 12/03/2017 23:59: 59 CLS Outpatient Renetta Parson [id number] 11/20/2017 14:04:08 11/20/2017 23:59: 59 CLS Outpatient Laura Ferdinand [id number] 09/30/2017 17:19:48 09/30/2017 23:59: 59 CLS Outpatient HetlingerMickey [id number] 09/13/2017 12:27:47 09/13/2017 23:59: 59 CLS Outpatient Juarez, Ferdinand [id number] 09/10/2017 14:29:38 09/10/2017 23:59: 59 CLS Outpatient HetlingerMickey [id number] 09/03/2017 14:05:51 09/03/2017 23:59: 59 CLS Outpatient Caroline Crystal [id number] 08/29/2017 09:24:21 08/29/2017 23:59: 59 CLS Outpatient LitlingerMickey [id number] 08/02/2017 09:47:02 08/02/2017 23:59: 59 CLS Outpatient Juarez, Ferdinand [id number] 07/05/2017 10:07:35 07/05/2017 23:59: 59 CLS Outpatient Humberto Juarezitya [id number] 07/01/2017 14:31:22 07/01/2017 23:59: 59 CLS Outpatient HetlingerMickey [id number] 05/23/2017 10:13:42 05/23/2017 23:59: 59 CLS Outpatient HetlingerMickey [id number] 05/09/2017 11:24:04 05/09/2017 23:59: 59 CLS Outpatient HetlingerMickey [id number] 05/02/2017 10:38:44 05/02/2017 23:59: 59 CLS Outpatient Laura Ferdinand [id number] 04/04/2017 10:18:56 04/04/2017 23:59: 59 CLS Outpatient HetlingerMickey [id number] 03/19/2017 14:48:27 03/19/2017 23:59: 59 CLS Outpatient HetlingerMickey [id number] 03/11/2017 11:48:50 03/11/2017 23:59: 59 CLS Outpatient AndreyYadira [id number] 02/20/2017 10:52:16 02/20/2017 23:59: 59 CLS Outpatient Litlinger Mickey [id number] 02/20/2017 09:46:45 02/20/2017 23:59: 59 CLS Outpatient Juarez Ferdinand [id number] 01/30/2017 15:43:51 01/30/2017 23:59: 59 CLS Outpatient Yadira Balderas [id number] 01/09/2017 09:57:07 01/09/2017 23:59: 59 CLS Outpatient Laura Ferdinand [id number] 01/08/2017 09:33:15 01/08/2017 23:59: 59 CLS Outpatient LitlingerMickey [id number] 12/28/2016 10:42:30 12/28/2016 23:59: 59 CLS Outpatient Yadira Balderas [id number] 12/19/2016 11:53:01 12/19/2016 23:59: 59 CLS Outpatient Mickey Patel [id number] 12/12/2016 11:17:08 12/12/2016 23:59: 59 CLS Outpatient Mickey Patel [id number] 11/29/2016 16:13:40 11/29/2016 23:59: 59 CLS Outpatient Ferdinand Juarez [id number] 10/17/2016 11:41:04 10/17/2016 23:59: 59 CLS Outpatient Mickey Patel [id number] 10/13/2016 11:59:53 10/13/2016 23:59: 59 CLS Outpatient Miriam Ireland [id number] 10/12/2016 18:00:26 10/12/2016 23:59: 59 CLS Outpatient ClaireAristeo [id number] 10/02/2016 10:37:18 10/02/2016 23:59: 59 CLS Outpatient Mickey Patel [id number] 09/05/2016 10:45:51 09/05/2016 23:59: 59 CLS Outpatient Mickey Patel [id number] 08/27/2016 16:18:10 08/27/2016 23:59: 59 CLS Outpatient Mickey Patel [id number] 08/21/2016 18:04:56 08/21/2016 23:59: 59 CLS Outpatient Miriam Ireland [id number] 08/26/2013 16:37:35 08/26/2013 23:59: 59 CLS Outpatient Andres Cook [id number] 07/26/2013 21:10:03 07/26/2013 23:59: 59 CLS Outpatient Kristi Fierro [id number] 07/26/2013 21:07:42 07/26/2013 23:59: 59 CLS Outpatient Andres Cook [id number] 07/09/2013 16:06:37 07/09/2013 23:59: 59 CLS Outpatient Andres Cook [id number] 06/29/2013 15:13:43 06/29/2013 23:59: 59 CLS Outpatient Andres Cook [id number] 06/04/2013 11:38:01 06/04/2013 23:59: 59 CLS Outpatient Andres Cook [id number] 04/09/2013 15:44:05 04/09/2013 23:59: 59 CLS Outpatient Andres Cook [id number] 07/22/2019 13:00:00 07/22/2019 23:59: 59 CLS Outpatient BRIEN BRIZUELA [facility] [id number] 07/10/2019 09:00:00 Document Registration [id number] 03/22/2019 12:05:00 Document Registration [id number] 08/10/2019 13:11:00 23:59:59 CLS Outpatient JUAREZ DO FERDINAND [facility] RAD BALANCE DISORDER, FALLS FREQUENTLY [id number] 05/23/2019 18:50:00 020 21:00:00 DIS Outpatient JENNIFFER SHARMA DO [facility] R SIDE ABD PAIN, N/V [id number] 11/11/2012 17:15:00 013 21:35:00 DIS Outpatient XANDER BRANDT DO S [facility] D[place] [id number] 11/09/2012 20:19:00 013 23:36:00 DIS Emergency [id number] 09/08/2019 00:01:00 Document Registration
[2019-09-09] MEDS ORDERED: LACTATED RINGERS 1,000 ML IV ONE (01:41)
[2019-09-09] MEDS ORDERED: DIVA250T12 (01:43)
[2019-09-09] MEDS ORDERED: PANT40TA3 (01:43)
[2019-09-09] MEDS ORDERED: BUDE10.26 (01:43)
[2019-09-09] MEDS ORDERED: FLUT16SP22 (01:43)
[2019-09-09] MEDS ORDERED: ALBUTEROL (01:43)
[2019-09-09] MEDS ORDERED: MONT10TA26 (01:43)
--- NOTE | 2019-09-09 01:50 | ED Abdominal Pain ---
General Chief Complaint: Abdominal/GI Problems Stated Complaint: ABD PAIN Source of Information: Patient, EMS Exam Limitations: No Limitations History of Present Illness Date Seen by Provider: Sep 09, 2019 Time Seen by Provider: 01:36 Initial Comments Here with report of lower abdominal pain. States pain started last night was actually seen here last night. Had labs drawn as well as UA and abdominal x-ray. No acute findings noted and patient was sent home. She is apparently better after she had a dose of Toradol last night but then worsened after she got home. She did have a bowel movement this evening and states that it almost caused her to scream in pain. Denies blood in her stool. States it was soft and hard but that's normal. She is on chronic pain medicine due to low back pain and scoliosis. Denies nausea or vomiting. She's had some left-sided weakness and problems that have been going on since May. She has seen her provider regarding that and had MRI of the brain and July. That showed no brain problems but did have some fluid in the right mastoid area. Denies injury. Denies blood in her urine. She had reported to EMS that this all started last night after eating chili cheese tots with onions. Timing/Duration: 24 Hours Severity/Quality: Moderate, Severe Location: Other (lower abdomen) Radiation: No Radiation Activities at Onset: None Modifying Factors: Worsens With Defecating Associated Symptoms: No Back Pain, No Chest Pain, No Fever/Chills, No Nausea/Vomiting, No Shortness of Air, No Weakness Allergies and Home Medications Allergies Coded Allergies: Bleach (Sodium Hypochlorite) (Unverified Allergy, Unknown, 05/23/19) Latex, Natural Rubber (Unverified Allergy, Unknown, 05/23/19) Penicillins (Verified Allergy, Unknown, 05/23/19) alprazolam (Unverified Allergy, Unknown, 05/23/19) cinnamon (Unverified Allergy, Unknown, 05/23/19) clonidine (Verified Allergy, Unknown, 05/23/19) codeine (Verified Allergy, Unknown, 05/23/19) cyclobenzaprine (Unverified Allergy, Unknown, 05/23/19) hydrocodone (Verified Allergy, Unknown, 05/23/19) iodine (Verified Allergy, Unknown, 05/23/19) RASH methocarbamol (Unverified Allergy, Unknown, 05/23/19) pneumococcal vaccine (Unverified Allergy, Unknown, 05/23/19) tramadol (Unverified Allergy, Unknown, 05/23/19) Uncoded Allergies: BEES (Allergy, Unknown, 05/23/19) BODY POWDER (Allergy, Unknown, 05/23/19) FLU SHOT (Allergy, Unknown, 05/23/19) STEROIDS (Allergy, Unknown, 05/23/19) WASP (Allergy, Unknown, 05/23/19) Home Medications Hydrocodone Bit/Acetaminophen 1 Tab Tab, 1-2 TAB PO Q6H PRN for PAIN-MODERATE Prescribed by: JENNIFFER SHARMA on 05/23/19 6521 Patient Home Medication List Home Medication List Reviewed: Yes Review of Systems Review of Systems Constitutional: see HPI; No chills, No fever EENTM: No Symptoms Reported Respiratory: No Symptoms Reported Cardiovascular: No Symptoms Reported Gastrointestinal: Abdominal Pain; Denies Diarrhea, Denies Nausea, Denies Rectal Bleeding Genitourinary: Denies Flank Pain, Denies Hematuria, Denies Incontinence, Denies Pain Musculoskeletal: back pain; No neck pain Skin: no symptoms reported Psychiatric/Neurological: No Symptoms Reported All Other Systems Reviewed Negative Unless Noted: Yes Past [id number] Hx Past Med/Social Hx: Reviewed Nursing Past Med/Soc Hx Patient Social History Alcohol Use: Denies Use Recreational Drug Use: No Smoking Status: Current Everyday Smoker Type Used: Cigarettes Past Medical History Surgeries: Yes (BMT) Adenoidectomy, Hysterectomy, Tonsillectomy Respiratory: Yes Asthma Cardiac: No Neurological: No Reproductive Disorders: No Female Reproductive Disorders: Menstrual Problems, Ovarian Cyst Sexually Transmitted Disease: No HIV/AIDS: No Bladder Infection Gastrointestinal: No Gastroesophageal Reflux Musculoskeletal: No Endocrine: Yes (HYPOGLYCEMIC. ) Diabetes, Non-Insulin dep Cancer: Yes Cervical Psychosocial: Yes ADD/ADHD, Anxiety, Bipolar, Schizophrenia, Depression Integumentary: No Blood Disorders: Yes (ANEMIA) Family Medical History Reviewed Nursing Family Hx No Pertinent Family Hx Physical Exam Vital Signs Vital Signs - First Documented 09/09/19 01:33 Temp 37.2 Pulse 75 Resp 18 B/P (MAP) 93/59 (70) Pulse Ox 100 O2 Delivery Room Air Capillary Refill : Height/Weight/BMI Height: '" Weight: 97lbs. oz. 43.129195hs; 20.00 BMI Method:Stated General Appearance: WD/WN, no apparent distress HEENT: PERRL/EOMI, pharynx normal Neck: full range of motion, supple Respiratory: lungs clear, normal breath sounds Cardiovascular: regular rate, rhythm, no murmur Gastrointestinal: normal bowel sounds, soft, tenderness (suprapubic) Extremities: non-tender, normal inspection Back: normal inspection, no CVA tenderness, no vertebral tenderness Neurologic/Psychiatric: alert, oriented x 3 Skin: normal color, warm/dry Progress/Results/Core Measures Results/Orders Lab Results Laboratory Tests Test 09/09/19 01:43 09/09/19 02:00 Range/Units Urine Color YELLOW Urine Clarity SL CLOUDY Urine pH 7.0 5-9 Urine Specific [place] 1.025 H 1.016-1.022 Urine Protein NEGATIVE NEGATIVE Urine Glucose (UA) NEGATIVE NEGATIVE Urine Ketones NEGATIVE NEGATIVE Urine Nitrite NEGATIVE NEGATIVE Urine Bilirubin NEGATIVE NEGATIVE Urine Urobilinogen 2.0 < = 1.0 MG/DL Urine Leukocyte Esterase NEGATIVE NEGATIVE Urine RBC (Auto) NEGATIVE NEGATIVE Urine RBC NONE /HPF Urine WBC NONE /HPF Urine Squamous Epithelial Cells 10-25 H /HPF Urine Crystals NONE /LPF Urine Bacteria TRACE /HPF Urine Casts NONE /LPF Urine Mucus NEGATIVE /LPF Urine Culture Indicated NO Urine Opiates Screen NEGATIVE NEGATIVE Urine Oxycodone Screen NEGATIVE NEGATIVE Urine Methadone Screen NEGATIVE NEGATIVE Urine Propoxyphene Screen NEGATIVE NEGATIVE Urine Barbiturates Screen NEGATIVE NEGATIVE Ur Tricyclic Antidepressants Screen NEGATIVE NEGATIVE Urine Phencyclidine Screen NEGATIVE NEGATIVE Urine Amphetamines Screen NEGATIVE NEGATIVE Urine Methamphetamines Screen NEGATIVE NEGATIVE Urine Benzodiazepines Screen NEGATIVE NEGATIVE Urine Cocaine Screen NEGATIVE NEGATIVE Urine Cannabinoids Screen NEGATIVE NEGATIVE White Blood Count 7.6 4.3-11.0 10^3/uL Red Blood Count 4.47 4.35-5.85 10^6/uL Hemoglobin 13.2 11.5-16.0 G/DL Hematocrit 39 35-52 % Mean Corpuscular Volume 87 80-99 FL Mean Corpuscular Hemoglobin 30 25-34 PG Mean Corpuscular Hemoglobin Concent 34 32-36 G/DL Red Cell Distribution Width 12.6 10.0-14.5 % Platelet Count 118 L 130-400 10^3/uL Mean Platelet Volume 10.8 H 7.4-10.4 FL Neutrophils (%) (Auto) 70 42-75 % Lymphocytes (%) (Auto) 20 12-44 % Monocytes (%) (Auto) 8 0-12 % Eosinophils (%) (Auto) 2 0-10 % Basophils (%) (Auto) 0 0-10 % Neutrophils # (Auto) 5.3 1.8-7.8 X 10^3 Lymphocytes # (Auto) 1.5 1.0-4.0 X 10^3 Monocytes # (Auto) 0.6 0.0-1.0 X 10^3 Eosinophils # (Auto) 0.2 0.0-0.3 10^3/uL Basophils # (Auto) 0.0 0.0-0.1 10^3/uL Sodium Level 138 135-145 MMOL/L Potassium Level 3.9 3.6-5.0 MMOL/L Chloride Level 109 H 98-107 MMOL/L Carbon Dioxide Level 18 L 21-32 MMOL/L Anion Gap 11 5-14 MMOL/L Blood Urea Nitrogen 7 7-18 MG/DL Creatinine 0.67 0.60-1.30 MG/DL Estimat Glomerular Filtration Rate > 60 BUN/Creatinine Ratio 10 Glucose Level 91 70-105 MG/DL Calcium Level 9.0 8.5-10.1 MG/DL Corrected Calcium 8.8 8.5-10.1 MG/DL Total Bilirubin 0.5 0.1-1.0 MG/DL Aspartate Amino Transf (AST/SGOT) 10 5-34 U/L Alanine Aminotransferase (ALT/SGPT) < 6 0-55 U/L Alkaline Phosphatase 51 40-136 U/L C-Reactive Protein High Sensitivity 0.26 0.00-0.50 MG/DL Total Protein 6.4 6.4-8.2 GM/DL Albumin 4.2 3.2-4.5 GM/DL My Orders Orders - BRYAN HUTCHINSON MD Cbc With Automated Diff (09/09/19 01:41) Comprehensive Metabolic Panel (09/09/19 01:41) Hs C Reactive Protein (09/09/19 01:41) Drug Screen Stat (Urine) (09/09/19 01:41) Ua Culture If Indicated (09/09/19 01:41) Ed Iv/Invasive Line Start (09/09/19 01:41) Lactated Ringers (Lr 1000 Ml Iv Solution (09/09/19 01:41) Ct Abd/Pelvis Wo(Kidney Stone) (6/17/20 01:44) Medications Given in ED Current Medications Medications Dose Ordered Sig/Delon Route Start Time Stop Time Status Last Admin Dose Admin Lactated Ringer's 1,000 ml @ 0 mls/hr Q0M ONCE IV 09/09/19 01:41 09/09/19 01:44 DC 09/09/19 02:01 0 MLS/HR Vital Signs/I&O 09/09/19 01:33 Temp 37.2 Pulse 75 Resp 18 B/P (MAP) 93/59 (70) Pulse Ox 100 O2 Delivery Room Air Progress Progress Note : Progress Note Seen and evaluated. We reviewed history including no from last night. CT was discussed with the patient at that time but she elected for conservative therapy and going home. She is instructed return for worsening which she has done now. We will go ahead and get CT. Patient is allergic to iodine so will be without contrast. IV, labs and UA ordered. Monitor patient. 0301: CT results reviewed. Labs reviewed and compared to previous. CT does show what appears to be a right hemorrhagic ovarian cyst. This can be followed outpatient. This was discussed with the patient who agrees. Discharged home with return precautions. Patient verbalize understanding instructions and agreement with plan. Diagnostic Imaging Diagonstic Imaging: CT Plain Films/CT/US/NM/MRI: abdomen, pelvis Comments Questionable hemorrhagic cyst in the right adnexa measuring 2.5 cm. No free fluid. Otherwise unremarkable exam. Reviewed: Reviewed [facility] Study Departure Impression Primary Impression: Lower abdominal pain Additional Impression: Right ovarian cyst Disposition: HOME, SELF-CARE Condition: Stable Departure-Patient Inst. Decision time for Depature: 03:04 Referrals: MARIAJOSE MILLER MD (PCP/Family) Primary Care Physician Patient Instructions: Acute Abdomen (Belly Pain), Adult (DC), Ovarian Cyst (DC) Add. Discharge Instructions: All discharge instructions reviewed with patient and/or family. Voiced understanding. Follow up with your doctor in the next few days for recheck and further evaluation and to discuss the need for ultrasound if indicated. You did have question of hemorrhagic cyst in the right ovary that is approximately 2.5 cm. Continue home medications as previously prescribed. Return for worse pain especially in the lower abdomen, fever, vomiting, weakness, breathing problems or other concerns as needed. BRYAN HUTCHINSON MD Sep 09, 2019 01:50
[2019-09-09 01:52] LABS: BILIRUBIN,URINE NEGATIVE (NEGATIVE); CLARITY,URINE SL CLOUDY; COLOR,URINE YELLOW; GLUCOSE, URINE (UA) NEGATIVE (NEGATIVE); KETONES,URINE NEGATIVE (NEGATIVE); LEUKOCYTE ESTERASE ,URINE NEGATIVE (NEGATIVE); NITRITE,URINE NEGATIVE (NEGATIVE); PROTEIN,URINE NEGATIVE (NEGATIVE)
[2019-09-09 02:04] LABS: BACTERIA,URINE TRACE /HPF
[2019-09-09 02:08] LABS: BASOPHILS % (AUTO) 0 % (0-10); EOSINOPHILS # (AUTO) 0.2 10^3/uL (0.0-0.3); EOSINOPHILS % (AUTO) 2 % (0-10); HEMATOCRIT 39 % (35-52); HEMOGLOBIN 13.2 G/DL (11.5-16.0); LYMPHOCYTES # (AUTO) 1.5 X 10^3 (1.0-4.0); LYMPHOCYTES % (AUTO) 20 % (12-44); MEAN CORPUSCULAR HEMOGLOBIN 30 PG (25-34); MEAN CORPUSCULAR HGB CONC 34 G/DL (32-36); MEAN CORPUSCULAR VOLUME 87 FL (80-99); MEAN PLATELET VOLUME 10.8 FL (7.4-10.4); MONOCYTES # (AUTO) 0.6 X 10^3 (0.0-1.0); MONOCYTES % (AUTO) 8 % (0-12); NEUTROPHILS # (AUTO) 5.3 X 10^3 (1.8-7.8); NEUTROPHILS % (AUTO) 70 % (42-75); PLATELET COUNT 118 10^3/uL (130-400); RED CELL DISTRIBUTION WIDTH 12.6 % (10.0-14.5); WHITE BLOOD COUNT 7.6 10^3/uL (4.3-11.0)
[2019-09-09 02:14] LABS: ALBUMIN 4.2 GM/DL (3.2-4.5); CHLORIDE 109 MMOL/L (98-107); POTASSIUM 3.9 MMOL/L (3.6-5.0); SODIUM 138 MMOL/L (135-145)
[2019-09-09 02:17] LABS: AMPHETAMINE SCREEN, URINE NEGATIVE (NEGATIVE); BARBITURATE SCREEN URINE NEGATIVE (NEGATIVE); BENZODIAZEPINES SCREEN URINE NEGATIVE (NEGATIVE); CANNABINOID SCREEN, URINE NEGATIVE (NEGATIVE); COCAINE SCREEN URINE NEGATIVE (NEGATIVE); METHADONE STAT NEGATIVE (NEGATIVE); METHAMPHETAMINE SCREEN URINE S NEGATIVE (NEGATIVE); OPIATE SCREEN URINE NEGATIVE (NEGATIVE); OXYCODONE STAT NEGATIVE (NEGATIVE); PROPOXYPHENE STAT NEGATIVE (NEGATIVE); TRICYCLIC ANTIDEPRESSANTS SCRE NEGATIVE (NEGATIVE)
[2019-09-09 02:17] LABS: GLUCOSE 91 MG/DL (70-105); TOTAL PROTEIN 6.4 GM/DL (6.4-8.2)
[2019-09-09 02:18] LABS: BILIRUBIN,TOTAL 0.5 MG/DL (0.1-1.0); CARBON DIOXIDE 18 MMOL/L (21-32)
[2019-09-09 02:20] LABS: ALKALINE PHOSPHATASE 51 U/L (40-136); CREATININE SERUM 0.67 MG/DL (0.60-1.30); GFR ESTIMATED > 60
[2019-09-09 02:21] LABS: BUN/CREATININE RATIO 10
[2019-09-09 02:23] LABS: ALANINE AMINOTRANSFERASE < 6 U/L (0-55)
[2019-09-09] MEDS ORDERED: KETOROLAC 30 MG/ML VIAL IVP STA (03:00)
[2019-09-09] MEDS ORDERED: HYDROcodone/APAP 7.5 MG/325 MG (LORTAB, LORCET PLUS) TABLET PO STA (03:00)
[2019-09-09 03:13] VITALS: BP 102/72
--- NOTE | 2019-09-09 06:59 | Diagnostic Imaging Report ---
PROCEDURE: CT urinary tract, rule out kidney stone. TECHNIQUE: Multiple contiguous axial images were obtained through the abdomen and pelvis without the use of intravenous contrast. Auto Exposure Controls were utilized during the CT exam to meet ALARA standards for radiation dose reduction. INDICATION: Abdominal pain. COMPARISON: Abdominal radiograph 09/08/2019. CT abdomen pelvis without contrast 05/23/2019. FINDINGS: Lung bases are clear. The liver, gallbladder, pancreas, spleen, adrenals, kidneys, collecting systems and decompressed bladder are negative on this noncontrast exam. Appendectomy. Hysterectomy. There is a poorly characterized fluid collection in the dependent pelvis measuring approximately 2.5 x 3.4 cm. The ovaries are otherwise not identified. No free intraperitoneal air. No evidence of bowel obstruction. No lymphadenopathy. 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 No acute osseous findings. IMPRESSION: 1. Ill-defined indeterminate fluid collection dependently in the pelvis. Although the patient has had a hysterectomy, this could represent a small hemorrhagic cyst. Although there is some free fluid seen on the prior exam, this fluid collection is new since 05/23/2019. Further characterization with pelvic ultrasound may be helpful. No free intraperitoneal air. No evidence of bowel obstruction. 2. Appendectomy. Dictated by: Dictated on workstation # [id number]
== END 2019-09-09 03:13 | disposition home or self-care (01) ==
LOC: EDUNIT# 01:31 → ER 01:32
DX: N83.201 Unspecified ovarian cyst, right side (principal); E11.649 Type 2 diabetes mellitus with hypoglycemia without coma; F17.210 Nicotine dependence, cigarettes, uncomplicated; Z91.040 Latex allergy status; Z88.0 Allergy status to penicillin; Z88.5 Allergy status to narcotic agent; Z88.8 Allergy status to other drugs, medicaments and biological substances; Z85.41 Personal history of malignant neoplasm of cervix uteri
CPT/HCPCS: 36415; 74176; 80053; 80306; 81000; 85025; 86141

== ENCOUNTER 2019-09-11 07:32 | Emergency (ER) | payer MEDICAID ==
[~2019-09-11] VITALS: Ht 157.5 cm; Wt 45.9 kg
[~2019-09-11 07:32] MED LIST changes: +ALBUTEROL; +BUDE10.26; +DIVA250T12; +FLUT16SP22; +MONT10TA26; +PANT40TA3
[2019-09-11] MEDS ORDERED: NS IV 500 ML 500 ML IV ONE (07:37)
--- OUTSIDE RECORDS SUMMARY | 2019-09-11 07:40 | XMS REPORT | Continuity of Care Document ---
Author Organization Unknown Address Unknown Phone Unavailable Allergies Active Description Code Type Severity Reaction Onset Reported/Identified Relationship to Patient Clinical Status Yes alprazolam [id number] Drug Allerg y Unknown N/A 05/23/2019 Yes BEES BEES Unknown N/A 05/23/2019 Yes Bleach (Sodium Hypochlorite) [id number] Drug Allergy Unknown N/A 05/23/2019 Yes BODY POWDER BODY POWDER Unknown N/A 05/23/2019 Yes cinnamon [id number] Drug Allergy Unknown N/A 05/23/2019 Yes clonidine [id number] Drug Allergy Unknown N/A 05/23/2019 Yes codeine [id number] Drug Allergy Unknown N/A 05/23/2019 Yes cyclobenzaprine [id number] D rug Allergy Unknown N/A 05/23/2019 Yes FLU SHOT FLU SHOT Un known N/A 05/23/2019 Yes hydrocodone [id number] Drug Aller gy Unknown N/A 05/23/2019 Yes iodine [id number] Drug Allergy Unknown N/A 05/23/2019 Yes Latex, Natural Rubber [id number] Drug Allergy Unknown N/A 05/23/2019 Yes methocarbamol [id number] Durga g Allergy Unknown N/A 05/23/2019 Yes Penicillins [id number] Drug Aller gy Unknown N/A 05/23/2019 Yes pneumococcal vaccine [id number] Drug Allergy Unknown N/A 05/23/2019 Yes STEROIDS STEROIDS Un known N/A 05/23/2019 Yes tramadol [id number] Drug Allergy Unknown N/A 05/23/2019 Yes WASP [...] Johnathan Ot J45.909 UNSPECIFIED ASTHMA, UNCOMPLICATED 05/23/2019 EATON DOJENNIFFER Ot K21. 9 GASTRO-ESOPHAGEAL REFLUX DISEASE WITHOUT 05/23/2019 SHARMA DOJENNIFFER Ot K35. 80 UNSPECIFIED ACUTE APPENDICITIS 05/23/2019 SHARMA DOJENNIFFER Ot N83.201 UNSPECIFIED OVARIAN CYST, RIGHT SIDE 05/23/2019 SHARMA DOJENNIFFER Ot N83.202 UNSPECIFIED OVARIAN CYST, LEFT SIDE 05/23/2019 SHARMA JENNIFFER SUNG Ot Z79.899 OTHER LONG-TERM (CURRENT) DRUG THERAPY 05/23/2019 SHARMA JENNIFFER SUNG [...] SHARMA DO, JENNIFFER D Ot Z79.899 OTHER SUPERVISING BAILIFF (CURRENT) DRUG THERAPY 06/03/2019 SHARMA DO, JENNIFFER D Ot Z88. 0 ALLERGY STATUS TO PENICILLIN 06/03/2019 EATON DO, JENNIFFER D Ot Z88. 5 ALLERGY STATUS TO NARCOTIC AGENT STATUS 06/03/2019 EATON DO, JENNIFFER D Ot Z91.040 LATEX ALLERGY STATUS 06/05/2019 SHARMA DO, JENNIFFER D Ot E11. 9 TYPE 2 DIABETES MELLITUS WITHOUT COMPLIC 06/05/2019 SHARMA DO, JENNIFFER D Ot F17.210 NICOTINE DEPENDENCE, CIGARETTES, UNCOMPL 06/05/2019 SHARMA DO, JENNIFFER D Ot F20. 9 SCHIZOPHRENIA, UNSPECIFIED 06/05/2019 [facility], JENNIFFER D Ot F31. 9 BIPOLAR DISORDER, UNSPECIFIED 06/05/2019 [facility], JENNIFFER D Ot F90. 9 ATTENTION-DEFICIT HYPERACTIVITY DISORDER 06/05/2019 SHARMA DO, JENNIFFER D Ot G40.909 EPILEPSY, UNSP, NOT INTRACTABLE, WITHOUT 06/05/2019 SHARMA DO, JENNIFFER D Ot J45.909 UNSPECIFIED ASTHMA, UNCOMPLICATED 06/05/2019 [facility], JENNIFFER D Ot K21. 9 GASTRO-ESOPHAGEAL REFLUX DISEASE WITHOUT 06/05/2019 SHARMA DO, JENNIFFER D Ot K35. 80 UNSPECIFIED ACUTE APPENDICITIS 06/05/2019 SHARMA DO, JENNIFFER D Ot N83.201 UNSPECIFIED OVARIAN CYST, RIGHT SIDE 06/05/2019 SHARMA DO, JENNIFFER D Ot N83.202 UNSPECIFIED OVARIAN CYST, LEFT SIDE 06/05/2019 SHARMA DO, JENNIFFER D Ot Z79.899 OTHER LONG-TERM (CURRENT) DRUG THERAPY 06/05/2019 SHARMA DO, JENNIFFER D Ot Z88. 0 ALLERGY STATUS TO PENICILLIN 06/05/2019 SHARMA DO, JENNIFFER D Ot Z88. 5 ALLERGY STATUS TO NARCOTIC AGENT STATUS 06/05/2019 SHARMA DO, JENNIFFER D Ot Z91.040 LATEX ALLERGY STATUS 06/15/2019 [facility], JENNIFFER D Ot E11. 9 TYPE 2 DIABETES MELLITUS WITHOUT COMPLIC 06/15/2019 SHARMA DO, JENNIFFER D Ot F17.210 NICOTINE DEPENDENCE, CIGARETTES, UNCOMPL 06/15/2019 EATON DO, JENNIFFER D Ot F20. 9 SCHIZOPHRENIA, UNSPECIFIED 06/15/2019 EATON DO, JENNIFFER D Ot F31. 9 BIPOLAR DISORDER, UNSPECIFIED 06/15/2019 [facility], JENNIFFER D Ot F90. 9 ATTENTION-DEFICIT HYPERACTIVITY DISORDER 06/15/2019 [facility], JENNIFFER D Ot G40.909 EPILEPSY, UNSP, NOT INTRACTABLE, WITHOUT 06/15/2019 [facility], JENNIFFER D Ot J45.909 UNSPECIFIED ASTHMA, UNCOMPLICATED 06/15/2019 SHARMA DO JENNIFFER D Ot K21. 9 GASTRO-ESOPHAGEAL REFLUX DISEASE WITHOUT 06/15/2019 [facility], JENNIFFER D Ot K35. 80 UNSPECIFIED ACUTE APPENDICITIS 06/15/2019 SHARMA DO JENNIFFER D Ot N83.201 UNSPECIFIED OVARIAN CYST, RIGHT SIDE 06/15/2019 [facility] Ot N83.202 UNSPECIFIED OVARIAN CYST, LEFT SIDE 06/15/2019 [facility], JENNIFFER D Ot Z79.899 OTHER LONG-TERM (CURRENT) DRUG THERAPY 06/15/2019 SHARMA DOHECTORTT D Ot Z88. 0 ALLERGY STATUS TO PENICILLIN 06/15/2019 [facility], JENNIFFER D Ot Z88. 5 ALLERGY STATUS TO NARCOTIC AGENT STATUS 06/15/2019 [facility] JENNIFFER D Ot Z91.040 LATEX ALLERGY [...] 7-25 CREATININE 0.58 mg/dL 0.50-1.10 eGFR NON-AFR. ZIMBABWEAN 119 mL/min/1.73m2 > OR = 60 eGFR [...] urinalysis with reflex to culture NO NRG Complete urinalysis with reflex to cultu re - 09/09/19 01:43 Urine color determination YELLOW NRG Urine clarity determination SL CLOUDY N RG Urine pH measurement by test strip 7.0 5-9 Specific gravity of urine by test strip 1.025 1.016-1.022 Urine protein assay by test strip, semi-quantitative NEGATIVE NEGATIVE Urine glucose detection by automated test strip NE GATIVE NEGATIVE Erythrocytes detection in urine sediment by light micr oscopy NEGATIVE NEGATIVE Urine ketones detection by automated test strip NE GATIVE NEGATIVE Urine nitrite detection by test strip [...] in u rine sediment by light microscopy 10-25 NRG Crystals detection in urine sediment by light microsco py NONE NRG Casts detection in urine sediment by light microscopy NONE NRG Mucus detection in urine sediment by light microscopy NEGATIVE NRG Complete urinalysis with reflex to culture NO NRG Urine drug screening test - 09/09/19 01: 43 Urine phencyclidine detection by screening method NEGATIVE [...] TIVE Urine propoxyphene detection NEGATIVE N EGATIVE Complete blood count (CBC) with automate d white blood cell (WBC) differential - 09/09/19 02:00 Blood leukocytes automated count (number/volume) 7.6 10*3/uL 4.3-11.0 Blood erythrocytes automated count (number/volume) 4.47 10*6/uL 4.35-5.85 Venous blood hemoglobin measurement (mass/volume) 13.2 g/dL 11.5-16.0 Blood hematocrit (volume fraction) 39 % 35-52 Automated erythrocyte mean corpuscular volume 87 [ foz_us] 80-99 Automated erythrocyte mean corpuscular h emoglobin (mass per erythrocyte) 30 pg 25-34 Automated erythrocyte mean corpuscular h emoglobin concentration measurement (mass/volume) 34 g/dL 32-36 Automated erythrocyte distribution width ratio 12. 6 % 10.0- 14.5 Automated blood platelet count (count/volume) 118 10*3/uL 130-400 Automated blood platelet mean volume measurement 10.8 [foz_us] 7.4-10.4 Automated blood neutrophils/100 leukocytes 70 % 42-75 Automated blood lymphocytes/100 leukocytes 20 % 12-44 Blood monocytes/100 leukocytes 8 % 0-12 Automated blood eosinophils/100 leukocytes 2 % 0-10 Automated blood basophils/100 leukocytes 0 % 0-10 Blood neutrophils automated count (number/volume) 5.3 10*3 1.8-7.8 Blood lymphocytes automated count (number/volume) 1.5 10*3 1.0-4.0 Blood monocytes automated count (number/volume) 0. 6 10*3 0.0-1.0 Automated eosinophil count 0.2 10*3/uL 0 .0-0.3 Automated blood basophil count (count/volume) 0.0 10*3/uL 0.0-0.1 Comprehensive metabolic panel - 09/09/19 02:00 Serum or plasma sodium measurement (moles/volume) 138 mmol/L 135-145 Serum or plasma potassium measurement (moles/volume) 3.9 mmol/L 3.6-5.0 Serum or plasma chloride measurement (moles/volume) 109 mmol/L 98-107 Carbon dioxide 18 mmol/L 21-32 Serum or plasma anion gap determination (moles/volume) 11 mmol/L 5-14 Serum or plasma urea nitrogen measurement (mass/volume ) 7 mg/dL 7-18 Serum or plasma creatinine measurement (mass/volume) 0.67 mg/dL 0.60-1.30 Serum or plasma urea nitrogen/creatinine mass ratio 10 NRG Serum or plasma creatinine measurement w ith calculation of estimated glomerular filtration rate > NRG Serum or plasma glucose measurement (mass/volume) 91 mg/dL 70-105 Serum or plasma calcium measurement (mass/volume) 9.0 mg/dL 8.5-10.1 Serum or plasma total bilirubin measurement (mass/volu me) 0.5 mg/dL 0.1-1.0 Serum or plasma alkaline phosphatase narciso surement (enzymatic activity/volume) 51 U/L 40-136 Serum or plasma aspartate aminotransfera se measurement (enzymatic activity/volume) 10 U/L 5-34 Serum or plasma alanine aminotransferase measurement (enzymatic activity/volume) < U/L 0-55 Serum or plasma protein measurement (mass/volume) 6.4 g/dL 6.4-8.2 Serum or plasma albumin measurement (mass/volume) 4.2 g/dL 3.2-4.5 CALCIUM CORRECTED 8.8 mg/dL 8.5-10.1 Serum or plasma C reactive protein measu rement (mass/volume) - 09/09/19 02:00 Serum or plasma C reactive protein measurement (mass/v olume) 0.26 mg/dL 0.00-0.50 Encounters ACCT No. Visit Date/Time Discharge Status Pt. Type Provider Facility Loc./Unit Complaint [id number] 08/20/2019 14:30:32 08/20/2019 23:59: 59 [facility] Outpatient JuarezFerdinand [id number] 08/04/2019 13:56:32 08/04/2019 23:59: 59 [facility] Out[facility] Mickey Patel [id number] 07/29/2019 09:51:24 07/29/2019 23:59: 59 [facility] Outpatient JuarezFerdinand [id number] 07/28/2019 11:07:37 07/28/2019 23:59: 59 [facility] Outpatient JuarezFerdinand [id number] 07/23/2019 12:40:22 07/23/2019 23:59: 59 [facility] Outpatient Mickey Patel [id number] 07/17/2019 10:27:22 07/17/2019 23:59: 59 [facility] Outpatient Mickey Patel [id number] 07/13/2019 10:37:03 07/13/2019 23:59: 59 [facility] Outpatient Ferdinand Juarez [id number] 07/09/2019 12:13:46 07/09/2019 23:59: 59 Mickey Vilchis [id number] 06/29/2019 11:24:10 06/29/2019 23:59: 59 [facility] Outpatient HetlingerMickey [id number] 02/27/2019 13:46:57 02/27/2019 23:59: 59 [facility]patient Batsheva Caputo [id number] 02/08/2019 13:56:54 02/08/2019 23:59: 59 [facility] Outpatient Yadira Balderas [id number] 01/22/2019 10:20:16 01/22/2019 23:59: 59 [facility] Outpatient HetlingerMickey [id number] 01/07/2019 10:47:32 01/07/2019 23:59: 59 [facility] Outpatient Claire Aristeo [id number] 12/02/2018 09:54:22 12/02/2018 23:59: 59 [facility] Outpatient HetlingerMickey [id number] 11/03/2018 15:37:38 11/03/2018 23:59: 59 [facility] Outpatient HetlingerMickey [id number] 10/15/2018 10:59:09 10/15/2018 23:59: 59 [facility] Outpatient HetlingerMickey [id number] 09/04/2018 09:37:13 09/04/2018 23:59: 59 [facility] Outpatient HetlingerMickey [id number] 07/31/2018 15:12:57 07/31/2018 23:59: 59 [facility] Outpatient HetlingerMickey [id number] 07/10/2018 09:18:04 07/10/2018 23:59: 59 [facility] Outpatient HetlingerMickey [id number] 06/24/2018 10:43:23 06/24/2018 23:59: 59 [facility] Outpatient HetlingerMickey [id number] 06/04/2018 11:20:22 06/04/2018 23:59: 59 [facility] Outpatient Yadira Balderas [id number] 05/06/2018 15:32:30 05/06/2018 23:59: 59 [facility] Outpatient HetlingerMickey [id number] 04/03/2018 09:37:50 04/03/2018 23:59: 59 [facility] Outpatient HetlingerMickey [id number] 03/20/2018 11:11:28 03/20/2018 23:59: 59 [facility] Outpatient HetlingerMickey [id number] 03/11/2018 10:50:55 03/11/2018 23:59: 59 [facility] Outpatient Ferdinand Juarez [id number] 02/18/2018 13:28:03 02/18/2018 23:59: 59 [facility] Outpatient HetlingerMickey [id number] 02/10/2018 10:51:33 02/10/2018 23:59: 59 [facility] Outpatient HetlingerMickey [id number] 12/20/2017 14:19:13 12/20/2017 23:59: 59 [facility] Outpatient Humberto Juarezitya [id number] 12/10/2017 14:32:02 12/10/2017 23:59: 59 [facility] Outpatient LitlingerMickey [id number] 12/03/2017 12:57:15 12/03/2017 23:59: 59 [facility] Outpatient Renetta Parson [id number] 11/20/2017 14:04:08 11/20/2017 23:59: 59 [facility] Outpatient Juarez, Ferdinand [id number] 09/30/2017 17:19:48 09/30/2017 23:59: 59 [facility] Outpatient LitlingerMickey [id number] 09/13/2017 12:27:47 09/13/2017 23:59: 59 [facility] Outpatient Juarez, Ferdinand [id number] 09/10/2017 14:29:38 09/10/2017 23:59: 59 [facility] Outpatient HetlingerMickey [id number] 09/03/2017 14:05:51 09/03/2017 23:59: 59 [facility] Outpatient Caroline Crystal [id number] 08/29/2017 09:24:21 08/29/2017 23:59: 59 [facility] Outpatient LitlingerMickey [id number] 08/02/2017 09:47:02 08/02/2017 23:59: 59 [facility] Outpatient Juarez Ferdinand [id number] 07/05/2017 10:07:35 07/05/2017 23:59: 59 [facility] Outpatient Juarez Ferdinand [id number] 07/01/2017 14:31:22 07/01/2017 23:59: 59 [facility] Outpatient HetlingerMickey [id number] 05/23/2017 10:13:42 05/23/2017 23:59: 59 [facility] Outpatient HetlingerMickey [id number] 05/09/2017 11:24:04 05/09/2017 23:59: 59 [facility] Outpatient HetlingerMickey [id number] 05/02/2017 10:38:44 05/02/2017 23:59: 59 [facility] Outpatient Juarez Ferdinand [id number] 04/04/2017 10:18:56 04/04/2017 23:59: 59 [facility] Outpatient HetlingerMickey [id number] 03/19/2017 14:48:27 03/19/2017 23:59: 59 [facility] Outpatient HetlingerMickey [id number] 03/11/2017 11:48:50 03/11/2017 23:59: 59 [facility] Outpatient Yadira Balderas [id number] 02/20/2017 10:52:16 02/20/2017 23:59: 59 [facility] Outpatient HetlingerMickey [id number] 02/20/2017 09:46:45 02/20/2017 23:59: 59 [facility] Outpatient Humberto Juarezitya [id number] 01/30/2017 15:43:51 01/30/2017 23:59: 59 [facility] Outpatient Yadira Balderas [id number] 01/09/2017 09:57:07 01/09/2017 23:59: 59 [facility] Outpatient Humberto Juarezitya [id number] 01/08/2017 09:33:15 01/08/2017 23:59: 59 [facility] Outpatient HetlingerMickey [id number] 12/28/2016 10:42:30 12/28/2016 23:59: 59 [facility] Outpatient Yadira Balderas [id number] 12/19/2016 11:53:01 12/19/2016 23:59: 59 [facility] Outpatient HetlingerMickey [id number] 12/12/2016 11:17:08 12/12/2016 23:59: 59 [facility] Outpatient HetlingerMickey [id number] 11/29/2016 16:13:40 11/29/2016 23:59: 59 [facility] Outpatient Laura Ferdinand [id number] 10/17/2016 11:41:04 10/17/2016 23:59: 59 [facility] Outpatient HetlingerMickey [id number] 10/13/2016 11:59:53 10/13/2016 23:59: 59 [facility] Outpatient Miriam Ireland [id number] 10/12/2016 18:00:26 10/12/2016 23:59: 59 [facility] Outpatient Aristeo Rangel [id number] 10/02/2016 10:37:18 10/02/2016 23:59: 59 [facility] Outpatient Hetlinggabriella Mickey [id number] 09/05/2016 10:45:51 09/05/2016 23:59: 59 [facility] Outpatient HetlingerMickey [id number] 08/27/2016 16:18:10 08/27/2016 23:59: 59 [facility] Outpatient Mickey Patel [id number] 08/21/2016 18:04:56 08/21/2016 23:59: 59 [facility] Outpatient Miriam Ireland [id number] 08/26/2013 16:37:35 08/26/2013 23:59: 59 [facility] Outpatient Andres Cook [id number] 07/26/2013 21:10:03 07/26/2013 23:59: 59 [facility] Outpatient Kristi Fierro [id number] 07/26/2013 21:07:42 07/26/2013 23:59: 59 [facility] Outpatient Andres Cook [id number] 07/09/2013 16:06:37 07/09/2013 23:59: 59 [facility] Outpatient Andres Cook [id number] 06/29/2013 15:13:43 06/29/2013 23:59: 59 [facility] Outpatient Andres Cook [id number] 06/04/2013 11:38:01 06/04/2013 23:59: 59 [facility] Outpatient Andres Cook [id number] 04/09/2013 15:44:05 04/09/2013 23:59: 59 [facility] Outpatient Andres Cook [id number] 07/22/2019 13:00:00 07/22/2019 23:59: 59 [facility] Outpatient BRIEN B[facility]ZUELA [facility] [id number] 07/10/2019 09:00:00 Document Registration [id number] 03/22/2019 12:05:00 Document Registration [id number] 09/09/2019 01:32:00 03:13:00 DIS Emergency JASPER PAULSON, BRYAN Mann [facility] ABD PAIN [id number] 09/07/2019 22:54:00 01:59:00 DIS Emergency GRACE PAULSON, DEANDRE Olivera [facility] ABD PAIN,BACK PAIN,CONSTIPATION [id number] 08/10/2019 13:11:00 23:59:59 [facility] Outpatient JUAREZ DO, FERDINAND [facility] RAD BALANCE DISORDER, FALLS FREQUENTLY [id number] 05/23/2019 18:50:00 02/29/2 020 21:00:00 DIS Outpatient JENNIFFER SHARMA DO [facility] R SIDE ABD PAIN, N/V [id number] 11/11/2012 17:15:00 013 21:35:00 DIS Outpatient XANDER BRANDT DO Via [facility] [id number] 11/09/2012 20:19:00 013 23:36:00 DIS Emergency
[2019-09-11] MEDS ORDERED: ONDANSETRON 4 MG/2 ML (SDV) Z0FRAN IVP ONE (07:45)
[2019-09-11] MEDS ORDERED: KETOROLAC 30 MG/ML VIAL IVP ONE (07:45)
--- NOTE | 2019-09-11 07:46 | ED GU-Female ---
General Chief Complaint: Abdominal/GI Problems Stated Complaint: LOWER ABD PAIN;VOMITING Source: patient Exam Limitations: no limitations History of Present Illness Date Seen by Provider: Sep 11, 2019 Time Seen by Provider: 07:35 Initial Comments Patient presents ER by EMS from home with chief complaint that she is having right-sided lower pelvis pain for the past 4 days. She had a CT scan in the ER demonstrating an ovarian cyst. She has an outpatient ultrasound scheduled in 3 days on Saturday. Said the pain came back 10 out of 10 and her nausea came back. She does not have anything at home for nausea she has been using her hydrocodone that she had left over from a previous incident. She states that last time Tor adol helped her pain. She's not having any fever cough chills shortness of breath or recent travel or exposures to sick people. She's had a hysterectomy and laparoscopy which showed ovarian cyst but no history of endometriosis. She is passing normal bowel movements with her last one being yesterday. She denies dysuria hematuria. Allergies and Home Medications Allergies Coded Allergies: Bleach (Sodium Hypochlorite) (Unverified Allergy, Unknown, 05/23/19) Latex, Natural Rubber (Unverified Allergy, Unknown, 05/23/19) Penicillins (Verified Allergy, Unknown, 05/23/19) alprazolam (Unverified Allergy, Unknown, 05/23/19) cinnamon (Unverified Allergy, Unknown, 05/23/19) clonidine (Verified Allergy, Unknown, 05/23/19) codeine (Verified Allergy, Unknown, 05/23/19) cyclobenzaprine (Unverified Allergy, Unknown, 05/23/19) hydrocodone (Verified Allergy, Unknown, 05/23/19) iodine (Verified Allergy, Unknown, 05/23/19) RASH methocarbamol (Unverified Allergy, Unknown, 05/23/19) pneumococcal vaccine (Unverified Allergy, Unknown, 05/23/19) tramadol (Unverified Allergy, Unknown, 05/23/19) Uncoded Allergies: BEES (Allergy, Unknown, 05/23/19) BODY POWDER (Allergy, Unknown, 05/23/19) FLU SHOT (Allergy, Unknown, 05/23/19) STEROIDS (Allergy, Unknown, 05/23/19) WASP (Allergy, Unknown, 05/23/19) Home Medications Hydrocodone Bit/Acetaminophen 1 Tab Tab, 1-2 TAB PO Q6H PRN for PAIN-MODERATE Prescribed by: JENNIFFER SHARMA on 05/23/19 8816 Patient Home Medication List Home Medication List Reviewed: Yes Review of Systems Review of Systems Constitutional: No chills, No diaphoresis EENTM: No ear discharge, No ear pain Respiratory: No cough, No short of breath Cardiovascular: No chest pain, No edema Gastrointestinal: see HPI, abdominal pain; No constipation, No diarrhea Genitourinary: denies burning, denies discharge : No Musculoskeletal: No back pain, No joint pain All Other Systemes Reviewed Negative Unless Noted: Yes Past Koorpwe-Pydafr-Fpvdky Hx Patient Social History Alcohol Use: Occasionally Uses Recreational Drug Use: No Smoking Status: Current Everyday Smoker Type Used: Cigarettes Recent Hopitalizations: No Seasonal Allergies Seasonal Allergies: Yes Past Medical History Surgeries: Yes (BMT) Adenoidectomy, Hysterectomy, Tonsillectomy Respiratory: Yes Asthma Cardiac: No Neurological: Yes Seizure Disorder Reproductive Disorders: No Female Reproductive Disorders: Menstrual Problems, 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 Sexually Transmitted Disease: No HIV/AIDS: No Genitourinary: Yes Bladder Infection Gastrointestinal: No Gastroesophageal Reflux Musculoskeletal: No Endocrine: Yes Diabetes, Non-Insulin dep HEENT: No Cancer: Yes Cervical Psychosocial: Yes ADD/ADHD, Anxiety, Bipolar, Schizophrenia, Depression Integumentary: No Blood Disorders: Yes (ANEMIA) Family Medical History No Pertinent Family Hx Physical Exam Vital Signs Vital Signs - First Documented 09/11/19 07:32 Temp 36.3 Pulse 75 Resp 16 B/P (MAP) 93/82 (86) Pulse Ox 98 O2 Delivery Room Air Capillary Refill : Height, Weight, BMI Height: '" Weight: 97lbs. oz. 43.533450ae; 20.00 BMI Method:Stated General Appearance: WD/WN, no apparent distress HEENT: PERRL/EOMI, normal ENT inspection, TMs normal, pharynx normal Neck: non-tender, full range of motion, supple Cardiovascular: normal peripheral pulses, regular rate, rhythm Respiratory: lungs clear, normal breath sounds, no respiratory distress, no accessory muscle use Gastrointestinal: normal bowel sounds, non tender, soft Extremities: non-tender, normal inspection, normal capillary refill Neurologic/Psychiatric: alert, normal mood/affect, oriented x 3 Skin: normal color, warm/dry Progress/Results/Core Measures Suspected Sepsis SIRS Temperature: Pulse: Respiratory Rate: Laboratory Tests 09/11/19 07:38: White Blood Count 6.1 Blood Pressure / Mean: Laboratory Tests 09/11/19 07:38: Creatinine 0.69, Platelet Count 169, Total Bilirubin 0.3 Results/Orders Lab Results Laboratory Tests Test 09/11/19 07:38 09/11/19 07:57 Range/Units White Blood Count 6.1 4.3-11.0 10^3/uL Red Blood Count 4.71 4.35-5.85 10^6/uL Hemoglobin 13.8 11.5-16.0 G/DL Hematocrit 40 35-52 % Mean Corpuscular Volume 85 80-99 FL Mean Corpuscular Hemoglobin 29 25-34 PG Mean Corpuscular Hemoglobin Concent 35 32-36 G/DL Red Cell Distribution Width 12.7 10.0-14.5 % Platelet Count 169 130-400 10^3/uL Mean Platelet Volume 10.7 H 7.4-10.4 FL Neutrophils (%) (Auto) 59 42-75 % Lymphocytes (%) (Auto) 29 12-44 % Monocytes (%) (Auto) 10 0-12 % Eosinophils (%) (Auto) 2 0-10 % Basophils (%) (Auto) 0 0-10 % Neutrophils # (Auto) 3.6 1.8-7.8 X 10^3 Lymphocytes # (Auto) 1.8 1.0-4.0 X 10^3 Monocytes # (Auto) 0.6 0.0-1.0 X 10^3 Eosinophils # (Auto) 0.1 0.0-0.3 10^3/uL Basophils # (Auto) 0.0 0.0-0.1 10^3/uL Sodium Level 138 135-145 MMOL/L Potassium Level 3.7 3.6-5.0 MMOL/L Chloride Level 108 H 98-107 MMOL/L Carbon Dioxide Level 20 L 21-32 MMOL/L Anion Gap 10 5-14 MMOL/L Blood Urea Nitrogen 10 7-18 MG/DL Creatinine 0.69 0.60-1.30 MG/DL Estimat Glomerular Filtration Rate > 60 BUN/Creatinine Ratio 14 Glucose Level 95 70-105 MG/DL Calcium Level 9.6 8.5-10.1 MG/DL Corrected Calcium 9.4 8.5-10.1 MG/DL Total Bilirubin 0.3 0.1-1.0 MG/DL Aspartate Amino Transf (AST/SGOT) 9 5-34 U/L Alanine Aminotransferase (ALT/SGPT) < 6 0-55 U/L Alkaline Phosphatase 53 40-136 U/L Total Protein 6.5 6.4-8.2 GM/DL Albumin 4.3 3.2-4.5 GM/DL Lipase 25 8-78 U/L Urine Color YELLOW Urine Clarity SL CLOUDY Urine pH 6.0 5-9 Urine Specific [place] >=1.030 1.016-1.022 Urine Protein NEGATIVE NEGATIVE Urine Glucose (UA) NEGATIVE NEGATIVE Urine Ketones NEGATIVE NEGATIVE Urine Nitrite NEGATIVE NEGATIVE Urine Bilirubin NEGATIVE NEGATIVE Urine Urobilinogen 0.2 < = 1.0 MG/DL Urine Leukocyte Esterase NEGATIVE NEGATIVE Urine RBC (Auto) NEGATIVE NEGATIVE Urine RBC NONE /HPF Urine WBC RARE /HPF Urine Squamous Epithelial Cells 5-10 /HPF Urine Crystals NONE /LPF Urine Bacteria FEW H /HPF Urine Casts NONE /LPF Urine Mucus SMALL H /LPF Urine Culture Indicated NO My Orders Orders - PHYLICIA MCHUGH Ed Iv/Invasive Line Start (09/11/19 07:37) Ns Iv 500 Ml (Sodium Chloride 0.9%) (09/11/19 07:37) Us Non Ob Transvaginal 36625 (09/11/19 07:37) Ketorolac Injection (Toradol Injection) (09/11/19 07:45) Ondansetron Injection (Zofran Injectio (09/11/19 07:45) Cbc With Automated Diff (09/11/19 07:37) Comprehensive Metabolic Panel (09/11/19 07:37) Lipase (09/11/19 07:37) Ua Culture If Indicated (09/11/19 07:37) Medications Given in ED Current Medications Medications Dose Ordered Sig/Delon Route Start Time Stop Time Status Last Admin Dose Admin Ketorolac Tromethamine 30 mg ONCE ONCE IVP 09/11/19 07:45 09/11/19 07:46 DC 09/11/19 07:48 30 MG Ondansetron HCl 8 mg ONCE ONCE IVP 09/11/19 07:45 09/11/19 07:46 DC 09/11/19 07:47 8 MG Sodium Chloride 500 ml @ 0 mls/hr Q0M ONCE IV 09/11/19 07:37 09/11/19 07:42 DC 09/11/19 07:48 500 MLS/HR Vital Signs/I&O 09/11/19 07:32 Temp 36.3 Pulse 75 Resp 16 B/P (MAP) 93/82 (86) Pulse Ox 98 O2 Delivery Room Air Capillary Refill : Progress Note : Time: 09:08 Progress Note Ultrasound shows a ruptured ovarian cyst with good blood flow. Plan to encourage her to take NSAIDs and follow-up at your scheduled appointments. Diagnostic Imaging Diagonstic Imaging: Ultrasound Plain Films/CT/US/NM/MRI: pelvis (non-OB) Comments Right ruptured ovarian cyst with small amount of free fluid and good blood flow to the ovaries. Reviewed: Reviewed by Me Departure Impression Primary Impression: Rupture of follicular cyst of ovary Disposition: HOME, SELF-CARE Condition: Stable Departure-Patient Inst. Decision time for Depature: 09:09 Referrals: MARIAJOSE MILLER MD (PCP/Family) Primary Care Physician Patient Instructions: Ovarian Cyst (DC) Add. Discharge Instructions: You've had a ruptured ovarian cyst and you should expect to see improvement over the next week. Ibuprofen 800 mg every 8 hours as necessary for pain. Tylenol 1000 mg every 8 hours as necessary for pain. Heating pads can be helpful for pain. Keep your follow-up appointments as scheduled. All discharge instructions reviewed with patient and/or family. Voiced understanding. PHYLICIA MCHUGH Sep 11, 2019 07:46
[2019-09-11 07:48] LABS: BASOPHILS % (AUTO) 0 % (0-10); EOSINOPHILS # (AUTO) 0.1 10^3/uL (0.0-0.3); EOSINOPHILS % (AUTO) 2 % (0-10); HEMATOCRIT 40 % (35-52); HEMOGLOBIN 13.8 G/DL (11.5-16.0); LYMPHOCYTES # (AUTO) 1.8 X 10^3 (1.0-4.0); LYMPHOCYTES % (AUTO) 29 % (12-44); MEAN CORPUSCULAR HEMOGLOBIN 29 PG (25-34); MEAN CORPUSCULAR HGB CONC 35 G/DL (32-36); MEAN CORPUSCULAR VOLUME 85 FL (80-99); MEAN PLATELET VOLUME 10.7 FL (7.4-10.4); MONOCYTES # (AUTO) 0.6 X 10^3 (0.0-1.0); MONOCYTES % (AUTO) 10 % (0-12); NEUTROPHILS # (AUTO) 3.6 X 10^3 (1.8-7.8); NEUTROPHILS % (AUTO) 59 % (42-75); PLATELET COUNT 169 10^3/uL (130-400); RED CELL DISTRIBUTION WIDTH 12.7 % (10.0-14.5); WHITE BLOOD COUNT 6.1 10^3/uL (4.3-11.0)
[2019-09-11 07:57] LABS: ALBUMIN 4.3 GM/DL (3.2-4.5); CHLORIDE 108 MMOL/L (98-107); POTASSIUM 3.7 MMOL/L (3.6-5.0); SODIUM 138 MMOL/L (135-145)
[2019-09-11 07:58] LABS: CALCIUM 9.6 MG/DL (8.5-10.1)
[2019-09-11 07:59] LABS: GLUCOSE 95 MG/DL (70-105); TOTAL PROTEIN 6.5 GM/DL (6.4-8.2)
[2019-09-11 08:00] LABS: CARBON DIOXIDE 20 MMOL/L (21-32)
[2019-09-11 08:01] LABS: BILIRUBIN,TOTAL 0.3 MG/DL (0.1-1.0)
[2019-09-11 08:02] LABS: ALKALINE PHOSPHATASE 53 U/L (40-136)
[2019-09-11 08:03] LABS: CREATININE SERUM 0.69 MG/DL (0.60-1.30); GFR ESTIMATED > 60
[2019-09-11 08:04] LABS: BUN/CREATININE RATIO 14
[2019-09-11 08:05] LABS: BILIRUBIN,URINE NEGATIVE (NEGATIVE); CLARITY,URINE SL CLOUDY; COLOR,URINE YELLOW; GLUCOSE, URINE (UA) NEGATIVE (NEGATIVE); KETONES,URINE NEGATIVE (NEGATIVE); LEUKOCYTE ESTERASE ,URINE NEGATIVE (NEGATIVE); NITRITE,URINE NEGATIVE (NEGATIVE); PROTEIN,URINE NEGATIVE (NEGATIVE)
[2019-09-11 08:06] LABS: ALANINE AMINOTRANSFERASE < 6 U/L (0-55); LIPASE 25 U/L (8-78)
[2019-09-11 08:14] LABS: BACTERIA,URINE FEW /HPF; WBC,URINE RARE /HPF
[2019-09-11] MEDS ORDERED: ONDA4TAB11 PO (09:17)
[2019-09-11 09:20] VITALS: BP 99/46
--- NOTE | 2019-09-11 09:46 | Diagnostic Imaging Report ---
PROCEDURE: US Non-ob pelvis comp/trans. TECHNIQUE: Multiple realtime grayscale images were obtained of the pelvis in various projections endovaginally. Transabdominal imaging was also performed. INDICATION: Pelvic pain. Patient had recent abnormal CT study demonstrating an indeterminate fluid collection in the pelvis. The study is performed for further evaluation. Correlation is made with the recent CT study from 09/09/2019. The uterus is surgically absent. Left ovary is not visualized. Right ovary measures 3.2 x 2.6 x 3.3 cm. There is a probable hemorrhagic cyst in the right ovary measuring 2.6 x 2.0 x 2.4 cm. There is free fluid adjacent to this. Moderate free fluid in the pelvis is noted. IMPRESSION: 1. Status post hysterectomy. There is a probable hemorrhagic cyst involving the right ovary as well as free fluid. Dictated by: Dictated on workstation # [id number]
== END 2019-09-11 09:20 | disposition home or self-care (01) ==
LOC: EDUNIT# 07:32 → ER 07:34
DX: N83.01 Follicular cyst of right ovary (principal); F17.210 Nicotine dependence, cigarettes, uncomplicated; Z91.040 Latex allergy status; Z88.0 Allergy status to penicillin; Z88.5 Allergy status to narcotic agent; Z88.1 Allergy status to other antibiotic agents; Z88.8 Allergy status to other drugs, medicaments and biological substances; Z85.41 Personal history of malignant neoplasm of cervix uteri
CPT/HCPCS: 36415; 76830; 76856; 80053; 81000; 83690; 85025

== ENCOUNTER → 2020-04-18 | Outpatient (CLI) | payer MEDICAID ==
[~2020-04-18] MED LIST changes: -MONT10TA26; +MONT10TA97; +ONDA4TAB11 PO; -PANT40TA3; +PANT40TA52; +RT-ALBUTEROL SULF 2.5 MG/3 ML PRE-MIX VIAL INH ONE
== END ==
LOC: RT 15:30
PROVIDERS: ATTEND Nurse Practitioner Family
DX: R06.02 Shortness of breath (principal); Z87.09 Personal history of other diseases of the respiratory system
CPT/HCPCS: 94060; 94726; 94729

== ENCOUNTER 2020-07-14 16:13 | Emergency (ER) | payer OTHER, MEDICAID ==
[~2020-07-14] VITALS: Ht 157.5 cm; Wt 49.9 kg
[~2020-07-14 16:13] MED LIST changes: +MONT10TA32; -MONT10TA97; -RT-ALBUTEROL SULF 2.5 MG/3 ML PRE-MIX VIAL INH ONE
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
[2020-07-14] MEDS ORDERED: CEFD300C3 PO (17:17)
[2020-07-14 17:23] VITALS: BP 94/60
== END 2020-07-14 17:23 | disposition home or self-care (01) ==
LOC: EDUNIT# 16:13 → ER 16:15
DX: S16.1XXA Strain of muscle, fascia and tendon at neck level, initial encounter (principal); J45.909 Unspecified asthma, uncomplicated; E11.9 Type 2 diabetes mellitus without complications; Z77.22 Contact with and (suspected) exposure to environmental tobacco smoke (acute) (chronic); Z91.040 Latex allergy status; Z88.5 Allergy status to narcotic agent; Z91.041 Radiographic dye allergy status; Z88.0 Allergy status to penicillin; Z88.8 Allergy status to other drugs, medicaments and biological substances; Z91.030 Bee allergy status; V89.2XXA Person injured in unspecified motor-vehicle accident, traffic, initial encounter
CPT/HCPCS: 70450; 72100; 72125